=== PATIENT | male | born 1955 | race Caucasian/White ===

== ENCOUNTER 2018-01-18 09:15 | Outpatient (RCR) | payer BC, SELFPAY ==
[2018-01-04 09:37] VITALS: BP 156/98; PULSE 82; RESP 18; TEMP 36.3; BMI 28.6
--- NOTE | 2018-01-04 11:03 | PCM.WC.HP ---
(1) Wound of right leg Status: Acute Current Visit: Yes Qualifiers: Encounter type: initial encounter Qualified Code(s): S81.801A - Unspecified open wound, right lower leg, initial encounter Code(s): S81.801A - Unspecified open wound, right lower leg, initial encounter (2) Chronic venous insufficiency Status: Chronic Current Visit: Yes Code(s): I87.2 - Venous insufficiency (chronic) (peripheral) (3) Venous hypertension of right lower extremity Status: Chronic Current Visit: Yes Code(s): I87.301 - Chronic venous hypertension (idiopathic) without complications of right lower extremity (4) Varicose veins with inflammation Status: Chronic Current Visit: Yes Code(s): I83.10 - Varicose veins of unspecified lower extremity with inflammation (5) Hypertension Status: Chronic Current Visit: No Code(s): I10 - Essential (primary) hypertension (6) Atrial fibrillation Status: Chronic Current Visit: No Code(s): I48.91 - Unspecified atrial fibrillation (7) Hyperlipidemia Status: Chronic Current Visit: No Code(s): E78.5 - Hyperlipidemia, unspecified (8) Swelling of right lower extremity Status: Chronic Current Visit: Yes Code(s): M79.89 - Other specified soft tissue disorders (9) Edema of right lower extremity Status: Chronic Current Visit: Yes Code(s): R60.0 - Localized edema (10) History of mitral valve replacement Status: Chronic Current Visit: No Code(s): Z95.2 - Presence of prosthetic heart valve (11) Hyperpigmentation Status: Chronic Current Visit: Yes Code(s): L81.9 - Disorder of pigmentation, unspecified History of Present Illness Chief Complaint: Traumatic wound of the right anterior tibial surface, having occurred approximately 3-4 weeks prior to presentation History of Wound: This is a 62-year-old male who presents with a traumatic wound of the right anterior tibial surface. The patient indicates that he traumatized the right anterior tibial surface approximately 3-4 weeks ago, resulting in an open wound. He has been self treating. Approximately 4-5days ago, very profuse bleeding occurred from the site, prompting him to seek medical attention at the emergency department at [facility]. Patient was placed on Keflex 500 mg p.o. 4 times daily, and referred for further evaluation and management. 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 He denies a history of thrombophlebitis in the past. He has previously been treated for an ulceration on the right anterior tibial surface. He claims to have swelling in his right lower extremity, worse at the end of the day. He sleeps in a chair, with his legs in a dependent position. He has stigmata of chronic venous insufficiency, with large, bulging varicosities in his right lower extremity, as well as areas of hyperpigmentation on the right anterior tibial surface and near the right medial malleolus. Past Medical History Past Medical History: Chronic Problems Chronic venous insufficiency (Chronic) Venous hypertension of right lower extremity (Chronic) Varicose veins with inflammation (Chronic) Hypertension (Chronic) Atrial fibrillation (Chronic) Hyperlipidemia (Chronic) Swelling of right lower extremity (Chronic) Edema of right lower extremity (Chronic) History of mitral valve replacement (Chronic) Hyperpigmentation (Chronic) Past Medical History: The patient has a history of hypertension and hyperlipidemia. He has also undergone mitral valve replacement. He suffers from atrial fibrillation. The patient denies a history of myocardial infarction, congestive heart failure, cerebrovascular accident, cancer, renal disease, pulmonary disease, and thyroid disease. Surgical History: - - Patient has previously undergone mitral valve replacement. Home Medications: Ambulatory Orders Medication Instructions Recorded Amoxicillin/Potassium Clav [Amox 1 each PO BID 06/20/14 Tr-K Clv 500-125 mg Tab] Losartan Potassium [Cozaar] 100 mg PO DAILY 06/20/14 - Family History Paternal - - The patient's father at the age of 74 with a history of chronic obstructive pulmonary disease. The patient's mother at age of 83 with a history of chronic obstructive pulmonary disease. 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 He denies the use of tobacco products. He consumes alcohol in moderate amounts. He is . Lives: Spouse/ Significant Other Smoking Status: Never smoker Tobacco Use: Non-smoker Alcohol: Occasional Drugs: None Review of Systems Constitutional: Denies: Chills, Fever, Weight Change Eyes: Denies: Pain, Vision Change HEENT: Denies: Difficulty Hearing, Difficulty Swallowing, Sinus Congestion Cardiovascular: Denies: Chest Pain, Palpitations Respiratory: Denies: Cough, Shortness of Breath Gastrointestinal: Denies: Diarrhea, Nausea, Vomiting Genitourinary: Denies: Dysuria, Hematuria Endocrine: Denies: Heat/ Cold Intolerance, Polydipsia, Polyuria Hematologic/ Lymphatic: Denies: Easy Bruising, Easy Bleeding - Physical Exam Vital Signs Temp Pulse Resp BP 97.3 F L 82 18 156/98 H 01/04/18 09:37 10 09:37 01/04/18 09:37 01/04/18 09:37 General: Alert, Oriented x3, Cooperative, No apparent distress, Well developed, Well nourished HEENT: Atraumatic, PERRLA, EOMI, Normocephalic Oral: Moist Mucosa, No Gingival or Mucosal Lesions/ Ulcerations Neck: Supple, No JVD, Negative Carotid Bruits, Negative Hepatojugular Reflux, No Nodes, No Nuchal Rigidity, Trachea Midline Lungs: Clear to auscultation, Normal air movement, No rhonchi, No wheeze, No rales Cardiovascular: Regular rate, Regular Rhythm, Normal S1, Normal S2, No murmurs Abdomen: Soft, Non Tender, Non-Distended Extremities: No clubbing, No cyanosis, No Calf Tenderness, - - An open wound is noted on the right anterior tibial surface. Dimensions are documented elsewhere. The wound is pink and healthy in appearance. There is no sign of infection or cellulitis. Mild swelling and edema is noted in the right lower extremity. Circumference measurements are documented elsewhere. Severe hyperpigmentation is noted on the right anterior tibial surface about the patient's wound, as well as near the right medial malleolus. There are large varicosities noted on the medial aspect of the right lower extremity in the supramalleolar area. Skin: No rashes Wound Measurements and Assessment WC - Nurse 1 - General Ulcer Measurement Start: 01/04/18 09:34 Freq: Status: Active Protocol: Activity Type Activity Date Activity User E-Sign Co-Sign Detail Recorded Client Recorded Date Recorded By Document 01/04/18 09:37 [id number] 01/04/18 09:51 01/04/18 09:37 Wound Center Nurse 1 [Ulcer Assessment] #3 right cook -Combined with other wound No -Current Size (cm) - Length 2.8 -Current Size (cm) - Width 2.0 -Current Size (cm) - Depth 0.1 -Total Square Cm 5.60 -Date of Last Picture (Recall this 01/04/18 field) -Photo Taken Yes -Epithelialization Small 1-33% -Tunneling No -Undermining/Tunneling No -Circular Undermining No -Classification - Thickness Full Thickness without Exposed Support Structure -Exudate Amt Large (67-100%) -Exudate Type Serosanguineous -Wound Margin Distinct, Outline Attached -Granulation Amt Large (67-100%) -Granulation Quality Red -Slough/Fibrin Yes -Necrosis Amt Small (1-33%) -Necrotic Tissue Type Adherent Slough -Structure Exposed Fascia Fat Layer Exposed -Texture (Yaquelin-wound Skin Appearance) Assessed Localized Edema Scarring -Moisture ([place]elin-wound Skin Appearance No Abnormality ) Assessed -Color ([place]aquelin-wound Skin Appearance) Ecchymosis Erythema Hemosiderin Staining -Temperature ([place]elin-wound Skin No Abnormality Appearance) (Pt Warm) -Tenderness on Palpation ([place]aquelin-wound No Skin Appearance) -Ulcer Cleansing Rinsed/ Irrigated with Saline -Foul Odor after Cleansing No -Anesthetic Used 4% Lidocaine Solution [Edema Assessment] -Right Calf (cm) 45.7 -Right Ankle (cm) 25.4 -Left Calf (cm) 40.6 -Left Ankle (cm) 25.0 WC - Nurse 2 - General Ulcer CM Notes Start: 01/04/18 09:34 Freq: Status: Active Protocol: Activity Type Activity Date Activity User E-Sign Co-Sign Detail Recorded Client Recorded Date Recorded By Document 01/04/18 10:34 BRENDEN [id number] 01/04/18 10:38 BRENDEN 01/04/18 10:34 Wound Center Nurse 2 [Procedure/Treatment] #3 right cook -Time 10:34 -Correct Patient Yes -Correct Side, Site, Position Yes -Correct Procedure Yes -Procedure Performed No -Wound/Ulcer Outcome Not Healed -Ulcer Cleansing Rinsed/ Irrigated with Saline -Foul Odor after Cleansing No -Bioengineered Tissue No -Topical Lidocaine (%) 4 -Lidocaine (ml) 5 -Bleeding Controlled with NA -Treatment Response Procedure Tolerated Well [See Physician Procedure note for Specifics] Pain Scale: 0-10 Numeric [Pain] -Is Patient Pain Free? Yes Musculoskeletal: No Muscle Wasting Neurological: Cranial nerves II-XII grossly intact, Neuro grossly intact Psych/Mental Status: Normal Affect, Appropriate, Alert and oriented to time, place, person, mood and affect Debridement Note Post-Debridement Measurements/Treatment WC - Nurse 2 - General Ulcer CM Notes Start: 01/04/18 09:34 Freq: Status: Active Protocol: Activity Type Activity Date Activity User E-Sign Co-Sign Detail Recorded Client Recorded Date Recorded By Document 01/04/18 10:34 BRENDEN [id number] 01/04/18 10:38 BRENDEN 01/04/18 10:34 Wound Center Nurse 2 #3 right cook -Time 10:34 -Correct Patient Yes -Correct Side, Site, Position Yes -Correct Procedure Yes -Procedure Performed No -Wound/Ulcer Outcome Not Healed -Ulcer Cleansing Rinsed/ Irrigated with Saline -Foul Odor after Cleansing No -Bioengineered Tissue No -Topical Lidocaine (%) 4 -Lidocaine (ml) 5 -Bleeding Controlled with NA -Treatment Response Procedure Tolerated Well Pain Scale: 0-10 Numeric Is Patient Pain Free? Yes No debridement was completed today - Because the patient relates severe bleeding from the wound site approximately 4-5 days ago, which prompted a visit to the emergency department at [facility], debridement was not performed today. In addition, because the patient is on a systemic anticoagulation agent, debridement was not thought optimal today, under the circumstances. Assessment/Plan Active Problems Wound of right leg (Acute) Chronic venous insufficiency (Chronic) Venous hypertension of right lower extremity (Chronic) Varicose veins with inflammation (Chronic) Swelling of right lower extremity (Chronic) Edema of right lower extremity (Chronic) Hyperpigmentation (Chronic) Assessment: This is a 62-year-old male with stigmata of chronic venous disease. He presents with a wound on the right anterior tibial surface, which appears to be related to recent trauma. Physical examination reveals stigmata of chronic venous insufficiency and venous hypertension. Review of the patient's prior medical records reveals a noninvasive lower extremity arterial study performed in June 2014 which was normal. A venous duplex examination revealed significant venous insufficiency involving the right great saphenous vein, the right accessory saphenous vein, and an incompetent mat repairer vein 11 cm proximal to the right medial malleolus. Plan: Conservative treatment measures are to be implemented. Leg elevation has been recommended. The patient indicates that he sleeps in an upright position, the practice which has been discouraged. The patient has been advised to sleep on a flat mattress, with legs level with his heart. He has been encouraged to elevate his lower extremities as much as possible, even during daytime hours. His legs are to be elevated to heart level, or higher. Prolonged idle sitting has been discouraged. Activity has been encouraged. The patient's current weight appears to be reasonable. Compression is to be implemented by means of a SurePress wrap, which will be applied by the patient on a daily basis. Ultimately, we will transition to the use of compression by means of graduated compression stockings of at least 20-30 mmHg compression. The patient may ultimately be a candidate for endovenous ablation of the incompetent superficial veins in the right lower extremity. We are to use Ashley topically. Because of the recent bleeding episode, we will use wound veil or Adaptic adjacent to the wound with each dressing change. If bleeding is to occur from the site again, patient has been advised to apply compression and to elevate his leg above heart level. The patient is to undergo routine laboratory studies, including a CBC, CMP, and serum prealbumin. Venous duplex examination and a noninvasive lower extremity arterial study will also be performed. Patient will return in 1 week for reassessment. Influenza vaccine was not administered today. The patient is not a smoker. The patient weighs 220 pounds. He stands 6 feet 1 inch tall. His BMI is 28.6. His places him in an overweight category. Mild weight loss has been recommended, with collaboration from his primary care physician.
[2018-01-04 13:56] LABS: Hematocrit 41.7 % (40-54); Mean Corp Hgb Conc 33.6 g/gl (32-36); Mean Corpuscular Hgb 32.5 pg (27.0-32.0); Mean Corpuscular Volume 96.8 fL (80-94); Mean Platelet Vol. 10.7 fl (6.2-12.0); Platelet Count 199 K/mm3 (150-450); RBC Distribution Width CV 12.5 % (11.6-14.6); Red Blood Count 4.31 M/mm3 (4.6-6.2); White Blood Count 6.8 K/mm3 (4.4-11.0)
[2018-01-04 13:59] LABS: Scan Indicated on CBC? Y/N NO
[2018-01-04 14:09] LABS: ALB/GLOB Ratio 0.9 RATIO (0.9-2.4); AST(SGOT) 29 U/L (15-37); Alanine Aminotransfer ALT/SGPT 33 U/L (16-61); Albumin, Serum 3.7 g/dL (3.2-5.0); Alkaline Phosphatase 72 U/L (45-117); Anion Gap 6 (5-15); BUN 16 mg/dL (7-18); BUN/Creat Ratio 16.2 RATIO (10-20); Calcium,Total 8.7 mg/dL (8.5-10.1); Chloride 104 mmol/L (98-107); Creatinine, Serum 0.98 mg/dL (0.70-1.30); EST Glomerular Filtration Rate 82 mL/min (>60); Est Glom Filt Rate - Afr Amer 99 mL/min (>60); Estimated Creatinine Clearance 89.46 ml/min; Glucose 87 mg/dL (74-106); Potassium 4.6 mmol/L (3.5-5.1); Prealbumin 23.9 mg/dL (20.0-40.0); Protein, Total 7.7 g/dL (6.4-8.2); Sodium Level 139 mmol/L (136-145)
[2018-01-11 09:30] VITALS: BP 133/86; PULSE 64; RESP 18; TEMP 36.3; BMI 28.6
--- NOTE | 2018-01-11 10:05 | HP.PCM_ITS ---
(1) Wound of right leg Status: Acute Current Visit: Yes Qualifiers: Encounter type: subsequent encounter Qualified Code(s): S81.801D - Unspecified open wound, right lower leg, subsequent encounter Code(s): S81.801A - Unspecified open wound, right lower leg, initial encounter (2) Chronic venous insufficiency Status: Chronic Current Visit: Yes Code(s): I87.2 - Venous insufficiency (chronic) (peripheral) (3) Venous hypertension of right lower extremity Status: Chronic Current Visit: Yes Code(s): I87.301 - Chronic venous hypertension (idiopathic) without complications of right lower extremity (4) Varicose veins with inflammation Status: Chronic Current Visit: Yes Code(s): I83.10 - Varicose veins of unspecified lower extremity with inflammation (5) Hypertension Status: Chronic Current Visit: No Code(s): I10 - Essential (primary) hypertension (6) Atrial fibrillation Status: Chronic Current Visit: No Code(s): I48.91 - Unspecified atrial fibrillation (7) Hyperlipidemia Status: Chronic Current Visit: No Code(s): E78.5 - Hyperlipidemia, unspecified (8) Swelling of right lower extremity Status: Chronic Current Visit: Yes Code(s): M79.89 - Other specified soft tissue disorders (9) Edema of right lower extremity Status: Chronic Current Visit: Yes Code(s): R60.0 - Localized edema (10) History of mitral valve replacement Status: Chronic Current Visit: No Code(s): Z95.2 - Presence of prosthetic heart valve (11) Hyperpigmentation Status: Chronic Current Visit: Yes Code(s): L81.9 - Disorder of pigmentation, unspecified History of Present Illness Chief Complaint: Traumatic wound of the right anterior tibial surface, having occurred approximately 3-4 weeks prior to presentation History of Wound: This is a 62-year-old male who presented with a traumatic wound of the right anterior tibial surface. The patient indicates that he traumatized the right anterior tibial surface approximately 3-4 weeks prior to presentation, resulting in an open wound. He has been self treating. Approximately 4-5 days prior to presentation, very profuse bleeding occurred from the site, prompting him to seek medical attention at the emergency department at [facility]. The patient was placed on Keflex 500 mg p.o. 4 times daily, and referred for further evaluation and management. 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 He denies a history of thrombophlebitis in the past. He has previously been treated for an ulceration on the right anterior tibial surface. He claims to have swelling in his right lower extremity, worse at the end of the day. He sleeps in a chair, with his legs in a dependent position. He has stigmata of chronic venous insufficiency, with large, bulging varicosities in his right lower extremity, as well as areas of hyperpigmentation on the right anterior tibial surface and near the right medial malleolus. Past Medical History Past Medical History: Chronic Problems Chronic venous insufficiency (Chronic) Venous hypertension of right lower extremity (Chronic) Varicose veins with inflammation (Chronic) Hypertension (Chronic) Atrial fibrillation (Chronic) Hyperlipidemia (Chronic) Swelling of right lower extremity (Chronic) Edema of right lower extremity (Chronic) History of mitral valve replacement (Chronic) Hyperpigmentation (Chronic) Surgical History: - - Patient has previously undergone mitral valve replacement. Home Medications: Ambulatory Orders Medication Instructions Recorded Amoxicillin/Potassium Clav [Amox 1 each PO BID 06/20/14 Tr-K Clv 500-125 mg Tab] Losartan Potassium [Cozaar] 100 mg PO DAILY 06/20/14 - Family History Paternal - - The patient's father at the age of 74 with a history of chronic obstructive pulmonary disease. The patient's mother at age of 83 with a history of chronic obstructive pulmonary disease. Lives: Spouse/ Significant Other Smoking Status: Never smoker Tobacco Use: Non-smoker Alcohol: Occasional Drugs: None Review of Systems Constitutional: Denies: Chills, Fever, Weight Change Eyes: Denies: Pain, Vision Change HEENT: Denies: Difficulty Hearing, Difficulty Swallowing, Sinus Congestion Cardiovascular: Denies: Chest Pain, Palpitations Respiratory: Denies: Cough, Shortness of Breath Gastrointestinal: Denies: Diarrhea, Nausea, Vomiting Genitourinary: Denies: Dysuria, Hematuria Endocrine: Denies: Heat/ Cold Intolerance, Polydipsia, Polyuria Hematologic/ Lymphatic: Denies: Easy Bruising, Easy Bleeding - Physical Exam Vital Signs Temp Pulse Resp BP 97.3 F L 64 18 133/86 H 01/11/18 09:30 01/11/18 09:30 01/11/18 09:30 01/11/18 09:30 General: Alert, Oriented x3, Cooperative, No apparent distress, Well developed, Well nourished HEENT: Atraumatic, PERRLA, EOMI, Normocephalic Oral: Moist Mucosa Neck: No JVD Lungs: Normal air movement Abdomen: Non-Distended Extremities: No clubbing, No cyanosis, No Calf Tenderness, - - The swelling and edema in the right lower extremity is markedly improved. Circumference measurements are documented elsewhere, and are noted to have decreased since the patient's initial visit. The wound on the right anterior tibial surface persists. There is no sign of infection or cellulitis. Dimensions are documented elsewhere. There is a small amount of bioburden. Hyperpigmentation is noted on the right anterior tibial surface and near the right medial malleolus, manifestations of the patient's chronic venous disease. Wound Measurements and Assessment WC - Nurse 1 - General Ulcer Measurement Start: 01/04/18 09:34 Freq: Status: Active Protocol: Activity Type Activity Date Activity User E-Sign Co-Sign Detail Recorded Client Recorded Date Recorded By Document 01/11/18 09:30 TN [id number] 01/11/18 09:32 TN 01/11/18 09:30 Wound Center Nurse 1 [Ulcer Assessment] #3 right cook -Combined with other wound No -Current Size (cm) - Length 2.7 -Current Size (cm) - Width 1.6 -Current Size (cm) - Depth 0.2 -Total Square Cm 4.32 -Photo Taken No -Epithelialization None Present -Tunneling No -Undermining/Tunneling No -Circular Undermining No -Classification - Thickness Full Thickness without Exposed Support Structure -Change in Wound Grade/Stage No Query Text:If change please identify the Stage/Grade in the comment (ie. S2 G3) -Exudate Amt Small (1-33%) -Exudate Type Serosanguineous -Wound Margin Flat & Intact -Granulation Amt Small (1-33%) -Granulation Quality [place] -Slough/Fibrin Yes -Necrosis Amt Large (67-100%) -Necrotic Tissue Type Adherent Slough -Structure Exposed None/Limited to Skin Breakdown -Texture ([place]-wound Skin Appearance) Assessed Scarring -Moisture ([place]-wound Skin Appearance No Abnormality ) Assessed -Color ([place]-wound Skin Appearance) Assessed Erythema Hemosiderin Staining -Temperature ([place]-wound Skin No Abnormality Appearance) (Pt Warm) -Tenderness on Palpation ([place]-wound No Skin Appearance) -Ulcer Cleansing Rinsed/ Irrigated with Saline -Foul Odor after Cleansing No -Anesthetic Used 5% Lidocaine Gel [Edema Assessment] -Lower Limb Edema Present No -Right Calf (cm) 41.0 -Right Ankle (cm) 25.7 WC - Nurse 2 - General Ulcer CM Notes Start: 01/04/18 09:34 Freq: Status: Active Protocol: Activity Type Activity Date Activity User E-Sign Co-Sign Detail Recorded Client Recorded Date Recorded By Document 01/11/18 09:44 JS [id number] 01/11/18 09:46 JS 01/11/18 09:44 Wound Center Nurse 2 [Procedure/Treatment] #3 right coko -Time 09:48 -Correct Patient Yes -Correct Side, Site, Position Yes -Correct Procedure Yes -Procedure Performed Yes -Type of Procedure Debridement -Clinical Debridement Subcutaneous -Post Debridement Size (cm) - Length 3.0 -Post Debridement Size (cm) - Width 1.7 -Post Debridement Size (cm) - Depth 0.1 -Total Square Cm 5.10 -Wound/Ulcer Outcome Not Healed -Ulcer Cleansing Rinsed/ Irrigated with Saline -Foul Odor after Cleansing No -Bioengineered Tissue No -Topical Lidocaine (%) 4 -Lidocaine (ml) 5 -Bleeding Controlled with NA -Treatment Response Procedure Tolerated Well [See Physician Procedure note for Specifics] Pain Scale: 0-10 Numeric [Pain] -Is Patient Pain Free? Yes Musculoskeletal: No Muscle Wasting Neurological: Cranial nerves II-XII grossly intact, Neuro grossly intact Psych/Mental Status: Normal Affect, Appropriate, Alert and oriented to time, place, person, mood and affect Debridement Note Post-Debridement Measurements/Treatment WC - Nurse 2 - General Ulcer CM Notes Start: 01/04/18 09:34 Freq: Status: Active Protocol: Activity Type Activity Date Activity User E-Sign Co-Sign Detail Recorded Client Recorded Date Recorded By Document 01/04/18 10:34 [id number] 01/04/18 10:38 JS Document 01/11/18 09:44 JS [id number] 01/11/18 09:46 JS 01/04/18 01/11/18 10:34 09:44 Wound Center Nurse 2 #3 right cook -Time 10:34 09:48 -Correct Patient Yes Yes -Correct Side, Site, Position Yes Yes -Correct Procedure Yes Yes -Procedure Performed No Yes -Type of Procedure Debridement -Clinical Debridement Subcutaneous -Post Debridement Size (cm) - Length 3.0 -Post Debridement Size (cm) - Width 1.7 -Post Debridement Size (cm) - Depth 0.1 -Total Square Cm 5.10 -Wound/Ulcer Outcome Not Healed Not Healed -Ulcer Cleansing Rinsed/ Rinsed/ Irrigated with Irrigated with Saline Saline -Foul Odor after Cleansing No No -Bioengineered Tissue No No -Topical Lidocaine (%) 4 4 -Lidocaine (ml) 5 5 -Bleeding Controlled with NA NA -Treatment Response Procedure Procedure Tolerated Well Tolerated Well Pain Scale: 0-10 Numeric Is Patient Pain Free? Yes Yes Laterality: Right - Anterior tibial surface Type of Debridement: Excisional debridement Anesthesia Used: 4% Lidocaine Solution Depth: Down to and including healthy tissue, in the subcutaneous layer Percentage of wound debrided: 100 Instrument Used: 7mm curette Severity: Fat Layer Exposed Amount of bleeding with debridement: Mild Bleeding Controlled with: Compression and gauze Patient tolerated procedure well Assessment/Plan Active Problems Wound of right leg (Acute) Chronic venous insufficiency (Chronic) Venous hypertension of right lower extremity (Chronic) Varicose veins with inflammation (Chronic) Swelling of right lower extremity (Chronic) Edema of right lower extremity (Chronic) Hyperpigmentation (Chronic) Assessment: This is a 62-year-old male with stigmata of chronic venous disease. He presents with a wound on the right anterior tibial surface, which appears to be related to recent trauma. Physical examination reveals stigmata of chronic venous insufficiency and venous hypertension. Review of the patient's prior medical records reveals a noninvasive lower extremity arterial study performed in June 2014 which was normal. A venous duplex examination revealed significant venous insufficiency involving the right great saphenous vein, the right accessory saphenous vein, and an incompetent process safety manager vein 11 cm proximal to the right medial malleolus. The patient has undergone laboratory studies on 01/04/2018, the results of which have been reviewed. Are as follows: Glucose 87, BUN 16, creatinine 0.98, total protein 7.7, albumin 3.7, calcium 8.7, AST 29, alkaline phosphatase 72, ALT 33, total bilirubin 0.80, sodium 139, potassium 4.6, chloride 104, serum prealbumin 23.9, white blood count 6.8, hemoglobin 14.0, hematocrit 41.7, platelets 199,000. Plan: Conservative treatment measures are to be continued. Leg elevation has been recommended. The patient indicates that he sleeps in an upright position, the practice which has been discouraged. The patient has been advised to sleep on a flat mattress, with legs level with his heart. He has been encouraged to elevate his lower extremities as much as possible, even during daytime hours. His legs are to be elevated to heart level, or higher. Prolonged idle sitting has been discouraged. Activity has been encouraged. The patient's current weight appears to be reasonable. Compression is to be continued by means of a SurePress wrap, which will be applied by the patient on a daily basis. The patient has also been provided a prescription for knee-high graduated compression stockings of 20-30 mmHg, and will obtain these compression stockings in the near future. The patient may ultimately be a candidate for endovenous ablation of the incompetent superficial veins in the right lower extremity. We are to use Ashley topically. Because of the recent bleeding episode, we will use wound veil or Adaptic adjacent to the wound with each dressing change. If bleeding is to occur from the site again, patient has been advised to apply compression and to elevate his leg above heart level. Venous duplex examination and a noninvasive lower extremity arterial study will also be performed, and have been scheduled for January 20. Patient will return in 1 week for reassessment. Influenza vaccine was not administered today. The patient is not a smoker. The patient weighs 220 pounds. He stands 6 feet 1 inch tall. His BMI is 28.6. His places him in an overweight category. Mild weight loss has been recommended, with collaboration from his primary care physician.
[2018-01-18 09:25] VITALS: BP 126/83; PULSE 68; RESP 18; TEMP 36.7; BMI 28.6
--- NOTE | 2018-01-18 10:08 | HP.PCM_ITS ---
(1) Wound of right leg Status: Acute Current Visit: Yes Qualifiers: Encounter type: subsequent encounter Qualified Code(s): S81.801D - Unspecified open wound, right lower leg, subsequent encounter Code(s): S81.801A - Unspecified open wound, right lower leg, initial encounter (2) Chronic venous insufficiency Status: Chronic Current Visit: Yes Code(s): I87.2 - Venous insufficiency (chronic) (peripheral) (3) Venous hypertension of right lower extremity Status: Chronic Current Visit: Yes Code(s): I87.301 - Chronic venous hypertension (idiopathic) without complications of right lower extremity (4) Varicose veins with inflammation Status: Chronic Current Visit: Yes Code(s): I83.10 - Varicose veins of unspecified lower extremity with inflammation (5) Hypertension Status: Chronic Current Visit: No Code(s): I10 - Essential (primary) hypertension (6) Atrial fibrillation Status: Chronic Current Visit: No Code(s): I48.91 - Unspecified atrial fibrillation (7) Hyperlipidemia Status: Chronic Current Visit: No Code(s): E78.5 - Hyperlipidemia, unspecified (8) Swelling of right lower extremity Status: Chronic Current Visit: Yes Code(s): M79.89 - Other specified soft tissue disorders (9) Edema of right lower extremity Status: Chronic Current Visit: Yes Code(s): R60.0 - Localized edema (10) History of mitral valve replacement Status: Chronic Current Visit: No Code(s): Z95.2 - Presence of prosthetic heart valve (11) Hyperpigmentation Status: Chronic Current Visit: Yes Code(s): L81.9 - Disorder of pigmentation, unspecified History of Present Illness Chief Complaint: Traumatic wound of the right anterior tibial surface, having occurred approximately 3-4 weeks prior to presentation History of Wound: This is a 62-year-old male who presented with a traumatic wound of the right anterior tibial surface. The patient indicates that he traumatized the right anterior tibial surface approximately 3-4 weeks prior to presentation, resulting in an open wound. He has been self treating. Approximately 4-5 days prior to presentation, very profuse bleeding occurred from the site, prompting him to seek medical attention at the emergency department at [facility]. The patient was placed on Keflex 500 mg p.o. 4 times daily, and referred for further evaluation and management. 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 He denies a history of thrombophlebitis in the past. He has previously been treated for an ulceration on the right anterior tibial surface. He claims to have swelling in his right lower extremity, worse at the end of the day. He sleeps in a chair, with his legs in a dependent position. He has stigmata of chronic venous insufficiency, with large, bulging varicosities in his right lower extremity, as well as areas of hyperpigmentation on the right anterior tibial surface and near the right medial malleolus. Past Medical History Past Medical History: Chronic Problems Chronic venous insufficiency (Chronic) Venous hypertension of right lower extremity (Chronic) Varicose veins with inflammation (Chronic) Hypertension (Chronic) Atrial fibrillation (Chronic) Hyperlipidemia (Chronic) Swelling of right lower extremity (Chronic) Edema of right lower extremity (Chronic) History of mitral valve replacement (Chronic) Hyperpigmentation (Chronic) Surgical History: - - Patient has previously undergone mitral valve replacement. Home Medications: Ambulatory Orders Medication Instructions Recorded Amoxicillin/Potassium Clav [Amox 1 each PO BID 06/20/14 Tr-K Clv 500-125 mg Tab] Losartan Potassium [Cozaar] 100 mg PO DAILY 06/20/14 - Family History Paternal - - The patient's father at the age of 74 with a history of chronic obstructive pulmonary disease. The patient's mother at age of 83 with a history of chronic obstructive pulmonary disease. Lives: Spouse/ Significant Other Smoking Status: Never smoker Tobacco Use: Non-smoker Alcohol: Occasional Drugs: None Review of Systems Constitutional: Denies: Chills, Fever, Weight Change Eyes: Denies: Pain, Vision Change HEENT: Denies: Difficulty Hearing, Difficulty Swallowing, Sinus Congestion Cardiovascular: Denies: Chest Pain, Palpitations Respiratory: Denies: Cough, Shortness of Breath Gastrointestinal: Denies: Diarrhea, Nausea, Vomiting Genitourinary: Denies: Dysuria, Hematuria Endocrine: Denies: Heat/ Cold Intolerance, Polydipsia, Polyuria Hematologic/ Lymphatic: Denies: Easy Bruising, Easy Bleeding - Physical Exam Vital Signs Temp Pulse Resp BP 98.0 F 68 18 126/83 H 01/18/18 09:25 01/18/18 09:25 01/18/18 09:25 01/18/18 09:25 General: Alert, Oriented x3, Cooperative, No apparent distress, Well developed, Well nourished HEENT: Atraumatic, PERRLA, EOMI, Normocephalic Oral: Moist Mucosa Neck: No JVD Lungs: Normal air movement Abdomen: Non-Distended Extremities: No clubbing, No cyanosis, No edema, No Calf Tenderness, - - The ulceration on the right medial calf appears smaller in size. Measurements are also smaller. There is a small amount of bioburden. There is no sign of infection or cellulitis. Dimensions are documented elsewhere. Skin: No rashes Wound Measurements and Assessment WC - Nurse 1 - General Ulcer Measurement Start: 01/04/18 09:34 Freq: Status: Active Protocol: Activity Type Activity Date Activity User E-Sign Co-Sign Detail Recorded Client Recorded Date Recorded By Document 01/18/18 09:25 [id number] 01/18/18 09:27 01/18/18 09:25 Wound Center Nurse 1 [Ulcer Assessment] #3 right cook -Combined with other wound No -Current Size (cm) - Length 2.5 -Current Size (cm) - Width 1.6 -Current Size (cm) - Depth 0.1 -Total Square Cm 4.00 -Photo Taken No -Epithelialization Small 1-33% -Tunneling No -Undermining/Tunneling No -Circular Undermining No -Classification - Thickness Full Thickness without Exposed Support Structure -Exudate Amt Small (1-33%) -Exudate Type Serosanguineous -Wound Margin Distinct, Outline Attached -Granulation Amt Small (1-33%) -Granulation Quality Red -Slough/Fibrin Yes -Necrosis Amt Large (67-100%) -Necrotic Tissue Type Adherent Slough -Structure Exposed Fascia Fat Layer Exposed -Texture (Yaquelin-wound Skin Appearance) Assessed Friable Scarring -Moisture ([place]elin-wound Skin Appearance No Abnormality ) Assessed -Color ([place]aquelin-wound Skin Appearance) Assessed Hemosiderin Staining -Temperature ([place]elin-wound Skin No Abnormality Appearance) (Pt Warm) -Tenderness on Palpation ([place]aquelin-wound No Skin Appearance) -Ulcer Cleansing Rinsed/ Irrigated with Saline -Foul Odor after Cleansing No -Anesthetic Used 5% Lidocaine Gel [Edema Assessment] -Lower Limb Edema Present Yes -Right Calf (cm) 40.0 -Right Ankle (cm) 25.0 - Nurse 2 - General Ulcer CM Notes Start: 01/04/18 09:34 Freq: Status: Active Protocol: Activity Type Activity Date Activity User E-Sign Co-Sign Detail Recorded Client Recorded Date Recorded By Document 01/18/18 09:42 [id number] 01/18/18 09:52 01/18/18 09:42 Wound Center Nurse 2 [Procedure/Treatment] #3 right cook -Time 09:43 -Correct Patient Yes -Correct Side, Site, Position Yes -Correct Procedure Yes -Procedure Performed Yes -Type of Procedure Debridement -Clinical Debridement Subcutaneous -Post Debridement Size (cm) - Length 3.0 -Post Debridement Size (cm) - Width 1.7 -Post Debridement Size (cm) - Depth 0.1 -Total Square Cm 5.10 -Wound/Ulcer Outcome Healed- Epithelialized -Ulcer Cleansing Rinsed/ Irrigated with Saline -Foul Odor after Cleansing No -Bioengineered Tissue No -Topical Lidocaine (%) 4 -Lidocaine (ml) 5 -Bleeding Controlled with NA -Treatment Response Procedure Tolerated Well [See Physician Procedure note for Specifics] Pain Scale: 0-10 Numeric [Pain] -Is Patient Pain Free? Yes Musculoskeletal: No Muscle Wasting Neurological: Cranial nerves II-XII grossly intact, Neuro grossly intact Psych/Mental Status: Normal Affect, Appropriate, Alert and oriented to time, place, person, mood and affect Debridement Note Post-Debridement Measurements/Treatment - Nurse 2 - General Ulcer CM Notes Start: 01/04/18 09:34 Freq: Status: Active Protocol: Activity Type Activity Date Activity User E-Sign Co-Sign Detail Recorded Client Recorded Date Recorded By Document 01/04/18 10:34 [id number] 01/04/18 10:38 JS Document 01/11/18 09:44 JS [id number] 01/11/18 09:46 JS Document 01/18/18 09:42 [id number] 01/18/18 09:52 JS 01/04/18 01/11/18 01/18/18 10:34 09:44 09:42 Wound Center Nurse 2 #3 right cook -Time 10:34 09:48 09:43 -Correct Patient Yes Yes Yes -Correct Side, Site, Position Yes Yes Yes -Correct Procedure Yes Yes Yes -Procedure Performed No Yes Yes -Type of Procedure Debridement Debridement -Clinical Debridement Subcutaneous Subcutaneous -Post Debridement Size (cm) - Length 3.0 3.0 -Post Debridement Size (cm) - Width 1.7 1.7 -Post Debridement Size (cm) - Depth 0.1 0.1 -Total Square Cm 5.10 5.10 -Wound/Ulcer Outcome Not Healed Not Healed Healed- Epithelialized -Ulcer Cleansing Rinsed/ Rinsed/ Rinsed/ Irrigated with Irrigated with Irrigated with Saline Saline Saline -Foul Odor after Cleansing No No No -Bioengineered Tissue No No No -Topical Lidocaine (%) 4 4 4 -Lidocaine (ml) 5 5 5 -Bleeding Controlled with NA NA NA -Treatment Response Procedure Procedure Procedure Tolerated Well Tolerated Well Tolerated Well Pain Scale: 0-10 Numeric Is Patient Pain Free? Yes Yes Yes Laterality: Right - Medial calf Type of Debridement: Excisional debridement Anesthesia Used: 5% Lidocaine Gel Depth: Down to and including healthy tissue, in the subcutaneous layer Percentage of wound debrided: 100 Instrument Used: 7mm curette Severity: Fat Layer Exposed Amount of bleeding with debridement: Mild Bleeding Controlled with: Compression and gauze Patient tolerated procedure well Assessment/Plan Active Problems Wound of right leg (Acute) Chronic venous insufficiency (Chronic) Venous hypertension of right lower extremity (Chronic) Varicose veins with inflammation (Chronic) Swelling of right lower extremity (Chronic) Edema of right lower extremity (Chronic) Hyperpigmentation (Chronic) Assessment: This is a 62-year-old male with stigmata of chronic venous disease. He presents with a wound on the right anterior tibial surface, which appears to be related to recent trauma. Physical examination reveals stigmata of chronic venous insufficiency and venous hypertension. Review of the patient's prior medical records reveals a noninvasive lower extremity arterial study performed in June 2014 which was normal. A venous duplex examination revealed significant venous insufficiency involving the right great saphenous vein, the right accessory saphenous vein, and an incompetent manual writer vein 11 cm proximal to the right medial malleolus. The patient has undergone laboratory studies on 01/04/2018, the results of which have been reviewed. Are as follows: Glucose 87, BUN 16, creatinine 0.98, total protein 7.7, albumin 3.7, calcium 8.7, AST 29, alkaline phosphatase 72, ALT 33, total bilirubin 0.80, sodium 139, potassium 4.6, chloride 104, serum prealbumin 23.9, white blood count 6.8, hemoglobin 14.0, hematocrit 41.7, platelets 199,000. The patient has a venous duplex examination scheduled for later this week, the results of which will be awaited. Plan: Conservative treatment measures are to be continued. Leg elevation has been recommended. The patient indicates that he sleeps in an upright position, the practice which has been discouraged. The patient has been advised to sleep on a flat mattress, with legs level with his heart. He has been encouraged to elevate his lower extremities as much as possible, even during daytime hours. His legs are to be elevated to heart level, or higher. Prolonged idle sitting has been discouraged. Activity has been encouraged. The patient's current weight appears to be reasonable. Compression is to be continued by means of graduated compression stockings of 20-30 mmHg compression, which the patient has now obtained, and is wearing daily. The patient may ultimately be a candidate for endovenous ablation of the incompetent superficial veins in the right lower extremity. We will await the results of his upcoming venous duplex examination. We are to use Ashley topically. Because of the recent bleeding episode, we will use wound veil or Adaptic adjacent to the wound with each dressing change. If bleeding is to occur from the site again, patient has been advised to apply compression and to elevate his leg above heart level. Venous duplex examination and a noninvasive lower extremity arterial study will also be performed, and have been scheduled for January 20. Patient will return in 2 weeks for reassessment. Influenza vaccine was not administered today. The patient is not a smoker. The patient weighs 220 pounds. He stands 6 feet 1 inch tall. His BMI is 28.6. His places him in an overweight category. Mild weight loss has been recommended, with collaboration from his primary care physician.
== END 2018-01-19 23:59 ==
LOC: WC 09:15
PROVIDERS: Family Provider Family Medicine; PCP Family Medicine; Visit Provider Surgery
DX: I83.91 Asymptomatic varicose veins of right lower extremity (principal); E78.5 Hyperlipidemia, unspecified; M79.89 Other specified soft tissue disorders; Z95.2 Presence of prosthetic heart valve; R60.0 Localized edema; S81.831A Puncture wound without foreign body, right lower leg, initial encounter; W22.8XXA Striking against or struck by other objects, initial encounter; I48.2 Chronic atrial fibrillation; I11.0 Hypertensive heart disease with heart failure; I50.9 Heart failure, unspecified
CPT/HCPCS: 11042; 80053; 84134; 85027; 99213; G0463

== ENCOUNTER 2018-02-15 08:30 | Outpatient (RCR) | payer BC, SELFPAY ==
[2018-01-20 02:05] VITALS: BP 126/83; PULSE 68; RESP 18; TEMP 36.7
--- NOTE | 2018-01-20 08:47 | VDLE_ITS ---
Reason For Study: venous hypertension w/ venous stasis, edema RIGHT LEFT T/P Trunk is compressible. CFV is compressible, spontaneous, phasic, PTV is compressible. competent, and demonstrates normal RT PerV is compressible. augmentation. CFV, FV, Pop V are compressible with reflux FV is compressible, spontaneous, phasic, upon augmentation. competent and demonstrates normal SFJ is incompetent for greater than .5 augmentation. seconds. T/P Trunk is compressible. GSV is incompetent throughout for greater PTV is compressible. than .5 seconds. GSV measures.994 x .937 cm. LT PerV is compressible. Chronic vein wall thickening is noted in the Pop V is compressible with reflux upon GSV. augmentation. ASV at the groin is incompetent for greater S-F Junction is competent. than .5 seconds. ASV measures .706 x .682 cm. GSV is incompetent throughout for greater SSV is incompetent for greater than .5 than .5 seconds. GSV measures .978 x 1.07 cm. seconds. SSV measures .431 x .441 cm. ASV at the mid thigh is incompetent for 3D Designer V 11 cm proximal to the medial greater than .5 seconds. ASV measures .246 malleolus is incompetent for greater than .5 x .249 cm. seconds. SSV is competent. Procedure Exam performed in department. The exam was diagnostic. <> Interpretation Summary Deep veins of the lower extremities are bilaterally patent and compressible segmentally. There is no evidence of deep vein thrombosis on either side. Valvular incompetence is noted in the right common femoral vein, femoral vein, and popliteal vein. Valvular incompetence is noted in the left popliteal vein. The greater saphenous veins appear bilaterally patent and compressible segmentally. The right sapheno-femoral junction is incompetent . The left sapheno-femoral junction is competent . Segmental valvular incompetence is noted within the greater saphenous veins bilaterally. The right small saphenous vein is patent and incompetent. The left small saphenous vein is patent and competent. An incompetent accessory saphenous vein is noted in each thigh. An incompetent timber hand vein is noted in the right calf, located 11 centimeters proximal to the right medial malleolus. Ordering Physician: Dominick Gonzalez Performed By: Richard Sharp RVT
--- NOTE | 2018-01-23 10:50 | LEAS_ITS ---
Arterial Study - Arterial Study Arterial Study: This is a 62-year-old male who presents with suspected peripheral arterial occlusive disease. He is brought to the noninvasive vascular laboratory at this time for the purpose of bilateral noninvasive lower extremity arterial assessment. Doppler signal assessment was used to evaluate the pulses at ankle level bilaterally. The posterior tibial and dorsalis pedis pulses were triphasic bilaterally. Segmental limb pressures were obtained bilaterally. The right ankle pressure, as determined by posterior tibial pulse, was measured at 176 mmHg. The right ankle pressure, as determined by dorsalis pedis pulse, was measured at 168 mmHg. The right digital pressure was measured at 148 mmHg. The left ankle pressure, as determined by posterior tibial pulse, was measured at 171 mmHg. the left ankle pressure, as determined by dorsalis pedis pulse, was measured at 173 mmHg. The left digital pressure was measured at 129 mmHg. Pulse?volume recordings were obtained at ankle and digital levels bilaterally. Waveform amplitudes appeared to be satisfactory bilaterally. Resting ankle?brachial indices were calculated bilaterally. The resting right ankle?brachial index was calculated to be 1.34. The resting left ankle?brachial index was calculated to be 1.32. Digital?brachial indices were calculated bilaterally. The right digital- brachial index was calculated to be 1.13. The left digital-brachial index was calculated to be 0.98. Impression: Based upon the findings of this resting noninvasive lower extremity arterial study, there is no evidence of significant atherosclerotic peripheral arterial occlusive disease in the lower extremities bilaterally. Triphasic waveforms were noted at ankle level bilaterally. Resting ankle?brachial indices were bilaterally normal. Digital-brachial indices were also normal bilaterally. In summary, this represents a normal resting noninvasive lower extremity arterial study bilaterally.
[2018-02-01 09:46] VITALS: BP 129/79; PULSE 71; RESP 18; TEMP 37.1
--- NOTE | 2018-02-01 10:16 | PCM.WC.HP ---
(1) Wound of right leg Status: Chronic Current Visit: Yes Qualifiers: Encounter type: subsequent encounter Code(s): S81.801A - Unspecified open wound, right lower leg, initial encounter (2) Chronic venous insufficiency Status: Chronic Current Visit: Yes Code(s): I87.2 - Venous insufficiency (chronic) (peripheral) (3) Venous hypertension of right lower extremity Status: Chronic Current Visit: Yes Code(s): I87.301 - Chronic venous hypertension (idiopathic) without complications of right lower extremity (4) Varicose veins with inflammation Status: Chronic Current Visit: Yes Code(s): I83.10 - Varicose veins of unspecified lower extremity with inflammation (5) Hypertension Status: Chronic Current Visit: No Code(s): I10 - Essential (primary) hypertension (6) Atrial fibrillation Status: Chronic Current Visit: No Code(s): I48.91 - Unspecified atrial fibrillation (7) Hyperlipidemia Status: Chronic Current Visit: No Code(s): E78.5 - Hyperlipidemia, unspecified (8) Swelling of right lower extremity Status: Chronic Current Visit: Yes Code(s): M79.89 - Other specified soft tissue disorders (9) Edema of right lower extremity Status: Chronic Current Visit: Yes Code(s): R60.0 - Localized edema (10) History of mitral valve replacement Status: Chronic Current Visit: No Code(s): Z95.2 - Presence of prosthetic heart valve (11) Hyperpigmentation Status: Chronic Current Visit: Yes Code(s): L81.9 - Disorder of pigmentation, unspecified History of Present Illness Chief Complaint: Traumatic wound of the right anterior tibial surface, having occurred approximately 3-4 weeks prior to presentation History of Wound: This is a 63-year-old male who presented with a traumatic wound of the right anterior tibial surface. The patient indicates that he traumatized the right anterior tibial surface approximately 3-4 weeks prior to presentation, resulting in an open wound. He has been self treating. Approximately 4-5 days prior to presentation, very profuse bleeding occurred from the site, prompting him to seek medical attention at the emergency department at [facility]. The patient was placed on Keflex 500 mg p.o. 4 times daily, and referred for further evaluation and management. 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 He denies a history of thrombophlebitis in the past. He has previously been treated for an ulceration on the right anterior tibial surface. He claims to have swelling in his right lower extremity, worse at the end of the day. He sleeps in a chair, with his legs in a dependent position. He has stigmata of chronic venous insufficiency, with large, bulging varicosities in his right lower extremity, as well as areas of hyperpigmentation on the right anterior tibial surface and near the right medial malleolus. Past Medical History Past Medical History: Chronic Problems Wound of right leg (Chronic) Chronic venous insufficiency (Chronic) Venous hypertension of right lower extremity (Chronic) Varicose veins with inflammation (Chronic) Hypertension (Chronic) Atrial fibrillation (Chronic) Hyperlipidemia (Chronic) Swelling of right lower extremity (Chronic) Edema of right lower extremity (Chronic) History of mitral valve replacement (Chronic) Hyperpigmentation (Chronic) Surgical History: - - Patient has previously undergone mitral valve replacement. Home Medications: Ambulatory Orders Medication Instructions Recorded Amoxicillin/Potassium Clav [Amox 1 each PO BID 06/20/14 Tr-K Clv 500-125 mg Tab] Losartan Potassium [Cozaar] 100 mg PO DAILY 06/20/14 - Family History Paternal - - The patient's father at the age of 74 with a history of chronic obstructive pulmonary disease. The patient's mother at age of 83 with a history of chronic obstructive pulmonary disease. Smoking Status: Never smoker Tobacco Use: Non-smoker Review of Systems Constitutional: Denies: Chills, Fever, Weight Change Eyes: Denies: Pain, Vision Change HEENT: Denies: Difficulty Hearing, Difficulty Swallowing, Sinus Congestion Cardiovascular: Denies: Chest Pain, Palpitations Respiratory: Denies: Cough, Shortness of Breath Gastrointestinal: Denies: Diarrhea, Nausea, Vomiting Genitourinary: Denies: Dysuria, Hematuria Endocrine: Denies: Heat/ Cold Intolerance, Polydipsia, Polyuria Hematologic/ Lymphatic: Denies: Easy Bruising, Easy Bleeding - Physical Exam Vital Signs Temp Pulse Resp BP 98.8 F 71 18 129/79 H 02/01/18 09:46 02/01/18 09:46 02/01/18 09:46 02/01/18 09:46 General: Alert, Oriented x3, Cooperative, No apparent distress, Well developed, Well nourished HEENT: Atraumatic, PERRLA, EOMI, Normocephalic Oral: Moist Mucosa Neck: No JVD Lungs: Normal air movement Abdomen: Non-Distended Extremities: No clubbing, No cyanosis, No edema, No Calf Tenderness, - - The swelling and edema in the patient's right lower extremity appears to be well controlled. It is minimal. Chronic skin changes persist, namely hyperpigmentation and lipodermatosclerosis in the gaiter area of the right lower extremity. The patient's venous ulceration, located on the right anterior tibial surface, persists, but is much smaller in size. It is generally pink and healthy in appearance, with a mild amount of bioburden. There is no sign of infection or cellulitis. Dimensions are documented elsewhere. A healed venous ulceration site is noted near the right medial malleolus. Wound Measurements and Assessment WC - Nurse 1 - General Ulcer Measurement Start: 02/01/18 09:46 Freq: Status: Active Protocol: Activity Type Activity Date Activity User E-Sign Co-Sign Detail Recorded Client Recorded Date Recorded By Document 02/01/18 09:46 DL [id number] 02/01/18 09:54 DL 02/01/18 09:46 Wound Center Nurse 1 [Ulcer Assessment] #3 right cook -Current Size (cm) - Length 2.1 -Current Size (cm) - Width 1.2 -Current Size (cm) - Depth 0.1 -Total Square Cm 2.52 -Photo Taken No -Exudate Amt Small (1-33%) -Exudate Type Serosanguineous -Wound Margin Flat & Intact -Granulation Amt Large (67-100%) -Granulation Quality Hyper- granulation Red -Necrosis Amt Small (1-33%) -Necrotic Tissue Type Adherent Slough -Structure Exposed N/A -Texture ([place]-wound Skin Appearance) Localized Edema Scarring -Moisture ([place]-wound Skin Appearance No Abnormality ) -Color ([place]-wound Skin Appearance) Hemosiderin Staining -Temperature ([place]-wound Skin No Abnormality Appearance) (Pt Warm) -Ulcer Cleansing Rinsed/ Irrigated with Saline -Foul Odor after Cleansing No -Anesthetic Used 4% Lidocaine Solution [Edema Assessment] -Right Calf (cm) 40.5 -Right Ankle (cm) 23.5 WC - Nurse 2 - General Ulcer CM Notes Start: 02/01/18 09:46 Freq: Status: Active Protocol: Activity Type Activity Date Activity User E-Sign Co-Sign Detail Recorded Client Recorded Date Recorded By Document 02/01/18 10:10 BRENDEN [id number] 02/01/18 10:11 BRENDEN 02/01/18 10:10 Wound Center Nurse 2 [Procedure/Treatment] #3 right cook -Time 10:10 -Correct Patient Yes -Correct Side, Site, Position Yes -Correct Procedure Yes -Procedure Performed Yes -Type of Procedure Debridement -Clinical Debridement Subcutaneous -Post Debridement Size (cm) - Length 2.2 -Post Debridement Size (cm) - Width 1.2 -Post Debridement Size (cm) - Depth 0.1 -Total Square Cm 2.64 -Wound/Ulcer Outcome Not Healed -Ulcer Cleansing Rinsed/ Irrigated with Saline -Foul Odor after Cleansing No -Bioengineered Tissue No -Topical Lidocaine (%) 4 -Lidocaine (ml) 5 -Bleeding Controlled with NA -Treatment Response Procedure Tolerated Well [See Physician Procedure note for Specifics] Pain Scale: 0-10 Numeric [Pain] -Is Patient Pain Free? Yes Musculoskeletal: No Muscle Wasting Neurological: Cranial nerves II-XII grossly intact, Neuro grossly intact Psych/Mental Status: Normal Affect, Appropriate, Alert and oriented to time, place, person, mood and affect Debridement Note Post-Debridement Measurements/Treatment WC - Nurse 2 - General Ulcer CM Notes Start: 02/01/18 09:46 Freq: Status: Active Protocol: Activity Type Activity Date Activity User E-Sign Co-Sign Detail Recorded Client Recorded Date Recorded By Document 02/01/18 10:10 BRENDEN [id number] 02/01/18 10:11 02/01/18 10:10 Wound Center Nurse 2 #3 right cook -Time 10:10 -Correct Patient Yes -Correct Side, Site, Position Yes -Correct Procedure Yes -Procedure Performed Yes -Type of Procedure Debridement -Clinical Debridement Subcutaneous -Post Debridement Size (cm) - Length 2.2 -Post Debridement Size (cm) - Width 1.2 -Post Debridement Size (cm) - Depth 0.1 -Total Square Cm 2.64 -Wound/Ulcer Outcome Not Healed -Ulcer Cleansing Rinsed/ Irrigated with Saline -Foul Odor after Cleansing No -Bioengineered Tissue No -Topical Lidocaine (%) 4 -Lidocaine (ml) 5 -Bleeding Controlled with NA -Treatment Response Procedure Tolerated Well Pain Scale: 0-10 Numeric Is Patient Pain Free? Yes Laterality: Right - Anterior tibial surface Type of Debridement: Excisional debridement Anesthesia Used: 5% Lidocaine Gel Depth: Down to and including healthy tissue, in the subcutaneous layer Percentage of wound debrided: 100 Instrument Used: 3mm curette Severity: Fat Layer Exposed Amount of bleeding with debridement: Mild Bleeding Controlled with: Compression and gauze Patient tolerated procedure well Assessment/Plan Active Problems Wound of right leg (Chronic) Chronic venous insufficiency (Chronic) Venous hypertension of right lower extremity (Chronic) Varicose veins with inflammation (Chronic) Swelling of right lower extremity (Chronic) Edema of right lower extremity (Chronic) Hyperpigmentation (Chronic) Assessment: This is a 63-year-old male with stigmata of chronic venous disease. He presents with a wound on the right anterior tibial surface, which appears to be related to recent trauma. Physical examination reveals stigmata of chronic venous insufficiency and venous hypertension. Recent arterial study suggests relatively normal arterial status in the lower extremities bilaterally. A venous duplex examination reveals incompetence of the right great saphenous vein, the right small saphenous vein, the right accessory saphenous vein, and a staff development coordinator located 11 cm proximal to the right medial malleolus. The patient has undergone laboratory studies on 01/04/2018, the results of which have been reviewed. Are as follows: Glucose 87, BUN 16, creatinine 0.98, total protein 7.7, albumin 3.7, calcium 8.7, AST 29, alkaline phosphatase 72, ALT 33, total bilirubin 0.80, sodium 139, potassium 4.6, chloride 104, serum prealbumin 23.9, white blood count 6.8, hemoglobin 14.0, hematocrit 41.7, platelets 199,000. Plan: Conservative treatment measures are to be continued. Leg elevation has been recommended. The patient indicates that he sleeps in an upright position, and the practice which has been discouraged. The patient has been advised to sleep on a flat mattress, with legs level with his heart. He has been encouraged to elevate his lower extremities as much as possible, even during daytime hours. His legs are to be elevated to heart level, or higher. Prolonged idle sitting has been discouraged. Activity has been encouraged. The patient's current weight appears to be reasonable. Compression is to be continued by means of graduated compression stockings of 20-30 mmHg compression, which the patient has now obtained, and is wearing daily. The patient may ultimately be a candidate for endovenous ablation of the incompetent superficial veins in the right lower extremity. We are to continue the use of Ashley topically. Because of the recent bleeding episode, we will use wound veil or Adaptic adjacent to the wound with each dressing change. If bleeding is to occur from the site again, patient has been advised to apply compression and to elevate his leg above heart level. Patient will return in 1 weeks for reassessment. Influenza vaccine was not administered today. The patient is not a smoker. The patient weighs 220 pounds. He stands 6 feet 1 inch tall. His BMI is 28.6. His places him in an overweight category. Mild weight loss has been recommended, with collaboration from his primary care physician.
[2018-02-08 08:24] VITALS: BP 152/82; PULSE 64; RESP 16; TEMP 36.2
--- NOTE | 2018-02-08 09:35 | PCM.WC.HP ---
(1) Wound of right leg Status: Chronic Current Visit: Yes Qualifiers: Encounter type: subsequent encounter Code(s): S81.801A - Unspecified open wound, right lower leg, initial encounter (2) Chronic venous insufficiency Status: Chronic Current Visit: Yes Code(s): I87.2 - Venous insufficiency (chronic) (peripheral) (3) Venous hypertension of right lower extremity Status: Chronic Current Visit: Yes Code(s): I87.301 - Chronic venous hypertension (idiopathic) without complications of right lower extremity (4) Varicose veins with inflammation Status: Chronic Current Visit: Yes Code(s): I83.10 - Varicose veins of unspecified lower extremity with inflammation (5) Hypertension Status: Chronic Current Visit: No Code(s): I10 - Essential (primary) hypertension (6) Atrial fibrillation Status: Chronic Current Visit: No Code(s): I48.91 - Unspecified atrial fibrillation (7) Hyperlipidemia Status: Chronic Current Visit: No Code(s): E78.5 - Hyperlipidemia, unspecified (8) Swelling of right lower extremity Status: Chronic Current Visit: Yes Code(s): M79.89 - Other specified soft tissue disorders (9) Edema of right lower extremity Status: Chronic Current Visit: Yes Code(s): R60.0 - Localized edema (10) History of mitral valve replacement Status: Chronic Current Visit: No Code(s): Z95.2 - Presence of prosthetic heart valve (11) Hyperpigmentation Status: Chronic Current Visit: Yes Code(s): L81.9 - Disorder of pigmentation, unspecified History of Present Illness Chief Complaint: Traumatic wound of the right anterior tibial surface, having occurred approximately 3-4 weeks prior to presentation History of Wound: This is a 63-year-old male who presented with a traumatic wound of the right anterior tibial surface. The patient indicates that he traumatized the right anterior tibial surface approximately 3-4 weeks prior to presentation, resulting in an open wound. He has been self treating. Approximately 4-5 days prior to presentation, very profuse bleeding occurred from the site, prompting him to seek medical attention at the emergency department at [facility]. The patient was placed on Keflex 500 mg p.o. 4 times daily, and referred for further evaluation and management. 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 He denies a history of thrombophlebitis in the past. He has previously been treated for an ulceration on the right anterior tibial surface. He claims to have swelling in his right lower extremity, worse at the end of the day. He sleeps in a chair, with his legs in a dependent position. He has stigmata of chronic venous insufficiency, with large, bulging varicosities in his right lower extremity, as well as areas of hyperpigmentation on the right anterior tibial surface and near the right medial malleolus. There is a healed venous ulceration near the right medial malleolus. Past Medical History Past Medical History: Chronic Problems Wound of right leg (Chronic) Chronic venous insufficiency (Chronic) Venous hypertension of right lower extremity (Chronic) Varicose veins with inflammation (Chronic) Hypertension (Chronic) Atrial fibrillation (Chronic) Hyperlipidemia (Chronic) Swelling of right lower extremity (Chronic) Edema of right lower extremity (Chronic) History of mitral valve replacement (Chronic) Hyperpigmentation (Chronic) Surgical History: - - Patient has previously undergone mitral valve replacement. Home Medications: Ambulatory Orders Medication Instructions Recorded Amoxicillin/Potassium Clav [Amox 1 each PO BID 06/20/14 Tr-K Clv 500-125 mg Tab] Losartan Potassium [Cozaar] 100 mg PO DAILY 06/20/14 - Family History Paternal - - The patient's father at the age of 74 with a history of chronic obstructive pulmonary disease. The patient's mother at age of 83 with a history of chronic obstructive pulmonary disease. Smoking Status: Never smoker Tobacco Use: Non-smoker Review of Systems Constitutional: Denies: Chills, Fever, Weight Change Eyes: Denies: Pain, Vision Change HEENT: Denies: Difficulty Hearing, Difficulty Swallowing, Sinus Congestion Cardiovascular: Denies: Chest Pain, Palpitations Respiratory: Denies: Cough, Shortness of Breath Gastrointestinal: Denies: Diarrhea, Nausea, Vomiting Genitourinary: Denies: Dysuria, Hematuria Endocrine: Denies: Heat/ Cold Intolerance, Polydipsia, Polyuria Hematologic/ Lymphatic: Denies: Easy Bruising, Easy Bleeding - Physical Exam Vital Signs Temp Pulse Resp BP 97.1 F L 64 16 152/82 H 02/08/18 08:24 02/08/18 08:24 02/08/18 08:24 02/08/18 08:24 General: Alert, Oriented x3, Cooperative, No apparent distress, Well developed, Well nourished HEENT: Atraumatic, PERRLA, EOMI, Normocephalic Oral: Moist Mucosa Neck: No JVD Lungs: Normal air movement Abdomen: Non-Distended Extremities: No clubbing, No cyanosis, No edema, No Calf Tenderness, - - There is no significant swelling or edema in the lower extremities. There is no sign of infection or cellulitis. Chronic hyperpigmentation is noted near the right medial malleolus and on the anterior tibial surface. The ulceration/wound on the right anterior tibial surfaces generally pink and healthy in appearance, with only a small amount of bioburden. Dimensions are documented elsewhere, and are significantly smaller than noted previously. There has been significant improvement. Skin: No rashes Wound Measurements and Assessment WC - Nurse 1 - General Ulcer Measurement Start: 02/01/18 09:46 Freq: Status: Active Protocol: Activity Type Activity Date Activity User E-Sign Co-Sign Detail Recorded Client Recorded Date Recorded By Document 02/08/18 08:24 [facility] [id number] 02/08/18 08:30 [facility] 02/08/18 08:24 Wound Center Nurse 1 [Ulcer Assessment] #3 right cook -Combined with other wound No -Current Size (cm) - Length 1.5 -Current Size (cm) - Width 1.0 -Current Size (cm) - Depth 0.1 -Total Square Cm 1.50 -Date of Last Picture (Recall this 02/08/18 field) -Photo Taken Yes -Epithelialization Small 1-33% -Tunneling No -Undermining/Tunneling No -Circular Undermining No -Exudate Amt Small (1-33%) -Exudate Type Serosanguineous -Wound Margin Distinct, Outline Attached -Granulation Amt Large (67-100%) -Granulation Quality Red -Slough/Fibrin Yes -Necrosis Amt Small (1-33%) -Necrotic Tissue Type Adherent Slough -Texture (Yaquelin-wound Skin Appearance) Scarring -Moisture ([place]-wound Skin Appearance Dry/Scaly ) -Color ([place]-wound Skin Appearance) Hemosiderin Staining -Temperature ([place]-wound Skin No Abnormality Appearance) (Pt Warm) -Tenderness on Palpation ([place]-wound No Skin Appearance) -Ulcer Cleansing Rinsed/ Irrigated with Saline -Foul Odor after Cleansing No -Anesthetic Used 5% Lidocaine Gel [Edema Assessment] -Lower Limb Edema Present Yes -Right Calf (cm) 42.3 -Right Ankle (cm) 25.6 - Nurse 2 - General Ulcer CM Notes Start: 02/01/18 09:46 Freq: Status: Active Protocol: Activity Type Activity Date Activity User E-Sign Co-Sign Detail Recorded Client Recorded Date Recorded By Document 02/08/18 09:17 [id number] 02/08/18 09:27 02/08/18 09:17 Wound Center Nurse 2 [Procedure/Treatment] #3 right cook -Time 09:17 -Correct Patient Yes -Correct Side, Site, Position Yes -Correct Procedure Yes -Procedure Performed Yes -Type of Procedure Debridement -Clinical Debridement Subcutaneous -Post Debridement Size (cm) - Length 1.5 -Post Debridement Size (cm) - Width 1.1 -Post Debridement Size (cm) - Depth 0.1 -Total Square Cm 1.65 -Wound/Ulcer Outcome Not Healed -Ulcer Cleansing Rinsed/ Irrigated with Saline -Foul Odor after Cleansing No -Bioengineered Tissue No -Topical Lidocaine (%) 5 -Bleeding Controlled with NA -Treatment Response Procedure Tolerated Well [See Physician Procedure note for Specifics] Pain Scale: 0-10 Numeric [Pain] -Is Patient Pain Free? Yes Musculoskeletal: No Muscle Wasting Neurological: Cranial nerves II-XII grossly intact, Neuro grossly intact Psych/Mental Status: Normal Affect, Appropriate, Alert and oriented to time, place, person, mood and affect Debridement Note Post-Debridement Measurements/Treatment - Nurse 2 - General Ulcer CM Notes Start: 02/01/18 09:46 Freq: Status: Active Protocol: Activity Type Activity Date Activity User E-Sign Co-Sign Detail Recorded Client Recorded Date Recorded By Document 02/01/18 10:10 [id number] 02/01/18 10:11 JS Document 02/08/18 09:17 [id number] 02/08/18 09:27 02/01/18 02/08/18 10:10 09:17 Wound Center Nurse 2 #3 right cook -Time 10:10 09:17 -Correct Patient Yes Yes -Correct Side, Site, Position Yes Yes -Correct Procedure Yes Yes -Procedure Performed Yes Yes -Type of Procedure Debridement Debridement -Clinical Debridement Subcutaneous Subcutaneous -Post Debridement Size (cm) - Length 2.2 1.5 -Post Debridement Size (cm) - Width 1.2 1.1 -Post Debridement Size (cm) - Depth 0.1 0.1 -Total Square Cm 2.64 1.65 -Wound/Ulcer Outcome Not Healed Not Healed -Ulcer Cleansing Rinsed/ Rinsed/ Irrigated with Irrigated with Saline Saline -Foul Odor after Cleansing No No -Bioengineered Tissue No No -Topical Lidocaine (%) 4 5 -Lidocaine (ml) 5 -Bleeding Controlled with NA NA -Treatment Response Procedure Procedure Tolerated Well Tolerated Well Pain Scale: 0-10 Numeric Is Patient Pain Free? Yes Yes Laterality: Right - Anterior tibial surface Type of Debridement: Excisional debridement Anesthesia Used: 5% Lidocaine Gel Depth: Down to and including healthy tissue, in the subcutaneous layer Percentage of wound debrided: 100 Instrument Used: 7mm curette Severity: Fat Layer Exposed Amount of bleeding with debridement: Mild Bleeding Controlled with: Compression and gauze Patient tolerated procedure well Assessment/Plan Active Problems Wound of right leg (Chronic) Chronic venous insufficiency (Chronic) Venous hypertension of right lower extremity (Chronic) Varicose veins with inflammation (Chronic) Swelling of right lower extremity (Chronic) Edema of right lower extremity (Chronic) Hyperpigmentation (Chronic) Assessment: This is a 63-year-old male with stigmata of chronic venous disease. He presents with a wound on the right anterior tibial surface, which appears to be related to recent trauma. Physical examination reveals stigmata of chronic venous insufficiency and venous hypertension. Recent arterial study suggests relatively normal arterial status in the lower extremities bilaterally. A venous duplex examination reveals incompetence of the right great saphenous vein, the right small saphenous vein, the right accessory saphenous vein, and a blunger loader located 11 cm proximal to the right medial malleolus. The patient has undergone laboratory studies on 01/04/2018, the results of which have been reviewed. Are as follows: Glucose 87, BUN 16, creatinine 0.98, total protein 7.7, albumin 3.7, calcium 8.7, AST 29, alkaline phosphatase 72, ALT 33, total bilirubin 0.80, sodium 139, potassium 4.6, chloride 104, serum prealbumin 23.9, white blood count 6.8, hemoglobin 14.0, hematocrit 41.7, platelets 199,000. Plan: Conservative treatment measures are to be continued. Leg elevation has been recommended. The patient indicates that he sleeps in an upright position, and the practice which has been discouraged. The patient has been advised to sleep on a flat mattress, with legs level with his heart. He has been encouraged to elevate his lower extremities as much as possible, even during daytime hours. His legs are to be elevated to heart level, or higher. Prolonged idle sitting has been discouraged. Activity has been encouraged. The patient's current weight appears to be reasonable. Compression is to be continued by means of graduated compression stockings of 20-30 mmHg compression, which the patient has now obtained, and is wearing daily. The patient may ultimately be a candidate for endovenous ablation of the incompetent superficial veins in the right lower extremity. The nature of the procedure has been discussed with the patient in detail, including indications and risks, expectations, etc. We are to continue the use of Ashley topically. Because of the recent bleeding episode, we will use Wound Veil or Adaptic adjacent to the wound with each dressing change. If bleeding is to occur from the site again, patient has been advised to apply compression and to elevate his leg above heart level. Patient will return in 1 weeks for reassessment. Influenza vaccine was not administered today. The patient is not a smoker. The patient weighs 220 pounds. He stands 6 feet 1 inch tall. His BMI is 28.6. His places him in an overweight category. Mild weight loss has been recommended, with collaboration from his primary care physician.
--- NOTE | 2018-02-08 09:40 | HP.PCM_ITS ---
(1) Wound of right leg Status: Chronic Current Visit: Yes Qualifiers: Encounter type: subsequent encounter Code(s): S81.801A - Unspecified open wound, right lower leg, initial encounter (2) Chronic venous insufficiency Status: Chronic Current Visit: Yes Code(s): I87.2 - Venous insufficiency (chronic) (peripheral) (3) Venous hypertension of right lower extremity Status: Chronic Current Visit: Yes Code(s): I87.301 - Chronic venous hypertension (idiopathic) without complications of right lower extremity (4) Varicose veins with inflammation Status: Chronic Current Visit: Yes Code(s): I83.10 - Varicose veins of unspecified lower extremity with inflammation (5) Hypertension Status: Chronic Current Visit: No Code(s): I10 - Essential (primary) hypertension (6) Atrial fibrillation Status: Chronic Current Visit: No Code(s): I48.91 - Unspecified atrial fibrillation (7) Hyperlipidemia Status: Chronic Current Visit: No Code(s): E78.5 - Hyperlipidemia, unspecified (8) Swelling of right lower extremity Status: Chronic Current Visit: Yes Code(s): M79.89 - Other specified soft tissue disorders (9) Edema of right lower extremity Status: Chronic Current Visit: Yes Code(s): R60.0 - Localized edema (10) History of mitral valve replacement Status: Chronic Current Visit: No Code(s): Z95.2 - Presence of prosthetic heart valve (11) Hyperpigmentation Status: Chronic Current Visit: Yes Code(s): L81.9 - Disorder of pigmentation, unspecified History of Present Illness Chief Complaint: Traumatic wound of the right anterior tibial surface, having occurred approximately 3-4 weeks prior to presentation History of Wound: This is a 63-year-old male who presented with a traumatic wound of the right anterior tibial surface. The patient indicates that he traumatized the right anterior tibial surface approximately 3-4 weeks prior to presentation, resulting in an open wound. He has been self treating. Approximately 4-5 days prior to presentation, very profuse bleeding occurred from the site, prompting him to seek medical attention at the emergency department at [facility]. The patient was placed on Keflex 500 mg p.o. 4 times daily, and referred for further evaluation and management. 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 He denies a history of thrombophlebitis in the past. He has previously been treated for an ulceration on the right anterior tibial surface. He claims to have swelling in his right lower extremity, worse at the end of the day. He sleeps in a chair, with his legs in a dependent position. He has stigmata of chronic venous insufficiency, with large, bulging varicosities in his right lower extremity, as well as areas of hyperpigmentation on the right anterior tibial surface and near the right medial malleolus. There is a healed venous ulceration near the right medial malleolus. Past Medical History Past Medical History: Chronic Problems Wound of right leg (Chronic) Chronic venous insufficiency (Chronic) Venous hypertension of right lower extremity (Chronic) Varicose veins with inflammation (Chronic) Hypertension (Chronic) Atrial fibrillation (Chronic) Hyperlipidemia (Chronic) Swelling of right lower extremity (Chronic) Edema of right lower extremity (Chronic) History of mitral valve replacement (Chronic) Hyperpigmentation (Chronic) Surgical History: - - Patient has previously undergone mitral valve replacement. Home Medications: Ambulatory Orders Medication Instructions Recorded Amoxicillin/Potassium Clav [Amox 1 each PO BID 06/20/14 Tr-K Clv 500-125 mg Tab] Losartan Potassium [Cozaar] 100 mg PO DAILY 06/20/14 - Family History Paternal - - The patient's father at the age of 74 with a history of chronic obstructive pulmonary disease. The patient's mother at age of 83 with a history of chronic obstructive pulmonary disease. Smoking Status: Never smoker Tobacco Use: Non-smoker Review of Systems Constitutional: Denies: Chills, Fever, Weight Change Eyes: Denies: Pain, Vision Change HEENT: Denies: Difficulty Hearing, Difficulty Swallowing, Sinus Congestion Cardiovascular: Denies: Chest Pain, Palpitations Respiratory: Denies: Cough, Shortness of Breath Gastrointestinal: Denies: Diarrhea, Nausea, Vomiting Genitourinary: Denies: Dysuria, Hematuria Endocrine: Denies: Heat/ Cold Intolerance, Polydipsia, Polyuria Hematologic/ Lymphatic: Denies: Easy Bruising, Easy Bleeding - Physical Exam Vital Signs Temp Pulse Resp BP 97.1 F L 64 16 152/82 H 02/08/18 08:24 02/08/18 08:24 02/08/18 08:24 02/08/18 08:24 General: Alert, Oriented x3, Cooperative, No apparent distress, Well developed, Well nourished HEENT: Atraumatic, PERRLA, EOMI, Normocephalic Oral: Moist Mucosa Neck: No JVD Lungs: Normal air movement Abdomen: Non-Distended Extremities: No clubbing, No cyanosis, No edema, No Calf Tenderness, - - There is no significant swelling or edema in the lower extremities. There is no sign of infection or cellulitis. Chronic hyperpigmentation is noted near the right medial malleolus and on the anterior tibial surface. The ulceration/wound on the right anterior tibial surfaces generally pink and healthy in appearance, with only a small amount of bioburden. Dimensions are documented elsewhere, and are significantly smaller than noted previously. There has been significant improvement. Skin: No rashes Wound Measurements and Assessment WC - Nurse 1 - General Ulcer Measurement Start: 02/01/18 09:46 Freq: Status: Active Protocol: Activity Type Activity Date Activity User E-Sign Co-Sign Detail Recorded Client Recorded Date Recorded By Document 02/08/18 08:24 [facility] [id number] 02/08/18 08:30 [facility] 02/08/18 08:24 Wound Center Nurse 1 [Ulcer Assessment] #3 right cook -Combined with other wound No -Current Size (cm) - Length 1.5 -Current Size (cm) - Width 1.0 -Current Size (cm) - Depth 0.1 -Total Square Cm 1.50 -Date of Last Picture (Recall this 02/08/18 field) -Photo Taken Yes -Epithelialization Small 1-33% -Tunneling No -Undermining/Tunneling No -Circular Undermining No -Exudate Amt Small (1-33%) -Exudate Type Serosanguineous -Wound Margin Distinct, Outline Attached -Granulation Amt Large (67-100%) -Granulation Quality Red -Slough/Fibrin Yes -Necrosis Amt Small (1-33%) -Necrotic Tissue Type Adherent Slough -Texture (Yaquelin-wound Skin Appearance) Scarring -Moisture ([place]elin-wound Skin Appearance Dry/Scaly ) -Color ([place]elin-wound Skin Appearance) Hemosiderin Staining -Temperature ([place]-wound Skin No Abnormality Appearance) (Pt Warm) -Tenderness on Palpation ([place]-wound No Skin Appearance) -Ulcer Cleansing Rinsed/ Irrigated with Saline -Foul Odor after Cleansing No -Anesthetic Used 5% Lidocaine Gel [Edema Assessment] -Lower Limb Edema Present Yes -Right Calf (cm) 42.3 -Right Ankle (cm) 25.6 - Nurse 2 - General Ulcer CM Notes Start: 02/01/18 09:46 Freq: Status: Active Protocol: Activity Type Activity Date Activity User E-Sign Co-Sign Detail Recorded Client Recorded Date Recorded By Document 02/08/18 09:17 [id number] 02/08/18 09:27 02/08/18 09:17 Wound Center Nurse 2 [Procedure/Treatment] #3 right cook -Time 09:17 -Correct Patient Yes -Correct Side, Site, Position Yes -Correct Procedure Yes -Procedure Performed Yes -Type of Procedure Debridement -Clinical Debridement Subcutaneous -Post Debridement Size (cm) - Length 1.5 -Post Debridement Size (cm) - Width 1.1 -Post Debridement Size (cm) - Depth 0.1 -Total Square Cm 1.65 -Wound/Ulcer Outcome Not Healed -Ulcer Cleansing Rinsed/ Irrigated with Saline -Foul Odor after Cleansing No -Bioengineered Tissue No -Topical Lidocaine (%) 5 -Bleeding Controlled with NA -Treatment Response Procedure Tolerated Well [See Physician Procedure note for Specifics] Pain Scale: 0-10 Numeric [Pain] -Is Patient Pain Free? Yes Musculoskeletal: No Muscle Wasting Neurological: Cranial nerves II-XII grossly intact, Neuro grossly intact Psych/Mental Status: Normal Affect, Appropriate, Alert and oriented to time, place, person, mood and affect Debridement Note Post-Debridement Measurements/Treatment - Nurse 2 - General Ulcer CM Notes Start: 02/01/18 09:46 Freq: Status: Active Protocol: Activity Type Activity Date Activity User E-Sign Co-Sign Detail Recorded Client Recorded Date Recorded By Document 02/01/18 10:10 [id number] 02/01/18 10:11 JS Document 02/08/18 09:17 [id number] 02/08/18 09:27 02/01/18 02/08/18 10:10 09:17 Wound Center Nurse 2 #3 right cook -Time 10:10 09:17 -Correct Patient Yes Yes -Correct Side, Site, Position Yes Yes -Correct Procedure Yes Yes -Procedure Performed Yes Yes -Type of Procedure Debridement Debridement -Clinical Debridement Subcutaneous Subcutaneous -Post Debridement Size (cm) - Length 2.2 1.5 -Post Debridement Size (cm) - Width 1.2 1.1 -Post Debridement Size (cm) - Depth 0.1 0.1 -Total Square Cm 2.64 1.65 -Wound/Ulcer Outcome Not Healed Not Healed -Ulcer Cleansing Rinsed/ Rinsed/ Irrigated with Irrigated with Saline Saline -Foul Odor after Cleansing No No -Bioengineered Tissue No No -Topical Lidocaine (%) 4 5 -Lidocaine (ml) 5 -Bleeding Controlled with NA NA -Treatment Response Procedure Procedure Tolerated Well Tolerated Well Pain Scale: 0-10 Numeric Is Patient Pain Free? Yes Yes Laterality: Right - Anterior tibial surface Type of Debridement: Excisional debridement Anesthesia Used: 5% Lidocaine Gel Depth: Down to and including healthy tissue, in the subcutaneous layer Percentage of wound debrided: 100 Instrument Used: 7mm curette Severity: Fat Layer Exposed Amount of bleeding with debridement: Mild Bleeding Controlled with: Compression and gauze Patient tolerated procedure well Assessment/Plan Active Problems Wound of right leg (Chronic) Chronic venous insufficiency (Chronic) Venous hypertension of right lower extremity (Chronic) Varicose veins with inflammation (Chronic) Swelling of right lower extremity (Chronic) Edema of right lower extremity (Chronic) Hyperpigmentation (Chronic) Assessment: This is a 63-year-old male with stigmata of chronic venous disease. He presents with a wound on the right anterior tibial surface, which appears to be related to recent trauma. Physical examination reveals stigmata of chronic venous insufficiency and venous hypertension. Recent arterial study suggests relatively normal arterial status in the lower extremities bilaterally. A venous duplex examination reveals incompetence of the right great saphenous vein, the right small saphenous vein, the right accessory saphenous vein, and a development administrator located 11 cm proximal to the right medial malleolus. The patient has unde rgone laboratory studies on 01/04/2018, the results of which have been reviewed. Are as follows: Glucose 87, BUN 16, creatinine 0.98, total protein 7.7, albumin 3.7, calcium 8.7, AST 29, alkaline phosphatase 72, ALT 33, total bilirubin 0.80, sodium 139, potassium 4.6, chloride 104, serum prealbumin 23.9, white blood count 6.8, hemoglobin 14.0, hematocrit 41.7, platelets 199,000. Plan: Conservative treatment measures are to be continued. Leg elevation has been recommended. The patient indicates that he sleeps in an upright position, and the practice which has been discouraged. The patient has been advised to sleep on a flat mattress, with legs level with his heart. He has been encouraged to elevate his lower extremities as much as possible, even during daytime hours. His legs are to be elevated to heart level, or higher. Prolonged idle sitting has been discouraged. Activity has been encouraged. The patient's current weight appears to be reasonable. Compression is to be continued by means of graduated compression stockings of 20-30 mmHg compression, which the patient has now obtained, and is wearing daily. The patient may ultimately be a candidate for endovenous ablation of the incompetent superficial veins in the right lower extremity. The nature of the procedure has been discussed with the patient in detail, including indications and risks, expectations, etc. We are to continue the use of Ashley topically. Because of the recent bleeding episode, we will use Wound Veil or Adaptic adjacent to the wound with each dressing change. If bleeding is to occur from the site again, patient has been advised to apply compression and to elevate his leg above heart level. Patient will return in 1 weeks for reassessment. Influenza vaccine wa s not administered today. The patient is not a smoker. The patient weighs 220 pounds. He stands 6 feet 1 inch tall. His BMI is 28.6. His places him in an overweight category. Mild weight loss has been recommended, with collaboration from his primary care physician.
[2018-02-15 08:27] VITALS: BP 130/67; PULSE 86; RESP 18; TEMP 36.2
--- NOTE | 2018-02-15 09:41 | PCM.WC.HP ---
(1) Wound of right leg Status: Chronic Current Visit: Yes Qualifiers: Encounter type: subsequent encounter Code(s): S81.801A - Unspecified open wound, right lower leg, initial encounter (2) Chronic venous insufficiency Status: Chronic Current Visit: Yes Code(s): I87.2 - Venous insufficiency (chronic) (peripheral) (3) Venous hypertension of right lower extremity Status: Chronic Current Visit: Yes Code(s): I87.301 - Chronic venous hypertension (idiopathic) without complications of right lower extremity (4) Varicose veins with inflammation Status: Chronic Current Visit: Yes Code(s): I83.10 - Varicose veins of unspecified lower extremity with inflammation (5) Hypertension Status: Chronic Current Visit: No Code(s): I10 - Essential (primary) hypertension (6) Atrial fibrillation Status: Chronic Current Visit: No Code(s): I48.91 - Unspecified atrial fibrillation (7) Hyperlipidemia Status: Chronic Current Visit: No Code(s): E78.5 - Hyperlipidemia, unspecified (8) Swelling of right lower extremity Status: Chronic Current Visit: Yes Code(s): M79.89 - Other specified soft tissue disorders (9) Edema of right lower extremity Status: Chronic Current Visit: Yes Code(s): R60.0 - Localized edema (10) History of mitral valve replacement Status: Chronic Current Visit: No Code(s): Z95.2 - Presence of prosthetic heart valve (11) Hyperpigmentation Status: Chronic Current Visit: Yes Code(s): L81.9 - Disorder of pigmentation, unspecified (12) Venous hypertension, chronic, with ulcer and inflammation Status: Chronic Current Visit: Yes Qualifiers: Laterality: right Qualified Code(s): I87.331 - Chronic venous hypertension (idiopathic) with ulcer and inflammation of right lower extremity; L97.919 - Non-pressure chronic ulcer of unspecified part of right lower leg with unspecified severity Code(s): I87.339 - Chronic venous hypertension (idiopathic) with ulcer and inflammation of unspecified lower extremity; L97.909 - Non-pressure chronic ulcer of unspecified part of unspecified lower leg with unspecified severity (13) Venous stasis ulcer Status: Chronic Current Visit: Yes Qualifiers: Venous stasis ulcer site: calf Varicose vein presence: without varicose veins Laterality: right Non-pressure ulcer stage: with fat layer exposed Qualified Code(s): I87.2 - Venous insufficiency (chronic) (peripheral); L97.212 - Non-pressure chronic ulcer of right calf with fat layer exposed Code(s): I83.009 - Varicose veins of unspecified lower extremity with ulcer of unspecified site; L97.909 - Non-pressure chronic ulcer of unspecified part of unspecified lower leg with unspecified severity History of Present Illness Chief Complaint: Traumatic wound of the right anterior tibial surface, having occurred approximately 3-4 weeks prior to presentation History of Wound: This is a 63-year-old male who presented with a traumatic wound of the right anterior tibial surface. The patient indicates that he traumatized the right anterior tibial surface approximately 3-4 weeks prior to presentation, resulting in an open wound. He has been self treating. Approximately 4-5 days prior to presentation, very profuse bleeding occurred from the site, prompting him to seek medical attention at the emergency department at [facility]. The patient was placed on Keflex 500 mg p.o. 4 times daily, and referred for further evaluation and management. 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 He denies a history of thrombophlebitis in the past. He has previously been treated for an ulceration on the right anterior tibial surface. He claims to have swelling in his right lower extremity, worse at the end of the day. He sleeps in a chair, with his legs in a dependent position. He has stigmata of chronic venous insufficiency, with large, bulging varicosities in his right lower extremity, as well as areas of hyperpigmentation on the right anterior tibial surface and near the right medial malleolus. There is a healed venous ulceration near the right medial malleolus. Past Medical History Past Medical History: Chronic Problems Wound of right leg (Chronic) Chronic venous insufficiency (Chronic) Venous hypertension of right lower extremity (Chronic) Varicose veins with inflammation (Chronic) Hypertension (Chronic) Atrial fibrillation (Chronic) Hyperlipidemia (Chronic) Swelling of right lower extremity (Chronic) Edema of right lower extremity (Chronic) History of mitral valve replacement (Chronic) Hyperpigmentation (Chronic) Venous hypertension, chronic, with ulcer and inflammation (Chronic) Venous stasis ulcer (Chronic) Surgical History: - - Patient has previously undergone mitral valve replacement. Home Medications: Ambulatory Orders Medication Instructions Recorded Amoxicillin/Potassium Clav [Amox 1 each PO BID 06/20/14 Tr-K Clv 500-125 mg Tab] Losartan Potassium [Cozaar] 100 mg PO DAILY 06/20/14 - Family History Paternal - - The patient's father at the age of 74 with a history of chronic obstructive pulmonary disease. The patient's mother at age of 83 with a history of chronic obstructive pulmonary disease. Smoking Status: Never smoker Tobacco Use: Non-smoker Review of Systems Constitutional: Denies: Chills, Fever, Weight Change Eyes: Denies: Pain, Vision Change HEENT: Denies: Difficulty Hearing, Difficulty Swallowing, Sinus Congestion Cardiovascular: Denies: Chest Pain, Palpitations Respiratory: Denies: Cough, Shortness of Breath Gastrointestinal: Denies: Diarrhea, Nausea, Vomiting Genitourinary: Denies: Dysuria, Hematuria Endocrine: Denies: Heat/ Cold Intolerance, Polydipsia, Polyuria Hematologic/ Lymphatic: Denies: Easy Bruising, Easy Bleeding - Physical Exam Vital Signs Temp Pulse Resp BP 97.1 F L 86 18 130/67 H 02/15/18 08:27 02/15/18 08:27 02/15/18 08:27 02/15/18 08:27 General: Alert, Oriented x3, Cooperative, No apparent distress, Well developed, Well nourished HEENT: Atraumatic, PERRLA, EOMI, Normocephalic Oral: Moist Mucosa Neck: No JVD Lungs: Normal air movement Abdomen: Non-Distended Extremities: No clubbing, No cyanosis, No edema, No Calf Tenderness, - - There is no significant swelling or edema in the patient's right lower extremity. The ulceration on the right anterior tibial surface persists, but is smaller in size. The base of the ulceration is pink and healthy in appearance, demonstrating active granulation tissue. There is a small amount of bioburden. There is no sign of infection or cellulitis. Dimensions are documented elsewhere. Chronic hyperpigmentation persists in the right gaiter area. Wound Measurements and Assessment WC - Nurse 1 - General Ulcer Measurement Start: 02/01/18 09:46 Freq: Status: Active Protocol: Activity Type Activity Date Activity User E-Sign Co-Sign Detail Recorded Client Recorded Date Recorded By Document 02/15/18 08:27 [id number] 02/15/18 08:37 02/15/18 08:27 Wound Center Nurse 1 [Ulcer Assessment] #3 right cook -Combined with other wound No -Current Size (cm) - Length 1.0 -Current Size (cm) - Width 1.0 -Current Size (cm) - Depth 0.1 -Total Square Cm 1.00 -Photo Taken No -Epithelialization Small 1-33% -Tunneling No -Undermining/Tunneling No -Circular Undermining No -Classification - Thickness Full Thickness without Exposed Support Structure -Exudate Amt Small (1-33%) -Exudate Type Serosanguineous -Wound Margin Distinct, Outline Attached -Granulation Amt Medium (34-66%) -Granulation Quality [place] -Slough/Fibrin Yes -Necrosis Amt Medium (34-66%) -Necrotic Tissue Type Adherent Slough -Structure Exposed Fascia Fat Layer Exposed -Texture ([place]-wound Skin Appearance) Assessed Friable Localized Edema Scarring -Moisture ([place]-wound Skin Appearance No Abnormality ) Assessed -Color ([place]-wound Skin Appearance) Assessed Erythema Hemosiderin Staining -Temperature ([place]-wound Skin No Abnormality Appearance) (Pt Warm) -Tenderness on Palpation ([place]-wound No Skin Appearance) -Ulcer Cleansing Rinsed/ Irrigated with Saline -Foul Odor after Cleansing No -Anesthetic Used 5% Lidocaine Gel [Edema Assessment] -Lower Limb Edema Present Yes -Right Calf (cm) 40.5 -Right Ankle (cm) 25.0 WC - Nurse 2 - General Ulcer CM Notes Start: 02/01/18 09:46 Freq: Status: Active Protocol: Activity Type Activity Date Activity User E-Sign Co-Sign Detail Recorded Client Recorded Date Recorded By Document 02/15/18 08:27 [id number] 02/15/18 08:37 02/15/18 08:27 Wound Center Nurse 2 [Procedure/Treatment] #3 right cook -Time 09:22 -Correct Patient Yes -Correct Side, Site, Position Yes -Correct Procedure Yes -Procedure Performed Yes -Type of Procedure Debridement -Clinical Debridement Subcutaneous -Post Debridement Size (cm) - Length 1.0 -Post Debridement Size (cm) - Width 0.9 -Post Debridement Size (cm) - Depth 0.1 -Total Square Cm 0.90 -Wound/Ulcer Outcome Not Healed -Ulcer Cleansing Rinsed/ Irrigated with Saline -Foul Odor after Cleansing No -Bioengineered Tissue No -Topical Lidocaine (%) 4 -Lidocaine (ml) 5 -Bleeding Controlled with NA Musculoskeletal: No Muscle Wasting Neurological: Cranial nerves II-XII grossly intact, Neuro grossly intact Psych/Mental Status: Normal Affect, Appropriate, Alert and oriented to time, place, person, mood and affect Debridement Note Post-Debridement Measurements/Treatment WC - Nurse 2 - General Ulcer CM Notes Start: 02/01/18 09:46 Freq: Status: Active Protocol: Activity Type Activity Date Activity User E-Sign Co-Sign Detail Recorded Client Recorded Date Recorded By Document 02/01/18 10:10 [id number] 02/01/18 10:11 JS Document 02/08/18 09:17 [email or web address] 02/08/18 09:27 JS Document 02/15/18 08:27 [id number] 02/15/18 08:37 02/01/18 02/08/18 02/15/18 10:10 09:17 08:27 Wound Center Nurse 2 #3 right cook -Time 10:10 09:17 09:22 -Correct Patient Yes Yes Yes -Correct Side, Site, Position Yes Yes Yes -Correct Procedure Yes Yes Yes -Procedure Performed Yes Yes Yes -Type of Procedure Debridement Debridement Debridement -Clinical Debridement Subcutaneous Subcutaneous Subcutaneous -Post Debridement Size (cm) - Length 2.2 1.5 1.0 -Post Debridement Size (cm) - Width 1.2 1.1 0.9 -Post Debridement Size (cm) - Depth 0.1 0.1 0.1 -Total Square Cm 2.64 1.65 0.90 -Wound/Ulcer Outcome Not Healed Not Healed Not Healed -Ulcer Cleansing Rinsed/ Rinsed/ Rinsed/ Irrigated with Irrigated with Irrigated with Saline Saline Saline -Foul Odor after Cleansing No No No -Bioengineered Tissue No No No -Topical Lidocaine (%) 4 5 4 -Lidocaine (ml) 5 5 -Bleeding Controlled with NA NA NA -Treatment Response Procedure Procedure Tolerated Well Tolerated Well Pain Scale: 0-10 Numeric Is Patient Pain Free? Yes Yes Laterality: Right - Anterior tibial surface Type of Debridement: Excisional debridement Anesthesia Used: 5% Lidocaine Gel Depth: Down to and including healthy tissue, in the subcutaneous layer Percentage of wound debrided: 100 Instrument Used: 3mm curette Severity: Fat Layer Exposed Amount of bleeding with debridement: Mild Bleeding Controlled with: Compression and gauze Patient tolerated procedure well Assessment/Plan Active Problems Wound of right leg (Chronic) Chronic venous insufficiency (Chronic) Venous hypertension of right lower extremity (Chronic) Varicose veins with inflammation (Chronic) Swelling of right lower extremity (Chronic) Edema of right lower extremity (Chronic) Hyperpigmentation (Chronic) Venous hypertension, chronic, with ulcer and inflammation (Chronic) Venous stasis ulcer (Chronic) Assessment: This is a 63-year-old male with stigmata of chronic venous disease. He presents with a wound on the right anterior tibial surface, which appears to be related to recent trauma. Physical examination reveals stigmata of chronic venous insufficiency and venous hypertension. Recent arterial study suggests relatively normal arterial status in the lower extremities bilaterally. A venous duplex examination reveals incompetence of the right great saphenous vein, the right small saphenous vein, the right accessory saphenous vein, and a orthodontic technician assistant located 11 cm proximal to the right medial malleolus. The patient has undergone laboratory studies on 01/04/2018, the results of which have been reviewed. Are as follows: Glucose 87, BUN 16, creatinine 0.98, total protein 7.7, albumin 3.7, calcium 8.7, AST 29, alkaline phosphatase 72, ALT 33, total bilirubin 0.80, sodium 139, potassium 4.6, chloride 104, serum prealbumin 23.9, white blood count 6.8, hemoglobin 14.0, hematocrit 41.7, platelets 199,000. Plan: Conservative treatment measures are to be continued. Leg elevation has been recommended. The patient indicates that he sleeps in an upright position, and the practice which has been discouraged. The patient has been advised to sleep on a flat mattress, with legs level with his heart. He has been encouraged to elevate his lower extremities as much as possible, even during daytime hours. His legs are to be elevated to heart level, or higher. Prolonged idle sitting has been discouraged. Activity has been encouraged. The patient's current weight appears to be reasonable. Compression is to be continued by means of graduated compression stockings of 20-30 mmHg compression, which the patient has now obtained, and is wearing daily. The patient may ultimately be a candidate for endovenous ablation of the incompetent superficial veins in the right lower extremity. The nature of the procedure has been discussed with the patient in detail, including indications and risks, expectations, etc. We are to continue the use of Ashley topically. Because of the recent bleeding episode, we will use Wound Veil or Adaptic adjacent to the wound with each dressing change. If bleeding is to occur from the site again, patient has been advised to apply compression and to elevate his leg above heart level. The indications and risks of endovenous laser ablation of the incompetent superficial veins of the right lower extremity have been discussed with the patient thoroughly once again. The expected benefits have been thoroughly explained. However, the patient wishes to postpone such intervention due to his current busy work schedule. He indicates that he will likely choose to pursue such intervention at a later date. Patient will return in 1 week for reassessment. Influenza vaccine was not administered today. The patient is not a smoker. The patient weighs 220 pounds. He stands 6 feet 1 inch tall. His BMI is 28.6. His places him in an overweight category. Mild weight loss has been recommended, with collaboration from his primary care physician.
== END 2018-02-18 23:59 ==
LOC: WC 08:30
PROVIDERS: Family Provider Family Medicine; PCP Family Medicine; Referring Provider Surgery; Visit Provider Surgery
DX: I87.2 Venous insufficiency (chronic) (peripheral) (principal); S81.831A Puncture wound without foreign body, right lower leg, initial encounter; X58.XXXA Exposure to other specified factors, initial encounter; R60.0 Localized edema; M79.89 Other specified soft tissue disorders; E78.5 Hyperlipidemia, unspecified; I48.2 Chronic atrial fibrillation; Z95.2 Presence of prosthetic heart valve; I83.10 Varicose veins of unspecified lower extremity with inflammation; I73.9 Peripheral vascular disease, unspecified; I10 Essential (primary) hypertension
CPT/HCPCS: 11042; 93922; 93970

== ENCOUNTER 2018-03-08 08:30 | Outpatient (RCR) | payer BC, SELFPAY ==
[2018-02-19 01:39] VITALS: BP 130/67; PULSE 86; RESP 18; TEMP 36.2
[2018-02-22 09:25] VITALS: BP 146/88; PULSE 77; RESP 16; TEMP 35.9; BMI 28.6
[2018-02-22 09:28] VITALS: BP 146/88; PULSE 77; RESP 16; TEMP 35.9; BMI 28.6
--- NOTE | 2018-02-22 09:57 | PCM.WC.HP ---
(1) Wound of right leg Status: Chronic Current Visit: Yes Qualifiers: Encounter type: subsequent encounter Code(s): S81.801A - Unspecified open wound, right lower leg, initial encounter (2) Chronic venous insufficiency Status: Chronic Current Visit: Yes Code(s): I87.2 - Venous insufficiency (chronic) (peripheral) (3) Venous hypertension of right lower extremity Status: Chronic Current Visit: Yes Code(s): I87.301 - Chronic venous hypertension (idiopathic) without complications of right lower extremity (4) Varicose veins with inflammation Status: Chronic Current Visit: Yes Code(s): I83.10 - Varicose veins of unspecified lower extremity with inflammation (5) Hypertension Status: Chronic Current Visit: No Code(s): I10 - Essential (primary) hypertension (6) Atrial fibrillation Status: Chronic Current Visit: No Code(s): I48.91 - Unspecified atrial fibrillation (7) Hyperlipidemia Status: Chronic Current Visit: No Code(s): E78.5 - Hyperlipidemia, unspecified (8) Swelling of right lower extremity Status: Chronic Current Visit: Yes Code(s): M79.89 - Other specified soft tissue disorders (9) Edema of right lower extremity Status: Chronic Current Visit: Yes Code(s): R60.0 - Localized edema (10) History of mitral valve replacement Status: Chronic Current Visit: No Code(s): Z95.2 - Presence of prosthetic heart valve (11) Hyperpigmentation Status: Chronic Current Visit: Yes Code(s): L81.9 - Disorder of pigmentation, unspecified (12) Venous hypertension, chronic, with ulcer and inflammation Status: Chronic Current Visit: Yes Qualifiers: Laterality: right Code(s): I87.339 - Chronic venous hypertension (idiopathic) with ulcer and inflammation of unspecified lower extremity; L97.909 - Non-pressure chronic ulcer of unspecified part of unspecified lower leg with unspecified severity (13) Venous stasis ulcer Status: Chronic Current Visit: Yes Qualifiers: Venous stasis ulcer site: calf Laterality: right Non-pressure ulcer stage: with fat layer exposed Code(s): I83.009 - Varicose veins of unspecified lower extremity with ulcer of unspecified site; L97.909 - Non-pressure chronic ulcer of unspecified part of unspecified lower leg with unspecified severity History of Present Illness Chief Complaint: Traumatic wound of the right anterior tibial surface, having occurred approximately 3-4 weeks prior to presentation History of Wound: This is a 63-year-old male who presented with a traumatic wound of the right anterior tibial surface. The patient indicates that he traumatized the right anterior tibial surface approximately 3-4 weeks prior to presentation, resulting in an open wound. He has been self treating. Approximately 4-5 days prior to presentation, very profuse bleeding occurred from the site, prompting him to seek medical attention at the emergency department at [facility]. The patient was placed on Keflex 500 mg p.o. 4 times daily, and referred for further evaluation and management. 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 He denies a history of thrombophlebitis in the past. He has previously been treated for an ulceration on the right anterior tibial surface. He claims to have swelling in his right lower extremity, worse at the end of the day. He sleeps in a chair, with his legs in a dependent position. He has stigmata of chronic venous insufficiency, with large, bulging varicosities in his right lower extremity, as well as areas of hyperpigmentation on the right anterior tibial surface and near the right medial malleolus. There is a healed venous ulceration near the right medial malleolus. Past Medical History Past Medical History: Chronic Problems Wound of right leg (Chronic) Chronic venous insufficiency (Chronic) Venous hypertension of right lower extremity (Chronic) Varicose veins with inflammation (Chronic) Hypertension (Chronic) Atrial fibrillation (Chronic) Hyperlipidemia (Chronic) Swelling of right lower extremity (Chronic) Edema of right lower extremity (Chronic) History of mitral valve replacement (Chronic) Hyperpigmentation (Chronic) Venous hypertension, chronic, with ulcer and inflammation (Chronic) Venous stasis ulcer (Chronic) Surgical History: - - Patient has previously undergone mitral valve replacement. Home Medications: Ambulatory Orders Medication Instructions Recorded Amoxicillin/Potassium Clav [Amox 1 each PO BID 06/20/14 Tr-K Clv 500-125 mg Tab] Losartan Potassium [Cozaar] 100 mg PO DAILY 06/20/14 - Family History Paternal - - The patient's father at the age of 74 with a history of chronic obstructive pulmonary disease. The patient's mother at age of 83 with a history of chronic obstructive pulmonary disease. Smoking Status: Never smoker Tobacco Use: Non-smoker Review of Systems Constitutional: Denies: Chills, Fever, Weight Change Eyes: Denies: Pain, Vision Change HEENT: Denies: Difficulty Hearing, Difficulty Swallowing, Sinus Congestion Cardiovascular: Denies: Chest Pain, Palpitations Respiratory: Denies: Cough, Shortness of Breath Gastrointestinal: Denies: Diarrhea, Nausea, Vomiting Genitourinary: Denies: Dysuria, Hematuria Endocrine: Denies: Heat/ Cold Intolerance, Polydipsia, Polyuria Hematologic/ Lymphatic: Denies: Easy Bruising, Easy Bleeding - Physical Exam Vital Signs Temp Pulse Resp BP 96.6 F L 77 16 146/88 H 02/22/18 09:28 02/22/18 09:28 02/22/18 09:02/22/18 09:28 General: Alert, Oriented x3, Cooperative, No apparent distress, Well developed, Well nourished HEENT: Atraumatic, PERRLA, EOMI, Normocephalic Oral: Moist Mucosa Neck: No JVD Lungs: Normal air movement Abdomen: Non-Distended Extremities: No clubbing, No cyanosis, No edema, No Calf Tenderness, - - The swelling and edema in the right lower extremity appears to be well controlled. It is minimal. The ulceration on the right anterior tibial surface persists, though is quite small in size and superficial. There is no sign of infection or cellulitis. The base of the ulceration is generally pink and healthy in appearance, with only a small amount of bioburden. Dimensions are documented elsewhere. Chronic hyperpigmentation persists in the gaiter area of the right lower extremity. A healed venous stasis ulceration is noted in the area near the right medial malleolus. Skin: No rashes Wound Measurements and Assessment WC - Nurse 1 - General Ulcer Measurement Start: 02/22/18 09:25 Freq: Status: Active Protocol: Activity Type Activity Date Activity User E-Sign Co-Sign Detail Recorded Client Recorded Date Recorded By Document 02/22/18 09:25 [id number] 02/22/18 09:28 CS Document 02/22/18 09:28 [id number] 02/22/18 09:30 CS 02/22/18 02/22/18 09:25 09:28 Wound Center Nurse 1 [Ulcer Assessment] #3 right cook -Combined with other wound No No -Current Size (cm) - Length 1 -Current Size (cm) - Width 0.5 -Current Size (cm) - Depth 0.1 -Total Square Cm 0.5 -Photo Taken No No -Epithelialization None Present -Tunneling No -Undermining/Tunneling No -Circular Undermining No -Exudate Amt Medium (34-66%) -Exudate Type Serosanguineous -Wound Margin Distinct, Outline Attached -Granulation Amt Large (67-100%) -Granulation Quality Red -Slough/Fibrin Yes -Necrosis Amt None Present (0 %) -Necrotic Tissue Type Adherent Slough -Structure Exposed None/Limited to Skin Breakdown -Texture (Yaquelin-wound Skin Appearance) No Abnormality Assessed -Moisture ([place]elin-wound Skin Appearance No Abnormality ) Assessed -Color ([place]elin-wound Skin Appearance) No Abnormality Assessed -Temperature ([place]-wound Skin No Abnormality Appearance) (Pt Warm) -Tenderness on Palpation ([place]elin-wound No Skin Appearance) -Ulcer Cleansing Rinsed/ Irrigated with Saline -Foul Odor after Cleansing No -Anesthetic Used 4% Lidocaine Solution [Edema Assessment] -Lower Limb Edema Present Yes -Right Calf (cm) 41.6 -Right Ankle (cm) 25 WC - Nurse 2 - General Ulcer CM Notes Start: 02/22/18 09:25 Freq: Status: Active Protocol: Activity Type Activity Date Activity User E-Sign Co-Sign Detail Recorded Client Recorded Date Recorded By Document 02/22/18 09:41 DV [id number] 02/22/18 09:46 DV 02/22/18 09:41 Wound Center Nurse 2 [Procedure/Treatment] #3 right cook -Time 09:42 -Correct Patient Yes -Correct Side, Site, Position Yes -Correct Procedure Yes -Procedure Performed Yes -Type of Procedure Debridement -Clinical Debridement Subcutaneous -Post Debridement Size (cm) - Length 1.0 -Post Debridement Size (cm) - Width 0.6 -Post Debridement Size (cm) - Depth 0.1 -Total Square Cm 0.60 -Wound/Ulcer Outcome Not Healed -Ulcer Cleansing Rinsed/ Irrigated with Saline -Foul Odor after Cleansing No -Bioengineered Tissue No -Bleeding Controlled with Pressure -Offloading No -Treatment Response Procedure Tolerated Well [See Physician Procedure note for Specifics] Pain Scale: 0-10 Numeric [Pain] -Is Patient Pain Free? No Neurological: Cranial nerves II-XII grossly intact, Neuro grossly intact Psych/Mental Status: Normal Affect, Appropriate, Alert and oriented to time, place, person, mood and affect Debridement Note Post-Debridement Measurements/Treatment WC - Nurse 2 - General Ulcer CM Notes Start: 02/22/18 09:25 Freq: Status: Active Protocol: Activity Type Activity Date Activity User E-Sign Co-Sign Detail Recorded Client Recorded Date Recorded By Document 02/22/18 09:41 DV [id number] 02/22/18 09:46 DV 02/22/18 09:41 Wound Center Nurse 2 #3 right cook -Time 09:42 -Correct Patient Yes -Correct Side, Site, Position Yes -Correct Procedure Yes -Procedure Performed Yes -Type of Procedure Debridement -Clinical Debridement Subcutaneous -Post Debridement Size (cm) - Length 1.0 -Post Debridement Size (cm) - Width 0.6 -Post Debridement Size (cm) - Depth 0.1 -Total Square Cm 0.60 -Wound/Ulcer Outcome Not Healed -Ulcer Cleansing Rinsed/ Irrigated with Saline -Foul Odor after Cleansing No -Bioengineered Tissue No -Bleeding Controlled with Pressure -Offloading No -Treatment Response Procedure Tolerated Well Pain Scale: 0-10 Numeric Is Patient Pain Free? No Laterality: Right - Anterior tibial surface Type of Debridement: Excisional debridement Anesthesia Used: 5% Lidocaine Gel Depth: Down to and including healthy tissue, in the subcutaneous layer Percentage of wound debrided: 100 Instrument Used: 3mm curette Severity: Fat Layer Exposed Amount of bleeding with debridement: Mild Bleeding Controlled with: Compression and gauze Patient tolerated procedure well Assessment/Plan Active Problems Wound of right leg (Chronic) Chronic venous insufficiency (Chronic) Venous hypertension of right lower extremity (Chronic) Varicose veins with inflammation (Chronic) Swelling of right lower extremity (Chronic) Edema of right lower extremity (Chronic) Hyperpigmentation (Chronic) Venous hypertension, chronic, with ulcer and inflammation (Chronic) Venous stasis ulcer (Chronic) Assessment: This is a 63-year-old male with stigmata of chronic venous disease. He presents with a wound on the right anterior tibial surface, which appears to be related to recent trauma. Physical examination reveals stigmata of chronic venous insufficiency and venous hypertension. Recent arterial study suggests relatively normal arterial status in the lower extremities bilaterally. 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 The patient has undergone laboratory studies on 01/04/2018, the results of which have been reviewed. Are as follows: Glucose 87, BUN 16, creatinine 0.98, total protein 7.7, albumin 3.7, calcium 8.7, AST 29, alkaline phosphatase 72, ALT 33, total bilirubin 0.80, sodium 139, potassium 4.6, chloride 104, serum prealbumin 23.9, white blood count 6.8, hemoglobin 14.0, hematocrit 41.7, platelets 199,000. Plan: Conservative treatment measures are to be continued. Leg elevation has been recommended. The patient indicates that he sleeps in an upright position, and the practice which has been discouraged. The patient has been advised to sleep on a flat mattress, with legs level with his heart. He has been encouraged to elevate his lower extremities as much as possible, even during daytime hours. His legs are to be elevated to heart level, or higher. Prolonged idle sitting has been discouraged. Activity has been encouraged. The patient's current weight appears to be reasonable. Compression is to be continued by means of graduated compression stockings of 20-30 mmHg compression, which the patient has now obtained, and is wearing daily. The patient may ultimately be a candidate for endovenous ablation of the incompetent superficial veins in the right lower extremity. The nature of the procedure has been discussed with the patient in detail, including indications and risks, expectations, etc. We are to continue the use of Ashley topically. Because of the recent bleeding episode, we will use Wound Veil or Adaptic adjacent to the wound with each dressing change. If bleeding is to occur from the site again, patient has been advised to apply compression and to elevate his leg above heart level. The indications and risks of endovenous laser ablation of the incompetent superficial veins of the right lower extremity have been discussed with the patient thoroughly once again. The expected benefits have been thoroughly explained. However, the patient wishes to postpone such intervention due to his current busy work schedule. He indicates that he will likely choose to pursue such intervention at a later date. Patient will return in 2 weeks for reassessment. Influenza vaccine was not administered today. The patient is not a smoker. The patient weighs 220 pounds. He stands 6 feet 1 inch tall. His BMI is 28.6. His places him in an overweight category. Mild weight loss has been recommended, with collaboration from his primary care physician.
[2018-03-08 08:38] VITALS: BP 145/79; PULSE 74; RESP 16; TEMP 36.6; BMI 28.6
--- NOTE | 2018-03-08 09:49 | PCM.WC.HP ---
(1) Wound of right leg Status: Chronic Current Visit: Yes Qualifiers: Encounter type: subsequent encounter Code(s): S81.801A - Unspecified open wound, right lower leg, initial encounter (2) Chronic venous insufficiency Status: Chronic Current Visit: Yes Code(s): I87.2 - Venous insufficiency (chronic) (peripheral) (3) Venous hypertension of right lower extremity Status: Chronic Current Visit: Yes Code(s): I87.301 - Chronic venous hypertension (idiopathic) without complications of right lower extremity (4) Varicose veins with inflammation Status: Chronic Current Visit: Yes Code(s): I83.10 - Varicose veins of unspecified lower extremity with inflammation (5) Hypertension Status: Chronic Current Visit: No Code(s): I10 - Essential (primary) hypertension (6) Atrial fibrillation Status: Chronic Current Visit: No Code(s): I48.91 - Unspecified atrial fibrillation (7) Hyperlipidemia Status: Chronic Current Visit: No Code(s): E78.5 - Hyperlipidemia, unspecified (8) Swelling of right lower extremity Status: Chronic Current Visit: Yes Code(s): M79.89 - Other specified soft tissue disorders (9) Edema of right lower extremity Status: Chronic Current Visit: Yes Code(s): R60.0 - Localized edema (10) History of mitral valve replacement Status: Chronic Current Visit: No Code(s): Z95.2 - Presence of prosthetic heart valve (11) Hyperpigmentation Status: Chronic Current Visit: Yes Code(s): L81.9 - Disorder of pigmentation, unspecified (12) Venous hypertension, chronic, with ulcer and inflammation Status: Chronic Current Visit: Yes Qualifiers: Laterality: right Code(s): I87.339 - Chronic venous hypertension (idiopathic) with ulcer and inflammation of unspecified lower extremity; L97.909 - Non-pressure chronic ulcer of unspecified part of unspecified lower leg with unspecified severity (13) Venous stasis ulcer Status: Chronic Current Visit: Yes Qualifiers: Venous stasis ulcer site: calf Laterality: right Non-pressure ulcer stage: with fat layer exposed Code(s): I83.009 - Varicose veins of unspecified lower extremity with ulcer of unspecified site; L97.909 - Non-pressure chronic ulcer of unspecified part of unspecified lower leg with unspecified severity History of Present Illness Chief Complaint: Traumatic wound of the right anterior tibial surface, having occurred approximately 3-4 weeks prior to presentation History of Wound: This is a 63-year-old male who presented with a traumatic wound of the right anterior tibial surface. The patient indicates that he traumatized the right anterior tibial surface approximately 3-4 weeks prior to presentation, resulting in an open wound. He has been self treating. Approximately 4-5 days prior to presentation, very profuse bleeding occurred from the site, prompting him to seek medical attention at the emergency department at [facility]. The patient was placed on Keflex 500 mg p.o. 4 times daily, and referred for further evaluation and management. 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 He denies a history of thrombophlebitis in the past. He has previously been treated for an ulceration on the right anterior tibial surface. He claims to have swelling in his right lower extremity, worse at the end of the day. He sleeps in a chair, with his legs in a dependent position. He has stigmata of chronic venous insufficiency, with large, bulging varicosities in his right lower extremity, as well as areas of hyperpigmentation on the right anterior tibial surface and near the right medial malleolus. There is a healed venous ulceration near the right medial malleolus. Past Medical History Past Medical History: Chronic Problems Wound of right leg (Chronic) Chronic venous insufficiency (Chronic) Venous hypertension of right lower extremity (Chronic) Varicose veins with inflammation (Chronic) Hypertension (Chronic) Atrial fibrillation (Chronic) Hyperlipidemia (Chronic) Swelling of right lower extremity (Chronic) Edema of right lower extremity (Chronic) History of mitral valve replacement (Chronic) Hyperpigmentation (Chronic) Venous hypertension, chronic, with ulcer and inflammation (Chronic) Venous stasis ulcer (Chronic) Surgical History: - - Patient has previously undergone mitral valve replacement. Home Medications: Ambulatory Orders Medication Instructions Recorded Amoxicillin/Potassium Clav [Amox 1 each PO BID 06/20/14 Tr-K Clv 500-125 mg Tab] Losartan Potassium [Cozaar] 100 mg PO DAILY 06/20/14 - Family History Paternal - - The patient's father at the age of 74 with a history of chronic obstructive pulmonary disease. The patient's mother at age of 83 with a history of chronic obstructive pulmonary disease. Smoking Status: Never smoker Tobacco Use: Non-smoker Review of Systems Constitutional: Denies: Chills, Fever, Weight Change Eyes: Denies: Pain, Vision Change HEENT: Denies: Difficulty Hearing, Difficulty Swallowing, Sinus Congestion Cardiovascular: Denies: Chest Pain, Palpitations Respiratory: Denies: Cough, Shortness of Breath Gastrointestinal: Denies: Diarrhea, Nausea, Vomiting Genitourinary: Denies: Dysuria, Hematuria Endocrine: Denies: Heat/ Cold Intolerance, Polydipsia, Polyuria Hematologic/ Lymphatic: Denies: Easy Bruising, Easy Bleeding - Physical Exam Vital Signs Temp Pulse Resp BP 97.8 F 74 16 145/79 H 03/08/18 08:38 12 08:38 03/08/18 08:38 03/08/18 08:38 General: Alert, Oriented x3, Cooperative, No apparent distress, Well developed, Well nourished HEENT: Atraumatic, PERRLA, EOMI, Normocephalic Oral: Moist Mucosa Neck: No JVD Lungs: Normal air movement Abdomen: Non-Distended Extremities: No clubbing, No cyanosis, No edema, No Calf Tenderness, - - The ulceration on the right anterior tibial surface is markedly improved. It is now nearly totally healed. What remains is quite small, and very superficial. Dimensions are documented elsewhere. The base of the ulceration is pink and healthy in appearance, with active granulation tissue. There is no sign of infection or cellulitis. Chronic hyperpigmentation persists. Wound Measurements and Assessment WC - Nurse 1 - General Ulcer Measurement Start: 02/22/18 09:25 Freq: Status: Active Protocol: Activity Type Activity Date Activity User E-Sign Co-Sign Detail Recorded Client Recorded Date Recorded By Document 03/08/18 08:38 MW [id number] 03/08/18 08:40 MW 03/08/18 08:38 Wound Center Nurse 1 [Ulcer Assessment] #3 right cook -Combined with other wound No -Current Size (cm) - Length 0.1 -Current Size (cm) - Width 0.1 -Current Size (cm) - Depth 0.1 -Total Square Cm 0.01 -Photo Taken No -Epithelialization Small 1-33% -Tunneling No -Undermining/Tunneling No -Circular Undermining No -Exudate Amt Small (1-33%) -Exudate Type Serosanguineous -Wound Margin Flat & Intact -Granulation Amt Medium (34-66%) -Granulation Quality [place] -Slough/Fibrin Yes -Necrosis Amt Small (1-33%) -Necrotic Tissue Type Adherent Slough -Structure Exposed N/A -Texture ([place]-wound Skin Appearance) Assessed Scarring -Moisture ([place]-wound Skin Appearance No Abnormality ) Assessed -Color ([place]-wound Skin Appearance) Assessed Hemosiderin Staining -Temperature ([place]-wound Skin No Abnormality Appearance) (Pt Warm) -Tenderness on Palpation ([place]-wound No Skin Appearance) -Ulcer Cleansing Rinsed/ Irrigated with Saline -Foul Odor after Cleansing No -Anesthetic Used 5% Lidocaine Gel [Edema Assessment] -Lower Limb Edema Present Yes -Right Calf (cm) 42.3 -Right Ankle (cm) 23.8 - Nurse 2 - General Ulcer CM Notes Start: 02/22/18 09:25 Freq: Status: Active Protocol: Activity Type Activity Date Activity User E-Sign Co-Sign Detail Recorded Client Recorded Date Recorded By Document 03/08/18 09:41 DV [id number] 03/08/18 09:44 DV 03/08/18 09:41 Wound Center Nurse 2 [Procedure/Treatment] #3 right cook -Time 09:42 -Correct Patient Yes -Correct Side, Site, Position Yes -Correct Procedure Yes -Procedure Performed Yes -Type of Procedure Debridement -Clinical Debridement Selective -Post Debridement Size (cm) - Length 0.2 -Post Debridement Size (cm) - Width 0.2 -Post Debridement Size (cm) - Depth 0.1 -Total Square Cm 0.04 -Wound/Ulcer Outcome Not Healed -Ulcer Cleansing Rinsed/ Irrigated with Saline -Foul Odor after Cleansing No -Bioengineered Tissue No -Bleeding Controlled with Pressure -Offloading No -Treatment Response Procedure Tolerated Well [See Physician Procedure note for Specifics] Pain Scale: 0-10 Numeric [Pain] -Is Patient Pain Free? Yes Musculoskeletal: No Muscle Wasting Neurological: Cranial nerves II-XII grossly intact, Neuro grossly intact Psych/Mental Status: Normal Affect, Appropriate, Alert and oriented to time, place, person, mood and affect Debridement Note Post-Debridement Measurements/Treatment WC - Nurse 2 - General Ulcer CM Notes Start: 02/22/18 09:25 Freq: Status: Active Protocol: Activity Type Activity Date Activity User E-Sign Co-Sign Detail Recorded Client Recorded Date Recorded By Document 02/22/18 09:41 DV [id number] 02/22/18 09:46 DV Document 03/08/18 09:41 DV [id number] 03/08/18 09:44 DV 02/22/18 03/08/18 09:41 09:41 Wound Center Nurse 2 #3 right cook -Time 09:42 09:42 -Correct Patient Yes Yes -Correct Side, Site, Position Yes Yes -Correct Procedure Yes Yes -Procedure Performed Yes Yes -Type of Procedure Debridement Debridement -Clinical Debridement Subcutaneous Selective -Post Debridement Size (cm) - Length 1.0 0.2 -Post Debridement Size (cm) - Width 0.6 0.2 -Post Debridement Size (cm) - Depth 0.1 0.1 -Total Square Cm 0.60 0.04 -Wound/Ulcer Outcome Not Healed Not Healed -Ulcer Cleansing Rinsed/ Rinsed/ Irrigated with Irrigated with Saline Saline -Foul Odor after Cleansing No No -Bioengineered Tissue No No -Bleeding Controlled with Pressure Pressure -Offloading No No -Treatment Response Procedure Procedure Tolerated Well Tolerated Well Pain Scale: 0-10 Numeric Is Patient Pain Free? No Yes Laterality: Right - Her tibial surface Type of Debridement: Selective debridement Anesthesia Used: 5% Lidocaine Gel Depth: Down to and including healthy tissue Percentage of wound debrided: 100 Instrument Used: 7mm curette Severity: Fat Layer Exposed Amount of bleeding with debridement: Mild Bleeding Controlled with: Compression and gauze Patient tolerated procedure well Assessment/Plan Active Problems Wound of right leg (Chronic) Chronic venous insufficiency (Chronic) Venous hypertension of right lower extremity (Chronic) Varicose veins with inflammation (Chronic) Swelling of right lower extremity (Chronic) Edema of right lower extremity (Chronic) Hyperpigmentation (Chronic) Venous hypertension, chronic, with ulcer and inflammation (Chronic) Venous stasis ulcer (Chronic) Assessment: This is a 63-year-old male with stigmata of chronic venous disease. He presents with a wound on the right anterior tibial surface, which appears to be related to recent trauma. Physical examination reveals stigmata of chronic venous insufficiency and venous hypertension. Recent arterial study suggests relatively normal arterial status in the lower extremities bilaterally. A venous duplex examination reveals incompetence of the right great saphenous vein, the right small saphenous vein, the right accessory saphenous vein, and a smudger located 11 cm proximal to the right medial malleolus. The patient has undergone laboratory studies on 01/04/2018, the results of which have been reviewed. Are as follows: Glucose 87, BUN 16, creatinine 0.98, total protein 7.7, albumin 3.7, calcium 8.7, AST 29, alkaline phosphatase 72, ALT 33, total bilirubin 0.80, sodium 139, potassium 4.6, chloride 104, serum prealbumin 23.9, white blood count 6.8, hemoglobin 14.0, hematocrit 41.7, platelets 199,000. Plan: Conservative treatment measures are to be continued. Leg elevation has been recommended. The patient indicates that he sleeps in an upright position, and the practice which has been discouraged. The patient has been advised to sleep on a flat mattress, with legs level with his heart. He has been encouraged to elevate his lower extremities as much as possible, even during daytime hours. His legs are to be elevated to heart level, or higher. Prolonged idle sitting has been discouraged. Activity has been encouraged. The patient's current weight appears to be reasonable. Compression is to be continued by means of graduated compression stockings of 20-30 mmHg compression, which the patient has now obtained, and is wearing daily. The patient may ultimately be a candidate for endovenous ablation of the incompetent superficial veins in the right lower extremity. The nature of the procedure has been discussed with the patient in detail, including indications and risks, expectations, etc. We are to transition to the use of collagen hydrogel topically on a daily basis. Because of the recent bleeding episode, we will use Wound Veil or Adaptic adjacent to the wound with each dressing change. If bleeding is to occur from the site again, patient has been advised to apply compression and to elevate his leg above heart level. The indications and risks of endovenous laser ablation of the incompetent superficial veins of the right lower extremity have been discussed with the patient thoroughly once again. The expected benefits have been thoroughly explained. However, the patient wishes to postpone such intervention due to his current busy work schedule. He indicates that he will likely choose to pursue such intervention at a later date. Patient will return in 3 weeks for reassessment due to the impending holidays. Influenza vaccine was not administered today. The patient is not a smoker. The patient weighs 220 pounds. He stands 6 feet 1 inch tall. His BMI is 28.6. His places him in an overweight category. Mild weight loss has been recommended, with collaboration from his primary care physician.
== END 2018-03-21 23:59 ==
LOC: WC 08:30
PROVIDERS: Family Provider Family Medicine; PCP Family Medicine; Referring Provider Surgery; Visit Provider Surgery
DX: S80.811A Abrasion, right lower leg, initial encounter (principal); X58.XXXA Exposure to other specified factors, initial encounter; I10 Essential (primary) hypertension; I48.2 Chronic atrial fibrillation; E78.5 Hyperlipidemia, unspecified; Z95.2 Presence of prosthetic heart valve; I83.11 Varicose veins of right lower extremity with inflammation
CPT/HCPCS: 11042; 97597

== ENCOUNTER 2018-04-12 08:00 | Outpatient (RCR) | payer BC, SELFPAY ==
[2018-03-22 01:08] VITALS: BP 145/79; PULSE 74; RESP 16; TEMP 36.6
[2018-03-29 08:07] VITALS: BP 128/81; PULSE 65; RESP 16; TEMP 36.4; BMI 28.6
--- NOTE | 2018-03-29 08:42 | HP.PCM_ITS ---
(1) Wound of right leg Status: Chronic Current Visit: Yes Qualifiers: Encounter type: subsequent encounter Code(s): S81.801A - Unspecified open wound, right lower leg, initial encounter (2) Chronic venous insufficiency Status: Chronic Current Visit: Yes Code(s): I87.2 - Venous insufficiency (chronic) (peripheral) (3) Venous hypertension of right lower extremity Status: Chronic Current Visit: Yes Code(s): I87.301 - Chronic venous hypertension (idiopathic) without complications of right lower extremity (4) Hypertension Status: Chronic Current Visit: No Code(s): I10 - Essential (primary) hypertension (5) Atrial fibrillation Status: Chronic Current Visit: No Code(s): I48.91 - Unspecified atrial fibrillation (6) Hyperlipidemia Status: Chronic Current Visit: No Code(s): E78.5 - Hyperlipidemia, unspecified (7) Swelling of right lower extremity Status: Chronic Current Visit: Yes Code(s): M79.89 - Other specified soft tissue disorders (8) Edema of right lower extremity Status: Chronic Current Visit: Yes Code(s): R60.0 - Localized edema (9) History of mitral valve replacement Status: Chronic Current Visit: No Code(s): Z95.2 - Presence of prosthetic heart valve (10) Hyperpigmentation Status: Chronic Current Visit: Yes Code(s): L81.9 - Disorder of pigmentation, unspecified (11) Venous hypertension, chronic, with ulcer and inflammation Status: Chronic Current Visit: Yes Qualifiers: Laterality: right Code(s): I87.339 - Chronic venous hypertension (idiopathic) with ulcer and inflammation of unspecified lower extremity; L97.909 - Non-pressure chronic ulcer of unspecified part of unspecified lower leg with unspecified severity (12) Venous stasis ulcer Status: Chronic Current Visit: Yes Qualifiers: Venous stasis ulcer site: calf Laterality: right Non-pressure ulcer stage: with fat layer exposed Code(s): I83.009 - Varicose veins of unspecified lower extremity with ulcer of unspecified site; L97.909 - Non-pressure chronic ulcer of unspecified part of unspecified lower leg with unspecified severity (13) Varicose veins with ulcer and inflammation Status: Chronic Current Visit: Yes Code(s): I83.209 - Varicose veins of unspecified lower extremity with both ulcer of unspecified site and inflammation; L97.909 - Non-pressure chronic ulcer of unspecified part of unspecified lower leg with unspecified severity History of Present Illness Chief Complaint: Traumatic wound of the right anterior tibial surface, having occurred approximately 3-4 weeks prior to presentation History of Wound: This is a 63-year-old male who presented with a traumatic wound of the right anterior tibial surface. The patient indicates that he traumatized the right anterior tibial surface approximately 3-4 weeks prior to presentation, resulting in an open wound. He has been self treating. Approximately 4-5 days prior to presentation, very profuse bleeding occurred from the site, prompting him to seek medical attention at the emergency department at [facility]. The patient was placed on Keflex 500 mg p.o. 4 times daily, and referred for further evaluation and management. 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 He denies a history of thrombophlebitis in the past. He has previously been treated for an ulceration on the right anterior tibial surface. He claims to have swelling in his right lower extremity, worse at the end of the day. He sleeps in a chair, with his legs in a dependent position. He has stigmata of chronic venous insufficiency, with large, bulging varicosities in his right lower extremity, as well as areas of hyperpigmentation on the right anterior tibial surface and near the right medial malleolus. There is a healed venous ulceration near the right medial malleolus. Past Medical History Past Medical History: Chronic Problems Wound of right leg (Chronic) Chronic venous insufficiency (Chronic) Venous hypertension of right lower extremity (Chronic) Varicose veins with inflammation (Chronic) Hypertension (Chronic) Atrial fibrillation (Chronic) Hyperlipidemia (Chronic) Swelling of right lower extremity (Chronic) Edema of right lower extremity (Chronic) History of mitral valve replacement (Chronic) Hyperpigmentation (Chronic) Venous hypertension, chronic, with ulcer and inflammation (Chronic) Venous stasis ulcer (Chronic) Varicose veins with ulcer and inflammation (Chronic) Surgical History: - - Patient has previously undergone mitral valve replacement. Home Medications: Ambulatory Orders Medication Instructions Recorded Amoxicillin/Potassium Clav [Amox 1 each PO BID 06/20/14 Tr-K Clv 500-125 mg Tab] Losartan Potassium [Cozaar] 100 mg PO DAILY 06/20/14 - Family History Paternal - - The patient's father at the age of 74 with a history of chronic obstructive pulmonary disease. The patient's mother at age of 83 with a history of chronic obstructive pulmonary disease. Smoking Status: Never smoker Tobacco Use: Non-smoker Review of Systems Constitutional: Denies: Chills, Fever, Weight Change Eyes: Denies: Pain, Vision Change HEENT: Denies: Difficulty Hearing, Difficulty Swallowing, Sinus Congestion Cardiovascular: Denies: Chest Pain, Palpitations Respiratory: Denies: Cough, Shortness of Breath Gastrointestinal: Denies: Diarrhea, Nausea, Vomiting Genitourinary: Denies: Dysuria, Hematuria Endocrine: Denies: Heat/ Cold Intolerance, Polydipsia, Polyuria Hematologic/ Lymphatic: Denies: Easy Bruising, Easy Bleeding - Physical Exam Vital Signs Temp Pulse Resp BP 97.5 F L 65 16 128/81 H 03/29/18 08:07 03/29/18 08:07 03/29/18 08:07 03/29/18 08:07 General: Alert, Oriented x3, Cooperative, No apparent distress, Well developed, Well nourished HEENT: Atraumatic, PERRLA, EOMI, Normocephalic Oral: Moist Mucosa Neck: No JVD Lungs: Normal air movement Abdomen: Non-Distended Extremities: No clubbing, No cyanosis, No Calf Tenderness, - - The swelling and edema in the right lower extremity is well controlled. It is minimal at this time. Hyperpigmentation and lipodermatosclerosis persist in the gaiter area of the right lower extremity. The patient's wound/ulceration on the right anterior tibial surface is superficial, but larger in size. Dimensions are documented elsewhere. There is no sign of infection or cellulitis. There is a mild amount of bioburden. Wound Measurements and Assessment WC - Nurse 1 - General Ulcer Measurement Start: 03/29/18 08:07 Freq: Status: Active Protocol: Activity Type Activity Date Activity User E-Sign Co-Sign Detail Recorded Client Recorded Date Recorded By Document 03/29/18 08:07 BRITTNY [id number] 03/29/18 08:12 BRITTNY 03/29/18 08:07 Wound Center Nurse 1 [Ulcer Assessment] #3 right cook -Combined with other wound No -Current Size (cm) - Length 2.0 -Current Size (cm) - Width 1.5 -Current Size (cm) - Depth 0.1 -Total Square Cm 3.00 -Photo Taken No -Epithelialization Large 67-100% -Tunneling No -Undermining/Tunneling No -Circular Undermining No -Exudate Amt Medium (34-66%) -Exudate Type Sanguineous -Wound Margin Flat & Intact -Granulation Amt Large (67-100%) -Granulation Quality Red -Slough/Fibrin Yes -Necrosis Amt Small (1-33%) -Necrotic Tissue Type Adherent Slough -Structure Exposed N/A -Texture ([place]-wound Skin Appearance) Assessed Localized Edema -Moisture ([place]-wound Skin Appearance Assessed ) Dry/Scaly -Color ([place]-wound Skin Appearance) Assessed Hemosiderin Staining -Temperature ([place]-wound Skin No Abnormality Appearance) (Pt Warm) -Tenderness on Palpation ([place]-wound No Skin Appearance) -Ulcer Cleansing Rinsed/ Irrigated with Saline -Foul Odor after Cleansing No -Anesthetic Used 5% Lidocaine Gel [Edema Assessment] -Lower Limb Edema Present Yes -Right Calf (cm) 41.8 -Right Ankle (cm) 25.5 WC - Nurse 2 - General Ulcer CM Notes Start: 03/29/18 08:07 Freq: Status: Active Protocol: Activity Type Activity Date Activity User E-Sign Co-Sign Detail Recorded Client Recorded Date Recorded By Document 03/29/18 08:32 DV [id number] 03/29/18 08:35 DV 03/29/18 08:32 Wound Center Nurse 2 [Procedure/Treatment] #3 right cook -Time 08:33 -Correct Patient Yes -Correct Side, Site, Position Yes -Correct Procedure Yes -Procedure Performed Yes -Type of Procedure Debridement -Clinical Debridement Subcutaneous -Post Debridement Size (cm) - Length 5.0 -Post Debridement Size (cm) - Width 2.5 -Post Debridement Size (cm) - Depth 0.2 -Total Square Cm 12.50 -Wound/Ulcer Outcome Not Healed -Ulcer Cleansing Rinsed/ Irrigated with Saline -Foul Odor after Cleansing No -Bioengineered Tissue No -Bleeding Controlled with Pressure -Offloading No -Treatment Response Procedure Tolerated Well [See Physician Procedure note for Specifics] Pain Scale: 0-10 Numeric [Pain] -Is Patient Pain Free? Yes Musculoskeletal: No Muscle Wasting Neurological: Cranial nerves II-XII grossly intact, Neuro grossly intact Psych/Mental Status: Normal Affect, Appropriate, Alert and oriented to time, place, person, mood and affect Debridement Note Post-Debridement Measurements/Treatment WC - Nurse 2 - General Ulcer CM Notes Start: 03/29/18 08:07 Freq: Status: Active Protocol: Activity Type Activity Date Activity User E-Sign Co-Sign Detail Recorded Client Recorded Date Recorded By Document 03/29/18 08:32 DV [id number] 03/29/18 08:35 DV 03/29/18 08:32 Wound Center Nurse 2 #3 right cook -Time 08:33 -Correct Patient Yes -Correct Side, Site, Position Yes -Correct Procedure Yes -Procedure Performed Yes -Type of Procedure Debridement -Clinical Debridement Subcutaneous -Post Debridement Size (cm) - Length 5.0 -Post Debridement Size (cm) - Width 2.5 -Post Debridement Size (cm) - Depth 0.2 -Total Square Cm 12.50 -Wound/Ulcer Outcome Not Healed -Ulcer Cleansing Rinsed/ Irrigated with Saline -Foul Odor after Cleansing No -Bioengineered Tissue No -Bleeding Controlled with Pressure -Offloading No -Treatment Response Procedure Tolerated Well Pain Scale: 0-10 Numeric Is Patient Pain Free? Yes Laterality: Right - Anterior tibial surface Type of Debridement: Excisional debridement Anesthesia Used: 5% Lidocaine Gel Depth: Down to and including healthy tissue, in the subcutaneous layer Percentage of wound debrided: 100 Instrument Used: 3mm curette Severity: Fat Layer Exposed Amount of bleeding with debridement: Mild Bleeding Controlled with: Compression and gauze Patient tolerated procedure well Assessment/Plan Active Problems Wound of right leg (Chronic) Chronic venous insufficiency (Chronic) Venous hypertension of right lower extremity (Chronic) Swelling of right lower extremity (Chronic) Edema of right lower extremity (Chronic) Hyperpigmentation (Chronic) Venous hypertension, chronic, with ulcer and inflammation (Chronic) Venous stasis ulcer (Chronic) Varicose veins with ulcer and inflammation (Chronic) Assessment: This is a 63-year-old male with stigmata of chronic venous disease. He presented with a wound on the right anterior tibial surface, which appeared to be related to recent trauma. Physical examination reveals stigmata of chronic venous insufficiency and venous hypertension. At today's visit, there has clearly been some increase in the size of the patient's venous ulceration. Recent arterial study suggests relatively normal arterial status in the lower extremities bilaterally. A venous duplex examination reveals incompetence of the right great saphenous vein, the right small saphenous vein, the right accessory saphenous vein, and a student services coordinator located 11 cm proximal to the right medial malleolus. The patient has undergone laboratory studies on 01/04/2018, the results of which have been reviewed. Are as follows: Glucose 87, BUN 16, creatinine 0.98, total protein 7.7, albumin 3.7, calcium 8.7, AST 29, alkaline phosphatase 72, ALT 33, total bilirubin 0.80, sodium 139, potassium 4.6, chloride 104, serum prealbumin 23.9, white blood count 6.8, hemoglobin 14.0, hematocrit 41.7, platelets 199,000. Plan: Conservative treatment measures are to be continued, and the patient is to redouble his efforts at conservative treatment. Leg elevation has been recommended. The patient indicates that he sleeps in an upright position, and the practice which has been discouraged. The patient has been advised to sleep on a flat mattress, with legs level with his heart. He has been encouraged to elevate his lower extremities as much as possible, even during daytime hours. His legs are to be elevated to heart level, or higher. Prolonged idle sitting has been discouraged. Activity has been encouraged. The patient's current weight appears to be reasonable. Compression is to be continued by means of graduated compression stockings of 20-30 mmHg compression, which the patient has now obtained, and is wearing daily. We are to transition from the use of collagen hydrogel, to the use of Ashley applied topically every other day. The patient is a candidate for endovenous ablation of the incompetent superficial veins in the right lower extremity. The nature of the procedure has been discussed with the patient in detail, once again including indications and risks, expectations, etc. The indications and risks of endovenous laser ablation of the incompetent superficial veins of the right lower extremity have been discussed with the patient thoroughly once again. The expected benefits have been thoroughly explained. However, the patient wishes to postpone such intervention due to his current busy work schedule. He indicates that he may choose to pursue such intervention at a later date. Patient will return in 1 week for reassessment. Influenza vaccine was not administered today. The patient is not a smoker. The patient weighs 220 pounds. He stands 6 feet 1 inch tall. His BMI is 28.6. His places him in an overweight category. Mild weight loss has been recommended, with collaboration from his primary care physician.
[2018-04-05 08:08] VITALS: BP 141/83; PULSE 66; RESP 18; TEMP 36.6; BMI 28.6
--- NOTE | 2018-04-05 08:31 | HP.PCM_ITS ---
(1) Wound of right leg Status: Chronic Current Visit: Yes Qualifiers: Encounter type: subsequent encounter Code(s): S81.801A - Unspecified open wound, right lower leg, initial encounter (2) Chronic venous insufficiency Status: Chronic Current Visit: Yes Code(s): I87.2 - Venous insufficiency (chronic) (peripheral) (3) Venous hypertension of right lower extremity Status: Chronic Current Visit: Yes Code(s): I87.301 - Chronic venous hypertension (idiopathic) without complications of right lower extremity (4) Hypertension Status: Chronic Current Visit: No Code(s): I10 - Essential (primary) hypertension (5) Atrial fibrillation Status: Chronic Current Visit: No Code(s): I48.91 - Unspecified atrial fibrillation (6) Hyperlipidemia Status: Chronic Current Visit: No Code(s): E78.5 - Hyperlipidemia, unspecified (7) Swelling of right lower extremity Status: Chronic Current Visit: Yes Code(s): M79.89 - Other specified soft tissue disorders (8) Edema of right lower extremity Status: Chronic Current Visit: Yes Code(s): R60.0 - Localized edema (9) History of mitral valve replacement Status: Chronic Current Visit: No Code(s): Z95.2 - Presence of prosthetic heart valve (10) Hyperpigmentation Status: Chronic Current Visit: Yes Code(s): L81.9 - Disorder of pigmentation, unspecified (11) Venous hypertension, chronic, with ulcer and inflammation Status: Chronic Current Visit: Yes Qualifiers: Laterality: right Code(s): I87.339 - Chronic venous hypertension (idiopathic) with ulcer and inflammation of unspecified lower extremity; L97.909 - Non-pressure chronic ulcer of unspecified part of unspecified lower leg with unspecified severity (12) Venous stasis ulcer Status: Chronic Current Visit: Yes Qualifiers: Venous stasis ulcer site: calf Laterality: right Non-pressure ulcer stage: with fat layer exposed Code(s): I83.009 - Varicose veins of unspecified lower extremity with ulcer of unspecified site; L97.909 - Non-pressure chronic ulcer of unspecified part of unspecified lower leg with unspecified severity (13) Varicose veins with ulcer and inflammation Status: Chronic Current Visit: Yes Code(s): I83.209 - Varicose veins of unspecified lower extremity with both ulcer of unspecified site and inflammation; L97.909 - Non-pressure chronic ulcer of unspecified part of unspecified lower leg with unspecified severity History of Present Illness Chief Complaint: Traumatic wound of the right anterior tibial surface, having occurred approximately 3-4 weeks prior to presentation History of Wound: This is a 63-year-old male who presented with a traumatic wound of the right anterior tibial surface. The patient indicates that he traumatized the right anterior tibial surface approximately 3-4 weeks prior to presentation, resulting in an open wound. He has been self treating. Approximately 4-5 days prior to presentation, very profuse bleeding occurred from the site, prompting him to seek medical attention at the emergency department at [facility]. The patient was placed on Keflex 500 mg p.o. 4 times daily, and referred for further evaluation and management. 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 He denies a history of thrombophlebitis in the past. He has previously been treated for an ulceration on the right anterior tibial surface. He claims to have swelling in his right lower extremity, worse at the end of the day. He sleeps in a chair, with his legs in a dependent position. He has stigmata of chronic venous insufficiency, with large, bulging varicosities in his right lower extremity, as well as areas of hyperpigmentation on the right anterior tibial surface and near the right medial malleolus. There is a healed venous ulceration near the right medial malleolus. Past Medical History Past Medical History: Chronic Problems Wound of right leg (Chronic) Chronic venous insufficiency (Chronic) Venous hypertension of right lower extremity (Chronic) Varicose veins with inflammation (Chronic) Hypertension (Chronic) Atrial fibrillation (Chronic) Hyperlipidemia (Chronic) Swelling of right lower extremity (Chronic) Edema of right lower extremity (Chronic) History of mitral valve replacement (Chronic) Hyperpigmentation (Chronic) Venous hypertension, chronic, with ulcer and inflammation (Chronic) Venous stasis ulcer (Chronic) Varicose veins with ulcer and inflammation (Chronic) Surgical History: - - Patient has previously undergone mitral valve replacement. Home Medications: Ambulatory Orders Medication Instructions Recorded Amoxicillin/Potassium Clav [Amox 1 each PO BID 06/20/14 Tr-K Clv 500-125 mg Tab] Losartan Potassium [Cozaar] 100 mg PO DAILY 06/20/14 - Family History Paternal - - The patient's father at the age of 74 with a history of chronic obstructive pulmonary disease. The patient's mother at age of 83 with a history of chronic obstructive pulmonary disease. Smoking Status: Never smoker Tobacco Use: Non-smoker Review of Systems Constitutional: Denies: Chills, Fever, Weight Change Eyes: Denies: Pain, Vision Change HEENT: Denies: Difficulty Hearing, Difficulty Swallowing, Sinus Congestion Cardiovascular: Denies: Chest Pain, Palpitations Respiratory: Denies: Cough, Shortness of Breath Gastrointestinal: Denies: Diarrhea, Nausea, Vomiting Genitourinary: Denies: Dysuria, Hematuria Endocrine: Denies: Heat/ Cold Intolerance, Polydipsia, Polyuria Hematologic/ Lymphatic: Denies: Easy Bruising, Easy Bleeding - Physical Exam Vital Signs Temp Pulse Resp BP 97.8 F 66 18 141/83 H 04/05/18 08:08 04/05/18 08:08 04/05/18 08:08 04/05/18 08:08 General: Alert, Oriented x3, Cooperative, No apparent distress, Well developed, Well nourished HEENT: Atraumatic, PERRLA, EOMI, Normocephalic Oral: Moist Mucosa Neck: No JVD Lungs: Normal air movement Abdomen: Non-Distended Extremities: No clubbing, No cyanosis, No edema, No Calf Tenderness, - - There is no significant swelling or edema in the right lower extremity. Chronic hyperpigmentation persists in the gaiter area of the right lower extremity. The ulceration on the right anterior tibial surface persists, but is smaller than previously noted. Dimensions are documented elsewhere. There is a small amount of bioburden. There is no sign of infection or cellulitis. Skin: No rashes Wound Measurements and Assessment WC - Nurse 1 - General Ulcer Measurement Start: 03/29/18 08:07 Freq: Status: Active Protocol: Activity Type Activity Date Activity User E-Sign Co-Sign Detail Recorded Client Recorded Date Recorded By Document 04/05/18 08:08 BRITTNY [id number] 04/05/18 08:09 BRITTNY 04/05/18 08:08 Wound Center Nurse 1 [Ulcer Assessment] #3 right cook -Combined with other wound No -Current Size (cm) - Length 2.4 -Current Size (cm) - Width 1.8 -Current Size (cm) - Depth 0.1 -Total Square Cm 4.32 -Photo Taken No -Epithelialization Medium 34-66% -Tunneling No -Undermining/Tunneling No -Circular Undermining No -Exudate Amt None Present -Wound Margin Flat & Intact -Granulation Amt Medium (34-66%) -Granulation Quality Red -Slough/Fibrin Yes -Necrosis Amt Small (1-33%) -Necrotic Tissue Type Adherent Slough -Structure Exposed N/A -Texture ([place]-wound Skin Appearance) Assessed Excoriation Localized Edema -Moisture ([place]-wound Skin Appearance Assessed ) Dry/Scaly -Color ([place]-wound Skin Appearance) Assessed Hemosiderin Staining -Temperature ([place]-wound Skin No Abnormality Appearance) (Pt Warm) -Tenderness on Palpation ([place]-wound No Skin Appearance) -Ulcer Cleansing Rinsed/ Irrigated with Saline -Foul Odor after Cleansing No -Anesthetic Used 4% Lidocaine Solution [Edema Assessment] -Lower Limb Edema Present Yes -Right Calf (cm) 40.0 -Right Ankle (cm) 24.3 WC - Nurse 2 - General Ulcer CM Notes Start: 03/29/18 08:07 Freq: Status: Active Protocol: Activity Type Activity Date Activity User E-Sign Co-Sign Detail Recorded Client Recorded Date Recorded By Document 04/05/18 08:23 DV [id number] 04/05/18 08:24 DV 04/05/18 08:23 Wound Center Nurse 2 [Procedure/Treatment] #3 right cook -Time 08:23 -Correct Patient Yes -Correct Side, Site, Position Yes -Correct Procedure Yes -Procedure Performed Yes -Type of Procedure Debridement -Clinical Debridement Subcutaneous -Post Debridement Size (cm) - Length 2.5 -Post Debridement Size (cm) - Width 1.9 -Post Debridement Size (cm) - Depth 0.1 -Total Square Cm 4.75 -Wound/Ulcer Outcome Not Healed -Ulcer Cleansing Rinsed/ Irrigated with Saline -Foul Odor after Cleansing No -Bioengineered Tissue No -Bleeding Controlled with Pressure -Offloading No -Treatment Response Procedure Tolerated Well [See Physician Procedure note for Specifics] Pain Scale: 0-10 Numeric [Pain] -Is Patient Pain Free? Yes Musculoskeletal: No Muscle Wasting Neurological: Cranial nerves II-XII grossly intact, Neuro grossly intact Psych/Mental Status: Normal Affect, Appropriate, Alert and oriented to time, place, person, mood and affect Debridement Note Post-Debridement Measurements/Treatment WC - Nurse 2 - General Ulcer CM Notes Start: 03/29/18 08:07 Freq: Status: Active Protocol: Activity Type Activity Date Activity User E-Sign Co-Sign Detail Recorded Client Recorded Date Recorded By Document 03/29/18 08:32 DV [id number] 03/29/18 08:35 DV Document 04/05/18 08:23 DV [id number] 04/05/18 08:24 DV 03/29/18 04/05/18 08:32 08:23 Wound Center Nurse 2 #3 right cook -Time 08:33 08:23 -Correct Patient Yes Yes -Correct Side, Site, Position Yes Yes -Correct Procedure Yes Yes -Procedure Performed Yes Yes -Type of Procedure Debridement Debridement -Clinical Debridement Subcutaneous Subcutaneous -Post Debridement Size (cm) - Length 5.0 2.5 -Post Debridement Size (cm) - Width 2.5 1.9 -Post Debridement Size (cm) - Depth 0.2 0.1 -Total Square Cm 12.50 4.75 -Wound/Ulcer Outcome Not Healed Not Healed -Ulcer Cleansing Rinsed/ Rinsed/ Irrigated with Irrigated with Saline Saline -Foul Odor after Cleansing No No -Bioengineered Tissue No No -Bleeding Controlled with Pressure Pressure -Offloading No No -Treatment Response Procedure Procedure Tolerated Well Tolerated Well Pain Scale: 0-10 Numeric Is Patient Pain Free? Yes Yes Laterality: Right - Anterior tibial surface Type of Debridement: Excisional debridement Anesthesia Used: 5% Lidocaine Gel Depth: Down to and including healthy tissue, in the subcutaneous layer Percentage of wound debrided: 100 Instrument Used: 5mm curette Severity: Fat Layer Exposed Amount of bleeding with debridement: Mild Bleeding Controlled with: Compression and gauze Patient tolerated procedure well Assessment/Plan Active Problems Wound of right leg (Chronic) Chronic venous insufficiency (Chronic) Venous hypertension of right lower extremity (Chronic) Swelling of right lower extremity (Chronic) Edema of right lower extremity (Chronic) Hyperpigmentation (Chronic) Venous hypertension, chronic, with ulcer and inflammation (Chronic) Venous stasis ulcer (Chronic) Varicose veins with ulcer and inflammation (Chronic) Assessment: This is a 63-year-old male with stigmata of chronic venous disease. He presented with a wound on the right anterior tibial surface, which appeared to be related to recent trauma. Physical examination reveals stigmata of chronic venous insufficiency and venous hypertension. Recent arterial study suggests relatively normal arterial status in the lower extremities bilaterally. A venous duplex examination reveals incompetence of the right great saphenous vein, the right small saphenous vein, the right accessory saphenous vein, and a route relief driver located 11 cm proximal to the right medial malleolus. The patient has undergone laboratory studies on 01/04/2018, the results of which have been reviewed. Are as follows: Glucose 87, BUN 16, creatinine 0.98, total protein 7.7, albumin 3.7, calcium 8.7, AST 29, alkaline phosphatase 72, ALT 33, total bilirubin 0.80, sodium 139, potassium 4.6, chloride 104, serum prealbumin 23.9, white blood count 6.8, hemoglobin 14.0, hematocrit 41.7, platelets 199,000. Significant progress has been noted in the last week, with the continued implementation of conservative treatment measures and Ashley applied topically. Plan: Conservative treatment measures are to be continued, and the patient is to redouble his efforts at conservative treatment. Leg elevation has been recommended. The patient indicates that he sleeps in an upright position, and the practice which has been discouraged. The patient has been advised to sleep on a flat mattress, with legs level with his heart. He has been encouraged to elevate his lower extremities as much as possible, even during daytime hours. His legs are to be elevated to heart level, or higher. Prolonged idle sitting has been discouraged. Activity has been encouraged. The patient's current weight appears to be reasonable. Compression is to be continued by means of graduated compression stockings of 20-30 mmHg compression, which the patient has obtained, and is wearing daily. We are to use Ashley applied topically every day. The patient is a candidate for endovenous ablation of the incompetent superficial veins in the right lower extremity. The nature of the procedure has been discussed with the patient in detail, once again including indications and risks, expectations, etc. The indications and risks of endovenous laser ablation of the incompetent superficial veins of the right lower extremity have been discussed with the patient thoroughly once again. The expected benefits have been thoroughly explained. While the patient may not elect to undergo the procedure in the short-term future, he wishes to preauthorization, so scheduling of the endothermal ablation procedure can proceed at a convenient time in the [id number] future. Patient will return in 1 week for reassessment. Influenza vaccine was not administered today. The patient is not a smoker. The patient weighs 220 pounds. He stands 6 feet 1 inch tall. His BMI is 28.6. His places him in an overweight category. Mild weight loss has been recommended, with collaboration from his primary care physician.
[2018-04-12 08:20] VITALS: BP 142/84; PULSE 75; RESP 16; TEMP 36.4; BMI 28.6
--- NOTE | 2018-04-12 08:49 | PCM.WC.HP ---
(1) Wound of right leg Status: Chronic Current Visit: Yes Qualifiers: Encounter type: subsequent encounter Code(s): S81.801A - Unspecified open wound, right lower leg, initial encounter (2) Chronic venous insufficiency Status: Chronic Current Visit: Yes Code(s): I87.2 - Venous insufficiency (chronic) (peripheral) (3) Venous hypertension of right lower extremity Status: Chronic Current Visit: Yes Code(s): I87.301 - Chronic venous hypertension (idiopathic) without complications of right lower extremity (4) Hypertension Status: Chronic Current Visit: No Code(s): I10 - Essential (primary) hypertension (5) Atrial fibrillation Status: Chronic Current Visit: No Code(s): I48.91 - Unspecified atrial fibrillation (6) Hyperlipidemia Status: Chronic Current Visit: No Code(s): E78.5 - Hyperlipidemia, unspecified (7) Swelling of right lower extremity Status: Chronic Current Visit: Yes Code(s): M79.89 - Other specified soft tissue disorders (8) Edema of right lower extremity Status: Chronic Current Visit: Yes Code(s): R60.0 - Localized edema (9) History of mitral valve replacement Status: Chronic Current Visit: No Code(s): Z95.2 - Presence of prosthetic heart valve (10) Hyperpigmentation Status: Chronic Current Visit: Yes Code(s): L81.9 - Disorder of pigmentation, unspecified (11) Venous hypertension, chronic, with ulcer and inflammation Status: Chronic Current Visit: Yes Qualifiers: Laterality: right Code(s): I87.339 - Chronic venous hypertension (idiopathic) with ulcer and inflammation of unspecified lower extremity; L97.909 - Non-pressure chronic ulcer of unspecified part of unspecified lower leg with unspecified severity (12) Venous stasis ulcer Status: Chronic Current Visit: Yes Qualifiers: Venous stasis ulcer site: calf Laterality: right Non-pressure ulcer stage: with fat layer exposed Code(s): I83.009 - Varicose veins of unspecified lower extremity with ulcer of unspecified site; L97.909 - Non-pressure chronic ulcer of unspecified part of unspecified lower leg with unspecified severity (13) Varicose veins with ulcer and inflammation Status: Chronic Current Visit: Yes Code(s): I83.209 - Varicose veins of unspecified lower extremity with both ulcer of unspecified site and inflammation; L97.909 - Non-pressure chronic ulcer of unspecified part of unspecified lower leg with unspecified severity History of Present Illness Chief Complaint: Traumatic wound of the right anterior tibial surface, having occurred approximately 3-4 weeks prior to presentation History of Wound: This is a 63-year-old male who presented with a traumatic wound of the right anterior tibial surface. The patient indicates that he traumatized the right anterior tibial surface approximately 3-4 weeks prior to presentation, resulting in an open wound. He has been self treating. Approximately 4-5 days prior to presentation, very profuse bleeding occurred from the site, prompting him to seek medical attention at the emergency department at [facility]. The patient was placed on Keflex 500 mg p.o. 4 times daily, and referred for further evaluation and management. 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 He denies a history of thrombophlebitis in the past. He has previously been treated for an ulceration on the right anterior tibial surface. He claims to have swelling in his right lower extremity, worse at the end of the day. He sleeps in a chair, with his legs in a dependent position. He has stigmata of chronic venous insufficiency, with large, bulging varicosities in his right lower extremity, as well as areas of hyperpigmentation on the right anterior tibial surface and near the right medial malleolus. There is a healed venous ulceration near the right medial malleolus. Past Medical History Past Medical History: Chronic Problems Wound of right leg (Chronic) Chronic venous insufficiency (Chronic) Venous hypertension of right lower extremity (Chronic) Varicose veins with inflammation (Chronic) Hypertension (Chronic) Atrial fibrillation (Chronic) Hyperlipidemia (Chronic) Swelling of right lower extremity (Chronic) Edema of right lower extremity (Chronic) History of mitral valve replacement (Chronic) Hyperpigmentation (Chronic) Venous hypertension, chronic, with ulcer and inflammation (Chronic) Venous stasis ulcer (Chronic) Varicose veins with ulcer and inflammation (Chronic) Surgical History: - - Patient has previously undergone mitral valve replacement. Home Medications: Ambulatory Orders Medication Instructions Recorded Amoxicillin/Potassium Clav [Amox 1 each PO BID 06/20/14 Tr-K Clv 500-125 mg Tab] Losartan Potassium [Cozaar] 100 mg PO DAILY 06/20/14 - Family History Paternal - - The patient's father at the age of 74 with a history of chronic obstructive pulmonary disease. The patient's mother at age of 83 with a history of chronic obstructive pulmonary disease. Smoking Status: Never smoker Tobacco Use: Non-smoker Review of Systems Constitutional: Denies: Chills, Fever, Weight Change Eyes: Denies: Pain, Vision Change HEENT: Denies: Difficulty Hearing, Difficulty Swallowing, Sinus Congestion Cardiovascular: Denies: Chest Pain, Palpitations Respiratory: Denies: Cough, Shortness of Breath Gastrointestinal: Denies: Diarrhea, Nausea, Vomiting Genitourinary: Denies: Dysuria, Hematuria Endocrine: Denies: Heat/ Cold Intolerance, Polydipsia, Polyuria Hematologic/ Lymphatic: Denies: Easy Bruising, Easy Bleeding - Physical Exam Vital Signs Temp Pulse Resp BP 97.5 F L 75 16 142/84 H 04/12/18 08:20 04/12/18 08:20 04/12/18 08:20 04/12/18 08:20 General: Alert, Oriented x3, Cooperative, No apparent distress, Well developed, Well nourished HEENT: Atraumatic, PERRLA, EOMI, Normocephalic Oral: Moist Mucosa Neck: No JVD Lungs: Normal air movement Abdomen: Non-Distended Extremities: No clubbing, No cyanosis, No Calf Tenderness, - - There is very slight swelling and edema in the right lower extremity. The varicose veins in the distal calf are slightly prominent. The chronic skin changes persist, namely hyperpigmentation near the right medial malleolus and on the right and her tibial surface. The ulceration on the right anterior tibial surface is very superficial. It appears to be progressing and diminishing in size. There is no sign of infection or cellulitis. Dimensions are documented elsewhere. There is a small amount of bioburden Skin: No rashes Wound Measurements and Assessment WC - Nurse 1 - General Ulcer Measurement Start: 03/29/18 08:07 Freq: Status: Active Protocol: Activity Type Activity Date Activity User E-Sign Co-Sign Detail Recorded Client Recorded Date Recorded By Document 04/12/18 08:20 AN [id number] 04/12/18 08:25 AN 04/12/18 08:20 Wound Center Nurse 1 [Ulcer Assessment] #3 right cook -Current Size (cm) - Length 1.5 -Current Size (cm) - Width 0.7 -Current Size (cm) - Depth 0.1 -Total Square Cm 1.05 -Photo Taken No -Epithelialization Small 1-33% -Tunneling No -Undermining/Tunneling No -Circular Undermining No -Classification - Thickness Full Thickness without Exposed Support Structure -Exudate Amt Small -Exudate Type Serosanguineous -Wound Margin Flat & Intact -Granulation Amt Large (67-100%) -Granulation Quality Red -Necrosis Amt Small (1-33%) -Necrotic Tissue Type Adherent Slough -Texture (Yaquelin-wound Skin Appearance) Assessed -Moisture (Yaquelin-wound Skin Appearance Assessed ) -Color (Yaquelin-wound Skin Appearance) Assessed Erythema -Temperature (Yaquelin-wound Skin No Abnormality Appearance) (Pt Warm) -Tenderness on Palpation (Yaquelin-wound No Skin Appearance) -Ulcer Cleansing Rinsed/ Irrigated with Saline -Foul Odor after Cleansing No -Anesthetic Used 4% Lidocaine Solution [Edema Assessment] -Right Calf (cm) 41.1 -Right Ankle (cm) 24.6 WC - Nurse 2 - General Ulcer CM Notes Start: 03/29/18 08:07 Freq: Status: Active Protocol: Activity Type Activity Date Activity User E-Sign Co-Sign Detail Recorded Client Recorded Date Recorded By Document 04/12/18 08:35 DV [id number] 04/12/18 08:46 DV 04/12/18 08:35 Wound Center Nurse 2 [Procedure/Treatment] #3 right cook -Time 08:35 -Correct Patient Yes -Correct Side, Site, Position Yes -Correct Procedure Yes -Procedure Performed Yes -Type of Procedure Debridement -Clinical Debridement Subcutaneous -Post Debridement Size (cm) - Length 1.6 -Post Debridement Size (cm) - Width 0.6 -Post Debridement Size (cm) - Depth 0.1 -Total Square Cm 0.96 -Wound/Ulcer Outcome Not Healed -Ulcer Cleansing Rinsed/ Irrigated with Saline -Foul Odor after Cleansing No -Bioengineered Tissue No -Bleeding Controlled with Pressure -Offloading No -Treatment Response Procedure Tolerated Well [See Physician Procedure note for Specifics] Pain Scale: 0-10 Numeric [Pain] -Is Patient Pain Free? Yes Musculoskeletal: No Muscle Wasting Neurological: Cranial nerves II-XII grossly intact, Neuro grossly intact Psych/Mental Status: Normal Affect, Appropriate, Alert and oriented to time, place, person, mood and affect Debridement Note Post-Debridement Measurements/Treatment WC - Nurse 2 - General Ulcer CM Notes Start: 03/29/18 08:07 Freq: Status: Active Protocol: Activity Type Activity Date Activity User E-Sign Co-Sign Detail Recorded Client Recorded Date Recorded By Document 03/29/18 08:32 DV [id number] 03/29/18 08:35 DV Document 04/05/18 08:23 DV [id number] 04/05/18 08:24 DV Document 04/12/18 08:35 DV [id number] 04/12/18 08:46 DV 03/29/18 04/05/18 04/12/18 08:32 08:23 08:35 Wound Center Nurse 2 #3 right cook -Time 08:33 08:23 08:35 -Correct Patient Yes Yes Yes -Correct Side, Site, Position Yes Yes Yes -Correct Procedure Yes Yes Yes -Procedure Performed Yes Yes Yes -Type of Procedure Debridement Debridement Debridement -Clinical Debridement Subcutaneous Subcutaneous Subcutaneous -Post Debridement Size (cm) - Length 5.0 2.5 1.6 -Post Debridement Size (cm) - Width 2.5 1.9 0.6 -Post Debridement Size (cm) - Depth 0.2 0.1 0.1 -Total Square Cm 12.50 4.75 0.96 -Wound/Ulcer Outcome Not Healed Not Healed Not Healed -Ulcer Cleansing Rinsed/ Rinsed/ Rinsed/ Irrigated with Irrigated with Irrigated with Saline Saline Saline -Foul Odor after Cleansing No No No -Bioengineered Tissue No No No -Bleeding Controlled with Pressure Pressure Pressure -Offloading No No No -Treatment Response Procedure Procedure Procedure Tolerated Well Tolerated Well Tolerated Well Pain Scale: 0-10 Numeric Is Patient Pain Free? Yes Yes Yes Laterality: Right - Anterior tibial surface Type of Debridement: Excisional debridement Anesthesia Used: 5% Lidocaine Gel Depth: Down to and including healthy tissue, in the subcutaneous layer Percentage of wound debrided: 100 Instrument Used: 5mm curette Severity: Fat Layer Exposed Amount of bleeding with debridement: Mild Bleeding Controlled with: Compression and gauze Patient tolerated procedure well Assessment/Plan Active Problems Wound of right leg (Chronic) Chronic venous insufficiency (Chronic) Venous hypertension of right lower extremity (Chronic) Swelling of right lower extremity (Chronic) Edema of right lower extremity (Chronic) Hyperpigmentation (Chronic) Venous hypertension, chronic, with ulcer and inflammation (Chronic) Venous stasis ulcer (Chronic) Varicose veins with ulcer and inflammation (Chronic) Assessment: This is a 63-year-old male with stigmata of chronic venous disease. He presented with a wound on the right anterior tibial surface, which appeared to be related to recent trauma. Physical examination reveals stigmata of chronic venous insufficiency and venous hypertension. Recent arterial study suggests relatively normal arterial status in the lower extremities bilaterally. A venous duplex examination reveals incompetence of the right great saphenous vein, the right small saphenous vein, the right accessory saphenous vein, and a district plant supervisor located 11 cm proximal to the right medial malleolus. The patient has undergone laboratory studies on 01/04/2018, the results of which have been reviewed. Are as follows: Glucose 87, BUN 16, creatinine 0.98, total protein 7.7, albumin 3.7, calcium 8.7, AST 29, alkaline phosphatase 72, ALT 33, total bilirubin 0.80, sodium 139, potassium 4.6, chloride 104, serum prealbumin 23.9, white blood count 6.8, hemoglobin 14.0, hematocrit 41.7, platelets 199,000. Significant progress has been noted in the last week, with the continued implementation of conservative treatment measures and Ashley applied topically. Plan: Conservative treatment measures are to be continued, and the patient is to redouble his efforts at conservative treatment. Leg elevation has been recommended. The patient indicates that he sleeps in an upright position, and the practice which has been discouraged. The patient has been advised to sleep on a flat mattress, with legs level with his heart. He has been encouraged to elevate his lower extremities as much as possible, even during daytime hours. His legs are to be elevated to heart level, or higher. Prolonged idle sitting has been discouraged. Activity has been encouraged. The patient's current weight appears to be reasonable. Compression is to be continued by means of graduated compression stockings of 20-30 mmHg compression, which the patient has obtained, and is wearing daily. We are to use Ashley applied topically every day. The patient is a candidate for endovenous ablation of the incompetent superficial veins in the right lower extremity. It appears as though he is a candidate for endovenous laser ablation of the right great saphenous vein, the right accessory saphenous vein, the right small saphenous vein, and a district plant supervisor vein located 11 cm proximal to the right medial malleolus. The nature of the procedure has been discussed with the patient in detail, once again including indications and risks, expectations, etc. The indications and risks of endovenous laser ablation of the incompetent superficial veins of the right lower extremity have been discussed with the patient thoroughly. The expected benefits have been thoroughly explained. While the patient may not elect to undergo the procedure in the short-term future, he wishes to preauthorization, so scheduling of the endothermal ablation procedure can proceed at a convenient time in the [id number] future. Patient will return in 2 weeks for reassessment. Influenza vaccine was not administered today. The patient is not a smoker. The patient weighs 220 pounds. He stands 6 feet 1 inch tall. His BMI is 28.6. His places him in an overweight category. Mild weight loss has been recommended, with collaboration from his primary care physician.
== END 2018-04-21 23:59 ==
LOC: WC 08:00
PROVIDERS: Family Provider Family Medicine; PCP Family Medicine; Referring Provider Surgery; Visit Provider Surgery
DX: S81.831A Puncture wound without foreign body, right lower leg, initial encounter (principal); I10 Essential (primary) hypertension; I48.2 Chronic atrial fibrillation; E78.5 Hyperlipidemia, unspecified; M79.89 Other specified soft tissue disorders; R60.0 Localized edema; Z95.2 Presence of prosthetic heart valve; I83.11 Varicose veins of right lower extremity with inflammation
CPT/HCPCS: 11042

== ENCOUNTER 2018-05-17 08:00 | Outpatient (RCR) | payer BC, SELFPAY ==
[2018-04-22 01:19] VITALS: BP 142/84; PULSE 75; RESP 16; TEMP 36.4
[2018-04-26 08:05] VITALS: BP 152/89; PULSE 81; RESP 16; TEMP 36.3; BMI 28.6
--- NOTE | 2018-04-26 08:38 | HP.PCM_ITS ---
(1) Wound of right leg Status: Chronic Current Visit: Yes Qualifiers: Encounter type: subsequent encounter Code(s): S81.801A - Unspecified open wound, right lower leg, initial encounter (2) Chronic venous insufficiency Status: Chronic Current Visit: Yes Code(s): I87.2 - Venous insufficiency (chronic) (peripheral) (3) Venous hypertension of right lower extremity Status: Chronic Current Visit: Yes Code(s): I87.301 - Chronic venous hypertension (idiopathic) without complications of right lower extremity (4) Varicose veins with inflammation Status: Chronic Current Visit: Yes Code(s): I83.10 - Varicose veins of unspecified lower extremity with inflammation (5) Hypertension Status: Chronic Current Visit: No Code(s): I10 - Essential (primary) hypertension (6) Atrial fibrillation Status: Chronic Current Visit: No Code(s): I48.91 - Unspecified atrial fibrillation (7) Hyperlipidemia Status: Chronic Current Visit: No Code(s): E78.5 - Hyperlipidemia, unspecified (8) Swelling of right lower extremity Status: Chronic Current Visit: Yes Code(s): M79.89 - Other specified soft tissue disorders (9) Edema of right lower extremity Status: Chronic Current Visit: Yes Code(s): R60.0 - Localized edema (10) History of mitral valve replacement Status: Chronic Current Visit: No Code(s): Z95.2 - Presence of prosthetic heart valve (11) Hyperpigmentation Status: Chronic Current Visit: No Code(s): L81.9 - Disorder of pigmentation, unspecified (12) Venous hypertension, chronic, with ulcer and inflammation Status: Chronic Current Visit: Yes Qualifiers: Laterality: right Code(s): I87.339 - Chronic venous hypertension (idiopathic) with ulcer and inflammation of unspecified lower extremity; L97.909 - Non-pressure chronic ulcer of unspecified part of unspecified lower leg with unspecified severity (13) Venous stasis ulcer Status: Chronic Current Visit: Yes Qualifiers: Venous stasis ulcer site: calf Code(s): I83.009 - Varicose veins of unspecified lower extremity with ulcer of unspecified site; L97.909 - Non-pressure chronic ulcer of unspecified part of unspecified lower leg with unspecified severity (14) Varicose veins with ulcer and inflammation Status: Chronic Current Visit: Yes Code(s): I83.209 - Varicose veins of unspecified lower extremity with both ulcer of unspecified site and inflammation; L97.909 - Non-pressure chronic ulcer of unspecified part of unspecified lower leg with unspecified severity History of Present Illness Chief Complaint: Traumatic wound of the right anterior tibial surface, having occurred approximately 3-4 weeks prior to presentation History of Wound: This is a 63-year-old male who presented with a traumatic wound of the right anterior tibial surface. The patient indicates that he traumatized the right anterior tibial surface approximately 3-4 weeks prior to presentation, resulting in an open wound. He has been self treating. Approximately 4-5 days prior to presentation, very profuse bleeding occurred from the site, prompting him to seek medical attention at the emergency department at [facility]. The patient was placed on Keflex 500 mg p.o. 4 times daily, and referred for further evaluation and management. 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 He denies a history of thrombophlebitis in the past. He has previously been treated for an ulceration on the right anterior tibial surface. He claims to have swelling in his right lower extremity, worse at the end of the day. He sleeps in a chair, with his legs in a dependent position. He has stigmata of chronic venous insufficiency, with large, bulging varicosities in his right lower extremity, as well as areas of hyperpigmentation on the right anterior tibial surface and near the right medial malleolus. There is a healed venous ulceration near the right medial malleolus. Past Medical History Past Medical History: Chronic Problems Wound of right leg (Chronic) Chronic venous insufficiency (Chronic) Venous hypertension of right lower extremity (Chronic) Varicose veins with inflammation (Chronic) Hypertension (Chronic) Atrial fibrillation (Chronic) Hyperlipidemia (Chronic) Swelling of right lower extremity (Chronic) Edema of right lower extremity (Chronic) History of mitral valve replacement (Chronic) Hyperpigmentation (Chronic) Venous hypertension, chronic, with ulcer and inflammation (Chronic) Venous stasis ulcer (Chronic) Varicose veins with ulcer and inflammation (Chronic) Surgical History: - - Patient has previously undergone mitral valve replacement. Home Medications: Ambulatory Orders Medication Instructions Recorded Amoxicillin/Potassium Clav [Amox 1 each PO BID 06/20/14 Tr-K Clv 500-125 mg Tab] Losartan Potassium [Cozaar] 100 mg PO DAILY 06/20/14 - Family History Paternal - - The patient's father at the age of 74 with a history of chronic obstructive pulmonary disease. The patient's mother at age of 83 with a history of chronic obstructive pulmonary disease. Smoking Status: Never smoker Tobacco Use: Non-smoker Review of Systems Constitutional: Denies: Chills, Fever, Weight Change Eyes: Denies: Pain, Vision Change HEENT: Denies: Difficulty Hearing, Difficulty Swallowing, Sinus Congestion Cardiovascular: Denies: Chest Pain, Palpitations Respiratory: Denies: Cough, Shortness of Breath Gastrointestinal: Denies: Diarrhea, Nausea, Vomiting Genitourinary: Denies: Dysuria, Hematuria Endocrine: Denies: Heat/ Cold Intolerance, Polydipsia, Polyuria Hematologic/ Lymphatic: Denies: Easy Bruising, Easy Bleeding - Physical Exam Vital Signs Temp Pulse Resp BP 97.3 F L 81 16 152/89 H 04/26/18 08:05 04/26/18 08:05 04/26/18 08:05 04/26/18 08:05 General: Alert, Oriented x3, Cooperative, No apparent distress, Well developed, Well nourished HEENT: Atraumatic, PERRLA, EOMI, Normocephalic Oral: Moist Mucosa Neck: No JVD Lungs: Normal air movement Abdomen: Non-Distended Extremities: No clubbing, No cyanosis, No Calf Tenderness, - - Minimal swelling and edema is noted in the right lower extremity. Circumference measurements are documented elsewhere. Venous stasis dermatitis is noted to involve the right anterior tibial surface. The venous stasis ulceration is now nearly totally healed. It is now very superficial. Dimensions are documented elsewhere. There is no sign of infection or cellulitis. There is a large amount of sloughing epidermal tissue, leaving healed epidermis in its week. Wound Measurements and Assessment WC - Nurse 1 - General Ulcer Measurement Start: 04/26/18 08:05 Freq: Status: Active Protocol: Activity Type Activity Date Activity User E-Sign Co-Sign Detail Recorded Client Recorded Date Recorded By Document 04/26/18 08:05 AN [id number] 04/26/18 08:14 AN 04/26/18 08:05 Wound Center Nurse 1 [Ulcer Assessment] #3 right cook -Current Size (cm) - Length 4.6 -Current Size (cm) - Width 2.4 -Current Size (cm) - Depth 0.1 -Total Square Cm 11.04 -Photo Taken No -Epithelialization Small 1-33% -Tunneling No -Undermining/Tunneling No -Circular Undermining No -Classification - Thickness Full Thickness without Exposed Support Structure -Exudate Amt Small -Exudate Type Serosanguineous -Wound Margin Flat & Intact -Necrosis Amt Medium (34-66%) -Necrotic Tissue Type Adherent Slough -Structure Exposed N/A -Texture ([place]-wound Skin Appearance) Assessed Localized Edema -Moisture ([place]-wound Skin Appearance Assessed ) Dry/Scaly -Color ([place]-wound Skin Appearance) Erythema -Temperature ([place]-wound Skin No Abnormality Appearance) (Pt Warm) -Tenderness on Palpation ([place]-wound No Skin Appearance) -Ulcer Cleansing Rinsed/ Irrigated with Saline -Foul Odor after Cleansing No -Anesthetic Used 4% Lidocaine Solution [Edema Assessment] -Right Calf (cm) 41.4 -Right Ankle (cm) 25.6 WC - Nurse 2 - General Ulcer CM Notes Start: 04/26/18 08:05 Freq: Status: Active Protocol: Activity Type Activity Date Activity User E-Sign Co-Sign Detail Recorded Client Recorded Date Recorded By Document 04/26/18 08:25 DV [id number] 04/26/18 08:30 DV 04/26/18 08:25 Wound Center Nurse 2 [Procedure/Treatment] #3 right cook -Time 08:27 -Correct Patient Yes -Correct Side, Site, Position Yes -Correct Procedure Yes -Procedure Performed Yes -Type of Procedure Debridement -Clinical Debridement Subcutaneous -Post Debridement Size (cm) - Length 0.2 -Post Debridement Size (cm) - Width 0.2 -Post Debridement Size (cm) - Depth 0.1 -Total Square Cm 0.04 -Wound/Ulcer Outcome Not Healed -Ulcer Cleansing Rinsed/ Irrigated with Saline -Foul Odor after Cleansing No -Bioengineered Tissue No -Bleeding Controlled with Pressure -Offloading No -Treatment Response Procedure Tolerated Well [See Physician Procedure note for Specifics] Pain Scale: 0-10 Numeric [Pain] -Is Patient Pain Free? Yes Musculoskeletal: No Muscle Wasting Neurological: Cranial nerves II-XII grossly intact, Neuro grossly intact Psych/Mental Status: Normal Affect, Appropriate, Alert and oriented to time, place, person, mood and affect Debridement Note Post-Debridement Measurements/Treatment WC - Nurse 2 - General Ulcer CM Notes Start: 04/26/18 08:05 Freq: Status: Active Protocol: Activity Type Activity Date Activity User E-Sign Co-Sign Detail Recorded Client Recorded Date Recorded By Document 04/26/18 08:25 DV [id number] 04/26/18 08:30 DV 04/26/18 08:25 Wound Center Nurse 2 #3 right cook -Time 08:27 -Correct Patient Yes -Correct Side, Site, Position Yes -Correct Procedure Yes -Procedure Performed Yes -Type of Procedure Debridement -Clinical Debridement Subcutaneous -Post Debridement Size (cm) - Length 0.2 -Post Debridement Size (cm) - Width 0.2 -Post Debridement Size (cm) - Depth 0.1 -Total Square Cm 0.04 -Wound/Ulcer Outcome Not Healed -Ulcer Cleansing Rinsed/ Irrigated with Saline -Foul Odor after Cleansing No -Bioengineered Tissue No -Bleeding Controlled with Pressure -Offloading No -Treatment Response Procedure Tolerated Well Pain Scale: 0-10 Numeric Is Patient Pain Free? Yes Laterality: Right - Anterior tibial surface Type of Debridement: Selective debridement Anesthesia Used: 5% Lidocaine Gel Depth: Down to and including healthy tissue Percentage of wound debrided: 100 Instrument Used: 5mm curette Severity: Limited To Skin Breakdown Amount of bleeding with debridement: Mild Bleeding Controlled with: Compression and gauze Patient tolerated procedure well Assessment/Plan Active Problems Wound of right leg (Chronic) Chronic venous insufficiency (Chronic) Venous hypertension of right lower extremity (Chronic) Varicose veins with inflammation (Chronic) Swelling of right lower extremity (Chronic) Edema of right lower extremity (Chronic) Venous hypertension, chronic, with ulcer and inflammation (Chronic) Venous stasis ulcer (Chronic) Varicose veins with ulcer and inflammation (Chronic) Assessment: This is a 63-year-old male with stigmata of chronic venous disease. He presented with a wound on the right anterior tibial surface, which appeared to be related to recent trauma. Physical examination reveals stigmata of chronic venous insufficiency and venous hypertension. Recent arterial study suggests relatively normal arterial status in the lower extremities bilaterally. A venous duplex examination reveals incompetence of the right great saphenous vein, the right small saphenous vein, the right accessory saphenous vein, and a steel pourer helper located 11 cm proximal to the right medial malleolus. The patient has undergone laboratory studies on 01/04/2018, the results of which have been reviewed. Are as follows: Glucose 87, BUN 16, creatinine 0.98, total protein 7.7, albumin 3.7, calcium 8.7, AST 29, alkaline phosphatase 72, ALT 33, total bilirubin 0.80, sodium 139, potassium 4.6, chloride 104, serum prealbumin 23.9, white blood count 6.8, hemoglobin 14.0, hematocrit 41.7, platelets 199,000. Significant progress has been noted in the last several weeks. Plan: Conservative treatment measures are to be continued, and the patient is to continue in his efforts at conservative treatment. Leg elevation has been encouraged. The patient has been advised to sleep on a flat mattress, with legs level with his heart. He has been encouraged to elevate his lower extremities as much as possible, even during daytime hours. His legs are to be elevated to heart level, or higher. Prolonged idle sitting has been discouraged. Activity has been encouraged. The patient's current weight appears to be reasonable. Compression is to be continued by means of graduated compression stockings of 20-30 mmHg compression, which the patient has obtained, and is wearing daily. We are to continue using Adaptic topically, applied every day. Every other day, the patient will also use collagen hydrogel topically as well. We refrain from using collagen hydrogel daily, as this has previously caused some maceration of the ulcerated area. The patient is a candidate for endovenous ablation of the incompetent superficial veins in the right lower extremity. It appears as though he is a candidate for endovenous laser ablation of the right great saph enous vein, the right accessory saphenous vein, the right small saphenous vein, and a steel pourer helper vein located 11 cm proximal to the right medial malleolus. The nature of the procedure has been discussed with the patient in detail, once again including indications and risks, expectations, etc. The indications and risks of endovenous laser ablation of the incompetent superficial veins of the right lower extremity have been discussed with the patient thoroughly. The expected benefits have been thoroughly explained. While the patient may not elect to undergo the procedure in the short-term future, he wishes to preauthorization, so scheduling of the endothermal ablation procedure can proceed at a convenient time in the [id number] future. Patient will return in 3 weeks for reassessment. Influenza vaccine was not administered today. The patient is not a smoker. The patient weighs 220 pounds. He stands 6 feet 1 inch tall. His BMI is 28.6. His places him in an overweight category. Mild weight loss has been recommended, with collaboration from his primary care physician.
[2018-05-17 08:09] VITALS: BP 151/92; PULSE 71; RESP 16; TEMP 36.5; BMI 28.6
--- NOTE | 2018-05-17 08:38 | PCM.WC.HP ---
(1) Wound of right leg Status: Chronic Current Visit: Yes Qualifiers: Encounter type: subsequent encounter Code(s): S81.801A - Unspecified open wound, right lower leg, initial encounter (2) Chronic venous insufficiency Status: Chronic Current Visit: Yes Code(s): I87.2 - Venous insufficiency (chronic) (peripheral) (3) Venous hypertension of right lower extremity Status: Chronic Current Visit: Yes Code(s): I87.301 - Chronic venous hypertension (idiopathic) without complications of right lower extremity (4) Varicose veins with inflammation Status: Chronic Current Visit: Yes Code(s): I83.10 - Varicose veins of unspecified lower extremity with inflammation (5) Hypertension Status: Chronic Current Visit: No Code(s): I10 - Essential (primary) hypertension (6) Atrial fibrillation Status: Chronic Current Visit: No Code(s): I48.91 - Unspecified atrial fibrillation (7) Hyperlipidemia Status: Chronic Current Visit: No Code(s): E78.5 - Hyperlipidemia, unspecified (8) Swelling of right lower extremity Status: Chronic Current Visit: Yes Code(s): M79.89 - Other specified soft tissue disorders (9) Edema of right lower extremity Status: Chronic Current Visit: Yes Code(s): R60.0 - Localized edema (10) History of mitral valve replacement Status: Chronic Current Visit: No Code(s): Z95.2 - Presence of prosthetic heart valve (11) Hyperpigmentation Status: Chronic Current Visit: No Code(s): L81.9 - Disorder of pigmentation, unspecified (12) Venous hypertension, chronic, with ulcer and inflammation Status: Chronic Current Visit: Yes Qualifiers: Laterality: right Code(s): I87.339 - Chronic venous hypertension (idiopathic) with ulcer and inflammation of unspecified lower extremity; L97.909 - Non-pressure chronic ulcer of unspecified part of unspecified lower leg with unspecified severity (13) Venous stasis ulcer Status: Chronic Current Visit: Yes Qualifiers: Venous stasis ulcer site: calf Code(s): I83.009 - Varicose veins of unspecified lower extremity with ulcer of unspecified site; L97.909 - Non-pressure chronic ulcer of unspecified part of unspecified lower leg with unspecified severity (14) Varicose veins with ulcer and inflammation Status: Chronic Current Visit: Yes Code(s): I83.209 - Varicose veins of unspecified lower extremity with both ulcer of unspecified site and inflammation; L97.909 - Non-pressure chronic ulcer of unspecified part of unspecified lower leg with unspecified severity History of Present Illness Chief Complaint: Traumatic wound of the right anterior tibial surface, having occurred approximately 3-4 weeks prior to presentation History of Wound: This is a 63-year-old male who presented with a traumatic wound of the right anterior tibial surface. The patient indicates that he traumatized the right anterior tibial surface approximately 3-4 weeks prior to presentation, resulting in an open wound. He has been self treating. Approximately 4-5 days prior to presentation, very profuse bleeding occurred from the site, prompting him to seek medical attention at the emergency department at [facility]. The patient was placed on Keflex 500 mg p.o. 4 times daily, and referred for further evaluation and management. 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 He denies a history of thrombophlebitis in the past. He has previously been treated for an ulceration on the right anterior tibial surface. He claims to have swelling in his right lower extremity, worse at the end of the day. He sleeps in a chair, with his legs in a dependent position. He has stigmata of chronic venous insufficiency, with large, bulging varicosities in his right lower extremity, as well as areas of hyperpigmentation on the right anterior tibial surface and near the right medial malleolus. There is a healed venous ulceration near the right medial malleolus. Past Medical History Past Medical History: Chronic Problems Wound of right leg (Chronic) Chronic venous insufficiency (Chronic) Venous hypertension of right lower extremity (Chronic) Varicose veins with inflammation (Chronic) Hypertension (Chronic) Atrial fibrillation (Chronic) Hyperlipidemia (Chronic) Swelling of right lower extremity (Chronic) Edema of right lower extremity (Chronic) History of mitral valve replacement (Chronic) Hyperpigmentation (Chronic) Venous hypertension, chronic, with ulcer and inflammation (Chronic) Venous stasis ulcer (Chronic) Varicose veins with ulcer and inflammation (Chronic) Surgical History: - - Patient has previously undergone mitral valve replacement. Home Medications: Ambulatory Orders Medication Instructions Recorded Amoxicillin/Potassium Clav [Amox 1 each PO BID 06/20/14 Tr-K Clv 500-125 mg Tab] Losartan Potassium [Cozaar] 100 mg PO DAILY 06/20/14 - Family History Paternal - - The patient's father at the age of 74 with a history of chronic obstructive pulmonary disease. The patient's mother at age of 83 with a history of chronic obstructive pulmonary disease. Smoking Status: Never smoker Tobacco Use: Non-smoker Review of Systems Constitutional: Denies: Chills, Fever, Weight Change Eyes: Denies: Pain, Vision Change HEENT: Denies: Difficulty Hearing, Difficulty Swallowing, Sinus Congestion Cardiovascular: Denies: Chest Pain, Palpitations Respiratory: Denies: Cough, Shortness of Breath Gastrointestinal: Denies: Diarrhea, Nausea, Vomiting Genitourinary: Denies: Dysuria, Hematuria Endocrine: Denies: Heat/ Cold Intolerance, Polydipsia, Polyuria Hematologic/ Lymphatic: Denies: Easy Bruising, Easy Bleeding - Physical Exam Vital Signs Temp Pulse Resp BP 97.7 F L 71 16 151/92 H 05/17/18 08:09 05/17/18 08:09 05/17/18 08:09 05/17/18 08:09 General: Alert, Oriented x3, Cooperative, No apparent distress, Well developed, Well nourished HEENT: Atraumatic, PERRLA, EOMI, Normocephalic Oral: Moist Mucosa Neck: No JVD Lungs: Normal air movement Abdomen: Non-Distended Extremities: No clubbing, No cyanosis, No edema, No Calf Tenderness, - - There is no significant swelling or edema in the right lower extremity. A healed venous ulcer remains near the right medial malleolus, associated with hyperpigmentation. The patient now presents with significant dermatitic changes and superficial excoriations on the right anterior tibial surface. There is no distinct open wound. No sign of infection or cellulitis. Wound Measurements and Assessment WC - Nurse 1 - General Ulcer Measurement Start: 04/26/18 08:05 Freq: Status: Active Protocol: Activity Type Activity Date Activity User E-Sign Co-Sign Detail Recorded Client Recorded Date Recorded By Document 05/17/18 08:09 BRITTNY [id number] 05/17/18 08:12 BRITTNY 05/17/18 08:09 Wound Center Nurse 1 [Ulcer Assessment] #3 Right Iyer -Combined with other wound No -Current Size (cm) - Length 7 -Current Size (cm) - Width 5 -Current Size (cm) - Depth 0.1 -Total Square Cm 35 -Photo Taken Yes -Epithelialization Small 1-33% -Tunneling No -Undermining/Tunneling No -Circular Undermining No -Exudate Amt Small -Exudate Type Serosanguineous -Wound Margin Flat & Intact -Granulation Amt Large (67-100%) -Granulation Quality Red -Slough/Fibrin Yes -Necrosis Amt Small (1-33%) -Necrotic Tissue Type Adherent Slough -Structure Exposed N/A -Texture (Yaquelin-wound Skin Appearance) Assessed Excoriation Localized Edema -Moisture ([place]-wound Skin Appearance Assessed ) Dry/Scaly -Color ([place]elin-wound Skin Appearance) Assessed Hemosiderin Staining -Temperature ([place]-wound Skin No Abnormality Appearance) (Pt Warm) -Tenderness on Palpation ([place]elin-wound No Skin Appearance) -Ulcer Cleansing Rinsed/ Irrigated with Saline -Foul Odor after Cleansing No -Anesthetic Used 4% Lidocaine Solution [Edema Assessment] -Lower Limb Edema Present Yes -Right Calf (cm) 40.5 -Right Ankle (cm) 24.4 WC - Nurse 2 - General Ulcer CM Notes Start: 04/26/18 08:05 Freq: Status: Active Protocol: Activity Type Activity Date Activity User E-Sign Co-Sign Detail Recorded Client Recorded Date Recorded By Document 05/17/18 08:26 DV [id number] 05/17/18 08:34 DV 05/17/18 08:26 Wound Center Nurse 2 [Procedure/Treatment] #3 Right Iyer -Time 08:26 -Correct Patient Yes -Correct Side, Site, Position Yes -Correct Procedure Yes -Procedure Performed No -Post Debridement Size (cm) - Length 0.1 -Post Debridement Size (cm) - Width 0.1 -Post Debridement Size (cm) - Depth 0.1 -Total Square Cm 0.01 -Wound/Ulcer Outcome Not Healed -Ulcer Cleansing Rinsed/ Irrigated with Saline -Foul Odor after Cleansing No -Bioengineered Tissue No -Bleeding Controlled with NA -Offloading No -Treatment Response Procedure Tolerated Well [See Physician Procedure note for Specifics] Pain Scale: 0-10 Numeric [Pain] -Is Patient Pain Free? Yes Musculoskeletal: No Muscle Wasting Neurological: Cranial nerves II-XII grossly intact, Neuro grossly intact Psych/Mental Status: Normal Affect, Appropriate, Alert and oriented to time, place, person, mood and affect Debridement Note Post-Debridement Measurements/Treatment WC - Nurse 2 - General Ulcer CM Notes Start: 04/26/18 08:05 Freq: Status: Active Protocol: Activity Type Activity Date Activity User E-Sign Co-Sign Detail Recorded Client Recorded Date Recorded By Document 04/26/18 08:25 DV [id number] 04/26/18 08:30 DV Document 05/17/18 08:26 DV [id number] 05/17/18 08:34 DV 04/26/18 05/17/18 08:25 08:26 Wound Center Nurse 2 #3 Right Iyer -Time 08:27 08:26 -Correct Patient Yes Yes -Correct Side, Site, Position Yes Yes -Correct Procedure Yes Yes -Procedure Performed Yes No -Type of Procedure Debridement -Clinical Debridement Subcutaneous -Post Debridement Size (cm) - Length 0.2 0.1 -Post Debridement Size (cm) - Width 0.2 0.1 -Post Debridement Size (cm) - Depth 0.1 0.1 -Total Square Cm 0.04 0.01 -Wound/Ulcer Outcome Not Healed Not Healed -Ulcer Cleansing Rinsed/ Rinsed/ Irrigated with Irrigated with Saline Saline -Foul Odor after Cleansing No No -Bioengineered Tissue No No -Bleeding Controlled with Pressure NA -Offloading No No -Treatment Response Procedure Procedure Tolerated Well Tolerated Well Pain Scale: 0-10 Numeric Is Patient Pain Free? Yes Yes No debridement was completed today Assessment/Plan Active Problems Wound of right leg (Chronic) Chronic venous insufficiency (Chronic) Venous hypertension of right lower extremity (Chronic) Varicose veins with inflammation (Chronic) Swelling of right lower extremity (Chronic) Edema of right lower extremity (Chronic) Venous hypertension, chronic, with ulcer and inflammation (Chronic) Venous stasis ulcer (Chronic) Varicose veins with ulcer and inflammation (Chronic) Assessment: This is a 63-year-old male with stigmata of chronic venous disease. He presented with a wound on the right anterior tibial surface, which appeared to be related to recent trauma. Physical examination reveals stigmata of chronic venous insufficiency and venous hypertension. Recent arterial study suggests relatively normal arterial status in the lower extremities bilaterally. A venous duplex examination reveals incompetence of the right great saphenous vein, the right small saphenous vein, the right accessory saphenous vein, and a veterinary technology instructor located 11 cm proximal to the right medial malleolus. The patient has undergone laboratory studies on 01/04/2018, the results of which have been reviewed. Are as follows: Glucose 87, BUN 16, creatinine 0.98, total protein 7.7, albumin 3.7, calcium 8.7, AST 29, alkaline phosphatase 72, ALT 33, total bilirubin 0.80, sodium 139, potassium 4.6, chloride 104, serum prealbumin 23.9, white blood count 6.8, hemoglobin 14.0, hematocrit 41.7, platelets 199,000. White, there is significant tightness affecting the right anterior tibial surface. This appears to be related to the patient's venous disease. Plan: Conservative treatment measures are to be continued, and the patient is to continue in his efforts at conservative treatment. Leg elevation has been encouraged. The patient has been advised to sleep on a flat mattress, with legs level with his heart. He has been encouraged to elevate his lower extremities as much as possible, even during daytime hours. His legs are to be elevated to heart level, or higher. Prolonged idle sitting has been discouraged. Activity has been encouraged. The patient's current weight appears to be reasonable. We are to implement the use of an Unna boot, which will be applied today. The Unna boot will provide compression, as well as zinc oxide as a means to address the dermatitis involving the distal right lower extremity. The Unna boot will be changed twice weekly. The patient will return in 1 week for reassessment. The patient is a candidate for endovenous ablation of the incompetent superficial veins in the right lower extremity. It appears as though he is a candidate for endovenous laser ablation of the right great saphenous vein, the right accessory saphenous vein, the right small saphenous vein, and a veterinary technology instructor vein located 11 cm proximal to the right medial malleolus. The nature of the procedure has been discussed with the patient in detail once again, including indications and risks, expectations, etc. The indications and risks of endovenous laser ablation of the incompetent superficial veins of the right lower extremity have been discussed with the patient thoroughly. The expected benefits have been thoroughly explained. The patient wishes to seek preauthorization, so scheduling of the endothermal ablation procedure can proceed at a convenient time in the [id number] future. Patient will return in 1 week for reassessment. Influenza vaccine was not administered today. The patient is not a smoker. The patient weighs 220 pounds. He stands 6 feet 1 inch tall. His BMI is 28.6. His places him in an overweight category. Mild weight loss has been recommended, with collaboration from his primary care physician.
== END 2018-05-19 23:59 ==
LOC: WC 08:00
PROVIDERS: Family Provider Family Medicine; PCP Family Medicine; Referring Provider Surgery; Visit Provider Surgery
DX: S80.811A Abrasion, right lower leg, initial encounter (principal); X58.XXXA Exposure to other specified factors, initial encounter; I10 Essential (primary) hypertension; I83.11 Varicose veins of right lower extremity with inflammation; E78.5 Hyperlipidemia, unspecified; Z95.2 Presence of prosthetic heart valve; R60.0 Localized edema; M79.89 Other specified soft tissue disorders; I48.2 Chronic atrial fibrillation
CPT/HCPCS: 29580; 97597; 99213; G0463

== ENCOUNTER 2018-06-07 08:00 | Outpatient (RCR) | payer BC, SELFPAY ==
[2018-05-20 01:02] VITALS: BP 151/92; PULSE 71; RESP 16; TEMP 36.5
[2018-05-20 09:07] VITALS: BP 151/81; PULSE 76; RESP 18; TEMP 36.5; BMI 28.6
[2018-05-24 08:16] VITALS: BP 143/85; PULSE 78; RESP 18; TEMP 36.9; BMI 28.6
--- NOTE | 2018-05-24 08:41 | HP.PCM_ITS ---
(1) Wound of right leg Status: Chronic Current Visit: Yes Qualifiers: Encounter type: subsequent encounter Code(s): S81.801A - Unspecified open wound, right lower leg, initial encounter (2) Chronic venous insufficiency Status: Chronic Current Visit: Yes Code(s): I87.2 - Venous insufficiency (chronic) (peripheral) (3) Venous hypertension of right lower extremity Status: Chronic Current Visit: Yes Code(s): I87.301 - Chronic venous hypertension (idiopathic) without complications of right lower extremity (4) Varicose veins with inflammation Status: Chronic Current Visit: Yes Code(s): I83.10 - Varicose veins of unspecified lower extremity with inflammation (5) Hypertension Status: Chronic Current Visit: No Code(s): I10 - Essential (primary) hypertension (6) Atrial fibrillation Status: Chronic Current Visit: No Code(s): I48.91 - Unspecified atrial fibrillation (7) Hyperlipidemia Status: Chronic Current Visit: No Code(s): E78.5 - Hyperlipidemia, unspecified (8) Swelling of right lower extremity Status: Chronic Current Visit: Yes Code(s): M79.89 - Other specified soft tissue disorders (9) Edema of right lower extremity Status: Chronic Current Visit: Yes Code(s): R60.0 - Localized edema (10) History of mitral valve replacement Status: Chronic Current Visit: No Code(s): Z95.2 - Presence of prosthetic heart valve (11) Hyperpigmentation Status: Chronic Current Visit: Yes Code(s): L81.9 - Disorder of pigmentation, unspecified (12) Venous hypertension, chronic, with ulcer and inflammation Status: Chronic Current Visit: Yes Qualifiers: Laterality: right Code(s): I87.339 - Chronic venous hypertension (idiopathic) with ulcer and inflammation of unspecified lower extremity; L97.909 - Non-pressure chronic ulcer of unspecified part of unspecified lower leg with unspecified severity (13) Venous stasis ulcer Status: Chronic Current Visit: Yes Qualifiers: Venous stasis ulcer site: calf Code(s): I83.009 - Varicose veins of unspecified lower extremity with ulcer of unspecified site; L97.909 - Non-pressure chronic ulcer of unspecified part of unspecified lower leg with unspecified severity (14) Varicose veins with ulcer and inflammation Status: Chronic Current Visit: Yes Code(s): I83.209 - Varicose veins of unspecified lower extremity with both ulcer of unspecified site and inflammation; L97.909 - Non-pressure chronic ulcer of unspecified part of unspecified lower leg with unspecified severity History of Present Illness Chief Complaint: Traumatic wound of the right anterior tibial surface, having occurred approximately 3-4 weeks prior to presentation History of Wound: This is a 63-year-old male who presented with a traumatic wound of the right anterior tibial surface. The patient indicates that he traumatized the right anterior tibial surface approximately 3-4 weeks prior to presentation, resulting in an open wound. He has been self treating. Approximately 4-5 days prior to presentation, very profuse bleeding occurred from the site, prompting him to seek medical attention at the emergency department at [facility]. The patient was placed on Keflex 500 mg p.o. 4 times daily, and referred for further evaluation and management. 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 He denies a history of thrombophlebitis in the past. He has previously been treated for an ulceration on the right anterior tibial surface. He claims to have swelling in his right lower extremity, worse at the end of the day. He sleeps in a chair, with his legs in a dependent position. He has stigmata of chronic venous insufficiency, with large, bulging varicosities in his right lower extremity, as well as areas of hyperpigmentation on the right anterior tibial surface and near the right medial malleolus. There is a healed venous ulceration near the right medial malleolus. Past Medical History Past Medical History: Chronic Problems Wound of right leg (Chronic) Chronic venous insufficiency (Chronic) Venous hypertension of right lower extremity (Chronic) Varicose veins with inflammation (Chronic) Hypertension (Chronic) Atrial fibrillation (Chronic) Hyperlipidemia (Chronic) Swelling of right lower extremity (Chronic) Edema of right lower extremity (Chronic) History of mitral valve replacement (Chronic) Hyperpigmentation (Chronic) Venous hypertension, chronic, with ulcer and inflammation (Chronic) Venous stasis ulcer (Chronic) Varicose veins with ulcer and inflammation (Chronic) Surgical History: - - Patient has previously undergone mitral valve replacement. Home Medications: Ambulatory Orders Medication Instructions Recorded Amoxicillin/Potassium Clav [Amox 1 each PO BID 06/20/14 Tr-K Clv 500-125 mg Tab] Losartan Potassium [Cozaar] 100 mg PO DAILY 06/20/14 - Family History Paternal - - The patient's father at the age of 74 with a history of chronic obstructive pulmonary disease. The patient's mother at age of 83 with a history of chronic obstructive pulmonary disease. Smoking Status: Never smoker Tobacco Use: Non-smoker Review of Systems Constitutional: Denies: Chills, Fever, Weight Change Eyes: Denies: Pain, Vision Change HEENT: Denies: Difficulty Hearing, Difficulty Swallowing, Sinus Congestion Cardiovascular: Denies: Chest Pain, Palpitations Respiratory: Denies: Cough, Shortness of Breath Gastrointestinal: Denies: Diarrhea, Nausea, Vomiting Genitourinary: Denies: Dysuria, Hematuria Endocrine: Denies: Heat/ Cold Intolerance, Polydipsia, Polyuria Hematologic/ Lymphatic: Denies: Easy Bruising, Easy Bleeding - Physical Exam Vital Signs Temp Pulse Resp BP 98.4 F 78 18 143/85 H 05/24/18 08:16 05/24/18 08:16 05/24/18 08:16 05/24/18 08:16 General: Alert, Oriented x3, Cooperative, No apparent distress, Well developed, Well nourished HEENT: Atraumatic, PERRLA, EOMI, Normocephalic Oral: Moist Mucosa Neck: No JVD Lungs: Normal air movement Abdomen: Non-Distended Extremities: No clubbing, No cyanosis, No edema, No Calf Tenderness, - - The swelling and edema in the right lower extremity appears to be well controlled. There is very little or no swelling or edema noted. The ulceration/wound of the right lower extremity appears to be essentially healed. The entire site is epithelialized. However, there is a shiny, reflective component to the epithelialized tissue, somewhat unusual in appearance. There is no obvious sign of infection or cellulitis. Dimensions are documented elsewhere. Wound Measurements and Assessment WC - Nurse 1 - General Ulcer Measurement Start: 05/20/18 09:06 Freq: Status: Active Protocol: Activity Type Activity Date Activity User E-Sign Co-Sign Detail Recorded Client Recorded Date Recorded By Document 05/24/18 08:16 DL [id number] 05/24/18 08:25 DL 05/24/18 08:16 Wound Center Nurse 1 [Ulcer Assessment] #3 Right Iyer -Current Size (cm) - Length 8 -Current Size (cm) - Width 8.5 -Current Size (cm) - Depth 0.1 -Total Square Cm 68.0 -Photo Taken No -Exudate Amt Small -Exudate Type Serosanguineous -Wound Margin Indistinct, Non -Visible -Granulation Amt Large (67-100%) -Granulation Quality Red -Necrosis Amt None Present (0 %) -Structure Exposed Fat Layer Exposed -Texture (Yaquelin-wound Skin Appearance) Excoriation Scarring -Moisture (Yaquelin-wound Skin Appearance Dry/Scaly ) -Color (Yaquelin-wound Skin Appearance) Erythema Rubor -Temperature (Yaquelin-wound Skin No Abnormality Appearance) (Pt Warm) -Tenderness on Palpation (Yaquelin-wound No Skin Appearance) -Ulcer Cleansing Wound Cleanser -Foul Odor after Cleansing No -Anesthetic Used 4% Lidocaine Solution [Edema Assessment] -Right Calf (cm) 39.3 -Right Ankle (cm) 24 Musculoskeletal: No Muscle Wasting Neurological: Cranial nerves II-XII grossly intact, Neuro grossly intact Psych/Mental Status: Normal Affect, Appropriate, Alert and oriented to time, place, person, mood and affect Debridement Note No debridement was completed today - The patient's ulceration/wound appears to be essentially healed, though there is a slightly shiny appearance to the epithelialized portion of the site. Because of the apparent healed nature of the area, a debridement was not performed. Assessment/Plan Active Problems Wound of right leg (Chronic) Chronic venous insufficiency (Chronic) Venous hypertension of right lower extremity (Chronic) Varicose veins with inflammation (Chronic) Swelling of right lower extremity (Chronic) Edema of right lower extremity (Chronic) Hyperpigmentation (Chronic) Venous hypertension, chronic, with ulcer and inflammation (Chronic) Venous stasis ulcer (Chronic) Varicose veins with ulcer and inflammation (Chronic) Assessment: This is a 63-year-old male with stigmata of chronic venous disease. He presented with a wound on the right anterior tibial surface, which appeared to be related to recent trauma. Physical examination reveals stigmata of chronic venous insufficiency and venous hypertension. He has a healed venous ulceration of the right medial malleolus, with scarring and hyperpigmentation in the area. Arterial study suggests relatively normal arterial status in the lower extremities bilaterally. A venous duplex examination reveals incompetence of the right great saphenous vein, the right small saphenous vein, the right accessory saphenous vein, and a shotblast operator located 11 cm proximal to the right medial malleolus. The patient has undergone laboratory studies on 01/04/2018, the results of which have been reviewed. Are as follows: Glucose 87, BUN 16, creatinine 0.98, total protein 7.7, albumin 3.7, calcium 8.7, AST 29, alkaline phosphatase 72, ALT 33, total bilirubin 0.80, sodium 139, potassium 4.6, c hloride 104, serum prealbumin 23.9, white blood count 6.8, hemoglobin 14.0, hematocrit 41.7, platelets 199,000. Plan: Conservative treatment measures are to be continued, and the patient is to continue in his efforts at conservative treatment. Leg elevation has been encouraged. The patient has been advised to sleep on a flat mattress, with legs level with his heart. He has been encouraged to elevate his lower extremities as much as possible, even during daytime hours. His legs are to be elevated to heart level, or higher. Prolonged idle sitting and standing has been discouraged. Activity has been encouraged. The patient's current weight appears to be reasonable. We are to implement the use of an a 3M 2 layer compression wrap to the right lower extremity. Will provide the adequate level of compression, which will remain in place 24 hours a day. The patient will return twice weekly for reapplication of his 2 layer compression wrap. Collagen hydrogel will be used topically on the healing/healed areas, as well as Wound Veil. The patient will return in 1 week for reassessment. The patient is a candidate for endovenous ablation of the incompetent superficial veins in the right lower extremity. It appears as though he is a candidate for endovenous laser ablation of the right great saphenous vein, the right accessory saphenous vein, the right small saphenous vein, and a shotblast operator vein located 11 cm proximal to the right medial malleolus. The nature of the procedure has been discussed with the patient in detail once again, including indications and risks, expectations, etc. The indications and risks of endovenous laser ablation of the incompetent superficial veins of the right lower extremity have been discussed with the patient thoroughly. The expected benefits have been thoroughly explained. The patient wishes to seek preauthorization, so scheduling of the endothermal ablation procedure can proceed at a convenient time in the [id number] future. Patient will return in 1 week for reassessment. Influenza vaccine was not administered today. The patient is not a smoker. The patient weighs 220 pounds. He stands 6 feet 1 inch tall. His BMI is 28.6. His places him in an overweight category. Mild weight loss has been recommended, with collaboration from his primary care physician.
[2018-05-31 08:03] VITALS: BP 134/81; PULSE 83; RESP 20; TEMP 36.9; BMI 28.6
--- NOTE | 2018-05-31 08:27 | PCM.WC.HP ---
(1) Wound of right leg Status: Chronic Current Visit: Yes Qualifiers: Encounter type: subsequent encounter Code(s): S81.801A - Unspecified open wound, right lower leg, initial encounter (2) Chronic venous insufficiency Status: Chronic Current Visit: Yes Code(s): I87.2 - Venous insufficiency (chronic) (peripheral) (3) Venous hypertension of right lower extremity Status: Chronic Current Visit: Yes Code(s): I87.301 - Chronic venous hypertension (idiopathic) without complications of right lower extremity (4) Varicose veins with inflammation Status: Chronic Current Visit: Yes Code(s): I83.10 - Varicose veins of unspecified lower extremity with inflammation (5) Hypertension Status: Chronic Current Visit: No Code(s): I10 - Essential (primary) hypertension (6) Atrial fibrillation Status: Chronic Current Visit: No Code(s): I48.91 - Unspecified atrial fibrillation (7) Hyperlipidemia Status: Chronic Current Visit: No Code(s): E78.5 - Hyperlipidemia, unspecified (8) Swelling of right lower extremity Status: Chronic Current Visit: Yes Code(s): M79.89 - Other specified soft tissue disorders (9) Edema of right lower extremity Status: Chronic Current Visit: Yes Code(s): R60.0 - Localized edema (10) History of mitral valve replacement Status: Chronic Current Visit: No Code(s): Z95.2 - Presence of prosthetic heart valve (11) Hyperpigmentation Status: Chronic Current Visit: Yes Code(s): L81.9 - Disorder of pigmentation, unspecified (12) Venous hypertension, chronic, with ulcer and inflammation Status: Chronic Current Visit: Yes Qualifiers: Laterality: right Code(s): I87.339 - Chronic venous hypertension (idiopathic) with ulcer and inflammation of unspecified lower extremity; L97.909 - Non-pressure chronic ulcer of unspecified part of unspecified lower leg with unspecified severity (13) Venous stasis ulcer Status: Chronic Current Visit: Yes Qualifiers: Venous stasis ulcer site: calf Code(s): I83.009 - Varicose veins of unspecified lower extremity with ulcer of unspecified site; L97.909 - Non-pressure chronic ulcer of unspecified part of unspecified lower leg with unspecified severity (14) Varicose veins with ulcer and inflammation Status: Chronic Current Visit: Yes Code(s): I83.209 - Varicose veins of unspecified lower extremity with both ulcer of unspecified site and inflammation; L97.909 - Non-pressure chronic ulcer of unspecified part of unspecified lower leg with unspecified severity History of Present Illness Chief Complaint: Traumatic wound of the right anterior tibial surface, having occurred approximately 3-4 weeks prior to presentation History of Wound: This is a 63-year-old male who presented with a traumatic wound of the right anterior tibial surface. The patient indicates that he traumatized the right anterior tibial surface approximately 3-4 weeks prior to presentation, resulting in an open wound. He has been self treating. Approximately 4-5 days prior to presentation, very profuse bleeding occurred from the site, prompting him to seek medical attention at the emergency department at [facility]. The patient was placed on Keflex 500 mg p.o. 4 times daily, and referred for further evaluation and management. 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 He denies a history of thrombophlebitis in the past. He has previously been treated for an ulceration on the right anterior tibial surface. He claims to have swelling in his right lower extremity, worse at the end of the day. He sleeps in a chair, with his legs in a dependent position. He has stigmata of chronic venous insufficiency, with large, bulging varicosities in his right lower extremity, as well as areas of hyperpigmentation on the right anterior tibial surface and near the right medial malleolus. There is a healed venous ulceration near the right medial malleolus. Past Medical History Past Medical History: Chronic Problems Wound of right leg (Chronic) Chronic venous insufficiency (Chronic) Venous hypertension of right lower extremity (Chronic) Varicose veins with inflammation (Chronic) Hypertension (Chronic) Atrial fibrillation (Chronic) Hyperlipidemia (Chronic) Swelling of right lower extremity (Chronic) Edema of right lower extremity (Chronic) History of mitral valve replacement (Chronic) Hyperpigmentation (Chronic) Venous hypertension, chronic, with ulcer and inflammation (Chronic) Venous stasis ulcer (Chronic) Varicose veins with ulcer and inflammation (Chronic) Surgical History: - - Patient has previously undergone mitral valve replacement. Home Medications: Ambulatory Orders Medication Instructions Recorded Amoxicillin/Potassium Clav [Amox 1 each PO BID 06/20/14 Tr-K Clv 500-125 mg Tab] Losartan Potassium [Cozaar] 100 mg PO DAILY 06/20/14 - Family History Paternal - - The patient's father at the age of 74 with a history of chronic obstructive pulmonary disease. The patient's mother at age of 83 with a history of chronic obstructive pulmonary disease. Smoking Status: Never smoker Tobacco Use: Non-smoker Review of Systems Constitutional: Denies: Chills, Fever, Weight Change Eyes: Denies: Pain, Vision Change HEENT: Denies: Difficulty Hearing, Difficulty Swallowing, Sinus Congestion Cardiovascular: Denies: Chest Pain, Palpitations Respiratory: Denies: Cough, Shortness of Breath Gastrointestinal: Denies: Diarrhea, Nausea, Vomiting Genitourinary: Denies: Dysuria, Hematuria Endocrine: Denies: Heat/ Cold Intolerance, Polydipsia, Polyuria Hematologic/ Lymphatic: Denies: Easy Bruising, Easy Bleeding - Physical Exam Vital Signs Temp Pulse Resp BP 98.4 F 83 20 H 134/81 H 05/31/18 08:03 05/31/18 08:03 05/31/18 08:03 05/31/18 08:03 General: Alert, Oriented x3, Cooperative, No apparent distress, Well developed, Well nourished HEENT: Atraumatic, PERRLA, EOMI, Normocephalic Oral: Moist Mucosa Neck: No JVD Lungs: Normal air movement Abdomen: Non-Distended Extremities: No clubbing, No cyanosis, No edema, No Calf Tenderness, - - Chronic changes persist near the right medial malleolus. There is no open wound at this site, but very pronounced varicosities and brown hyperpigmentation. The ulceration/wound on the right anterior tibial surface appears to be generally healed. However, there is a very intense erythematous appearance to this area, rather extensive in extent, with areas of both shiny and dull reflectivity. However, the entire area appears to be epithelialized. Wound Measurements and Assessment WC - Nurse 1 - General Ulcer Measurement Start: 05/20/18 09:06 Freq: Status: Active Protocol: Activity Type Activity Date Activity User E-Sign Co-Sign Detail Recorded Client Recorded Date Recorded By Document 05/31/18 08:03 DL [id number] 05/31/18 08:13 DL 05/31/18 08:03 Wound Center Nurse 1 [Ulcer Assessment] 2-right medial cook -Current Size (cm) - Length 0.1 -Current Size (cm) - Width 0.1 -Current Size (cm) - Depth 0.1 -Total Square Cm 0.01 -Photo Taken No -Exudate Amt None Present -Wound Margin Flat & Intact -Granulation Amt None Present (0 %) -Slough/Fibrin No -Necrosis Amt None Present (0 %) -Structure Exposed N/A -Texture (Yaquelin-wound Skin Appearance) No Abnormality Scarring -Moisture (Yaquelin-wound Skin Appearance No Abnormality ) -Color (Yaquelin-wound Skin Appearance) No Abnormality -Temperature (Yaquelin-wound Skin No Abnormality Appearance) (Pt Warm) -Tenderness on Palpation (Yaquelin-wound No Skin Appearance) -Ulcer Cleansing Wound Cleanser -Foul Odor after Cleansing No 1. R Pretibia -Photo Taken No [Edema Assessment] -Right Calf (cm) 39 -Right Ankle (cm) 24 Musculoskeletal: No Muscle Wasting Neurological: Cranial nerves II-XII grossly intact, Neuro grossly intact Psych/Mental Status: Normal Affect, Appropriate, Alert and oriented to time, place, person, mood and affect Debridement Note No debridement was completed today Assessment/Plan Active Problems Wound of right leg (Chronic) Chronic venous insufficiency (Chronic) Venous hypertension of right lower extremity (Chronic) Varicose veins with inflammation (Chronic) Swelling of right lower extremity (Chronic) Edema of right lower extremity (Chronic) Hyperpigmentation (Chronic) Venous hypertension, chronic, with ulcer and inflammation (Chronic) Venous stasis ulcer (Chronic) Varicose veins with ulcer and inflammation (Chronic) Assessment: This is a 63-year-old male with stigmata of chronic venous disease. He presented with a wound on the right anterior tibial surface, which appeared to be related to recent trauma. Physical examination reveals stigmata of chronic venous insufficiency and venous hypertension. He has a healed venous ulceration of the right medial malleolus, with scarring and hyperpigmentation in the area. Arterial study suggests relatively normal arterial status in the lower extremities bilaterally. A venous duplex examination reveals incompetence of the right great saphenous vein, the right small saphenous vein, the right accessory saphenous vein, and a rfid manager located 11 cm proximal to the right medial malleolus. The patient has undergone laboratory studies on 01/04/2018, the results of which have been reviewed. Are as follows: Glucose 87, BUN 16, creatinine 0.98, total protein 7.7, albumin 3.7, calcium 8.7, AST 29, alkaline phosphatase 72, ALT 33, total bilirubin 0.80, sodium 139, potassium 4.6, chloride 104, serum prealbumin 23.9, white blood count 6.8, hemoglobin 14.0, hematocrit 41.7, platelets 199,000. The patient now has a rather extensive area of erythema on the right anterior tibial surface, though his ulceration/wound appears to be completely healed and epithelialized. 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 The patient has related some exudative drainage from the area, which has saturated his multilayer compression wrap, recently applied on a twice weekly basis. Plan: Conservative treatment measures are to be continued, and the patient is to continue in his efforts at conservative treatment. Leg elevation has been encouraged. The patient has been advised to sleep on a flat mattress, with legs level with his heart. He has been encouraged to elevate his lower extremities as much as possible, even during daytime hours. His legs are to be elevated to heart level, or higher. Prolonged idle sitting and standing has been discouraged. Activity has been encouraged. The patient's current weight appears to be reasonable. We have prescribed Lotrisone cream 1%, which is to be applied topically on a twice daily basis. Patient is to continue using his graduated compression stockings of 20-30 mmHg compression. Patient has been instructed to contact our facility if the erythema worsens. Otherwise, he will return in 1 week for reassessment. The patient is a candidate for endovenous ablation of the incompetent superficial veins in the right lower extremity. It appears as though he is a candidate for endovenous laser ablation of the right great saphenous vein, the right accessory saphenous vein, the right small saphenous vein, and a rfid manager vein located 11 cm proximal to the right medial malleolus. The nature of the procedure has been discussed with the patient in detail once again, including indications and risks, expectations, etc. The indications and risks of endovenous laser ablation of the incompetent superficial veins of the right lower extremity have been discussed with the patient thoroughly. The expected benefits have been thoroughly explained. The patient wishes to seek preauthorization, so scheduling of the endothermal ablation procedure can proceed at a convenient time in the [id number] future. It is anticipated that we will proceed with endothermal ablation of his incompetent right lower extremity veins once the apparent dermatomycosis in the right lower extremity has resolved. Influenza vaccine was not administered today. The patient is not a smoker. The patient weighs 220 pounds. He stands 6 feet 1 inch tall. His BMI is 28.6. His places him in an overweight category. Mild weight loss has been recommended, with collaboration from his primary care physician.
[2018-06-07 08:04] VITALS: BP 153/94; PULSE 82; RESP 16; TEMP 36.4; BMI 28.6
--- NOTE | 2018-06-07 08:21 | PCM.WC.HP ---
(1) Wound of right leg Status: Chronic Current Visit: Yes Qualifiers: Encounter type: subsequent encounter Code(s): S81.801A - Unspecified open wound, right lower leg, initial encounter (2) Chronic venous insufficiency Status: Chronic Current Visit: Yes Code(s): I87.2 - Venous insufficiency (chronic) (peripheral) (3) Venous hypertension of right lower extremity Status: Chronic Current Visit: Yes Code(s): I87.301 - Chronic venous hypertension (idiopathic) without complications of right lower extremity (4) Varicose veins with inflammation Status: Chronic Current Visit: Yes Code(s): I83.10 - Varicose veins of unspecified lower extremity with inflammation (5) Hypertension Status: Chronic Current Visit: No Code(s): I10 - Essential (primary) hypertension (6) Atrial fibrillation Status: Chronic Current Visit: No Code(s): I48.91 - Unspecified atrial fibrillation (7) Hyperlipidemia Status: Chronic Current Visit: No Code(s): E78.5 - Hyperlipidemia, unspecified (8) Swelling of right lower extremity Status: Chronic Current Visit: Yes Code(s): M79.89 - Other specified soft tissue disorders (9) Edema of right lower extremity Status: Chronic Current Visit: Yes Code(s): R60.0 - Localized edema (10) History of mitral valve replacement Status: Chronic Current Visit: No Code(s): Z95.2 - Presence of prosthetic heart valve (11) Hyperpigmentation Status: Chronic Current Visit: Yes Code(s): L81.9 - Disorder of pigmentation, unspecified (12) Venous hypertension, chronic, with ulcer and inflammation Status: Chronic Current Visit: Yes Qualifiers: Laterality: right Code(s): I87.339 - Chronic venous hypertension (idiopathic) with ulcer and inflammation of unspecified lower extremity; L97.909 - Non-pressure chronic ulcer of unspecified part of unspecified lower leg with unspecified severity (13) Venous stasis ulcer Status: Chronic Current Visit: Yes Qualifiers: Venous stasis ulcer site: calf Code(s): I83.009 - Varicose veins of unspecified lower extremity with ulcer of unspecified site; L97.909 - Non-pressure chronic ulcer of unspecified part of unspecified lower leg with unspecified severity (14) Varicose veins with ulcer and inflammation Status: Chronic Current Visit: Yes Code(s): I83.209 - Varicose veins of unspecified lower extremity with both ulcer of unspecified site and inflammation; L97.909 - Non-pressure chronic ulcer of unspecified part of unspecified lower leg with unspecified severity History of Present Illness Chief Complaint: Traumatic wound of the right anterior tibial surface, having occurred approximately 3-4 weeks prior to presentation History of Wound: This is a 63-year-old male who presented with a traumatic wound of the right anterior tibial surface. The patient indicates that he traumatized the right anterior tibial surface approximately 3-4 weeks prior to presentation, resulting in an open wound. He has been self treating. Approximately 4-5 days prior to presentation, very profuse bleeding occurred from the site, prompting him to seek medical attention at the emergency department at [facility]. The patient was placed on Keflex 500 mg p.o. 4 times daily, and referred for further evaluation and management. 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 He denies a history of thrombophlebitis in the past. He has previously been treated for an ulceration on the right anterior tibial surface. He claims to have swelling in his right lower extremity, worse at the end of the day. He sleeps in a chair, with his legs in a dependent position. He has stigmata of chronic venous insufficiency, with large, bulging varicosities in his right lower extremity, as well as areas of hyperpigmentation on the right anterior tibial surface and near the right medial malleolus. There is a healed venous ulceration near the right medial malleolus. Past Medical History Past Medical History: Chronic Problems Wound of right leg (Chronic) Chronic venous insufficiency (Chronic) Venous hypertension of right lower extremity (Chronic) Varicose veins with inflammation (Chronic) Hypertension (Chronic) Atrial fibrillation (Chronic) Hyperlipidemia (Chronic) Swelling of right lower extremity (Chronic) Edema of right lower extremity (Chronic) History of mitral valve replacement (Chronic) Hyperpigmentation (Chronic) Venous hypertension, chronic, with ulcer and inflammation (Chronic) Venous stasis ulcer (Chronic) Varicose veins with ulcer and inflammation (Chronic) Surgical History: - - Patient has previously undergone mitral valve replacement. Home Medications: Ambulatory Orders Medication Instructions Recorded Amoxicillin/Potassium Clav [Amox 1 each PO BID 06/20/14 Tr-K Clv 500-125 mg Tab] Losartan Potassium [Cozaar] 100 mg PO DAILY 06/20/14 - Family History Paternal - - The patient's father at the age of 74 with a history of chronic obstructive pulmonary disease. The patient's mother at age of 83 with a history of chronic obstructive pulmonary disease. Smoking Status: Never smoker Tobacco Use: Non-smoker Review of Systems Constitutional: Denies: Chills, Fever, Weight Change Eyes: Denies: Pain, Vision Change HEENT: Denies: Difficulty Hearing, Difficulty Swallowing, Sinus Congestion Cardiovascular: Denies: Chest Pain, Palpitations Respiratory: Denies: Cough, Shortness of Breath Gastrointestinal: Denies: Diarrhea, Nausea, Vomiting Genitourinary: Denies: Dysuria, Hematuria Endocrine: Denies: Heat/ Cold Intolerance, Polydipsia, Polyuria Hematologic/ Lymphatic: Denies: Easy Bruising, Easy Bleeding - Physical Exam Vital Signs Temp Pulse Resp BP 97.5 F L 82 16 153/94 H 06/07/18 08:04 06/07/18 08:04 06/07/18 08:04 06/07/18 08:04 General: Alert, Oriented x3, Cooperative, No apparent distress, Well developed, Well nourished HEENT: Atraumatic, PERRLA, EOMI, Normocephalic Oral: Moist Mucosa Neck: No JVD Lungs: Normal air movement Abdomen: Non-Distended Extremities: No clubbing, No cyanosis, No edema, No Calf Tenderness, - - There is no significant swelling or edema in the right lower extremity. Chronic varicosities persist. A healed ulceration is again noted near the right medial malleolus, with brown hyperpigmentation. There is persisting erythema on the right anterior tibial surface, though markedly improved over that which was noted 1 week ago. There are no open wounds or ulcerations. The erythema does not appear to be cellulitic in nature. Wound Measurements and Assessment WC - Nurse 1 - General Ulcer Measurement Start: 05/20/18 09:06 Freq: Status: Active Protocol: Activity Type Activity Date Activity User E-Sign Co-Sign Detail Recorded Client Recorded Date Recorded By Document 06/07/18 08:04 BRITTNY [id number] 06/07/18 08:06 BRITTNY 06/07/18 08:04 Wound Center Nurse 1 [Ulcer Assessment] 2-right medial cook -Combined with other wound No -Current Size (cm) - Length 0 -Current Size (cm) - Width 0 -Current Size (cm) - Depth 0 -Total Square Cm 0 -Photo Taken Yes -Epithelialization Large 67-100% -Tunneling No -Undermining/Tunneling No -Circular Undermining No -Color (Yaquelin-wound Skin Appearance) Hemosiderin Staining -Temperature (Yaquelin-wound Skin No Abnormality Appearance) (Pt Warm) -Tenderness on Palpation (Yaquelin-wound No Skin Appearance) [Edema Assessment] -Lower Limb Edema Present Yes -Right Calf (cm) 41.6 -Right Ankle (cm) 25.6 Neurological: Cranial nerves II-XII grossly intact, Neuro grossly intact Psych/Mental Status: Normal Affect, Appropriate, Alert and oriented to time, place, person, mood and affect Debridement Note Post-Debridement Measurements/Treatment WC - Nurse 2 - General Ulcer CM Notes Start: 05/20/18 09:06 Freq: Status: Active Protocol: Activity Type Activity Date Activity User E-Sign Co-Sign Detail Recorded Client Recorded Date Recorded By Document 05/31/18 08:24 DV [id number] 05/31/18 08:30 DV 05/31/18 08:24 Wound Center Nurse 2 2-right medial cook -Time 08:25 -Correct Patient Yes -Correct Side, Site, Position Yes -Procedure Performed No -Post Debridement Size (cm) - Length 0.1 -Post Debridement Size (cm) - Width 0.1 -Post Debridement Size (cm) - Depth 0.1 -Total Square Cm 0.01 -Wound/Ulcer Outcome Not Healed -Ulcer Cleansing Rinsed/ Irrigated with Saline -Foul Odor after Cleansing No -Bioengineered Tissue No -Bleeding Controlled with Pressure -Treatment Response Procedure Tolerated Well Pain Scale: 0-10 Numeric Is Patient Pain Free? Yes All ulcerations of the right lower extremity are now completely healed and epithelialized. No debridement was completed today Assessment/Plan Active Problems Wound of right leg (Chronic) Chronic venous insufficiency (Chronic) Venous hypertension of right lower extremity (Chronic) Varicose veins with inflammation (Chronic) Swelling of right lower extremity (Chronic) Edema of right lower extremity (Chronic) Hyperpigmentation (Chronic) Venous hypertension, chronic, with ulcer and inflammation (Chronic) Venous stasis ulcer (Chronic) Varicose veins with ulcer and inflammation (Chronic) Assessment: This is a 63-year-old male with stigmata of chronic venous disease. He presented with a wound on the right anterior tibial surface, which appeared to be related to recent trauma. Physical examination reveals stigmata of chronic venous insufficiency and venous hypertension. He has a healed venous ulceration of the right medial malleolus, with scarring and hyperpigmentation in the area. Arterial study suggests relatively normal arterial status in the lower extremities bilaterally. A venous duplex examination reveals incompetence of the right great saphenous vein, the right small saphenous vein, the right accessory saphenous vein, and a duplicating machine servicer located 11 cm proximal to the right medial malleolus. The ulcerations in the right lower extremity are now completely healed. 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 As result, the erythema and skin changes have markedly diminished. Plan: The patient is now completely healed and epithelialized. He is to be discharged, to be followed up henceforth on a as needed basis. Conservative treatment measures are to be continued, and the patient is to continue in his efforts at conservative treatment. Leg elevation has been encouraged. The patient has been advised to sleep on a flat mattress, with legs level with his heart. He has been encouraged to elevate his lower extremities as much as possible, even during daytime hours. His legs are to be elevated to heart level, or higher. Prolonged idle sitting and standing has been discouraged. Activity has been encouraged. The patient's current weight appears to be reasonable. We have prescribed Lotrisone cream 1%, which is to be applied topically on a twice daily basis for 1 more week. Patient is to continue wearing his graduated compression stockings of 20-30 mmHg compression. The patient is a candidate for endovenous ablation of the incompetent superficial veins in the right lower extremity. It appears as though he is a candidate for endovenous laser ablation of the right great saphenous vein, the right accessory saphenous vein, the right small saphenous vein, and a duplicating machine servicer vein located 11 cm proximal to the right medial malleolus. The nature of the procedure has been discussed with the patient in detail once again, including indications and risks, expectations, etc. The indications and risks of endovenous laser ablation of the incompetent superficial veins of the right lower extremity have been discussed with the patient thoroughly. The expected benefits have been thoroughly explained. The patient wishes to seek preauthorization, so scheduling of the endothermal ablation procedure can proceed at a convenient time in the [id number] future. We will now move forward with the scheduling of the patient's right lower extremity endovenous thermal ablation procedure. Influenza vaccine was not administered today. The patient is not a smoker. The patient weighs 220 pounds. He stands 6 feet 1 inch tall. His BMI is 28.6. His places him in an overweight category. Mild weight loss has been recommended, with collaboration from his primary care physician.
--- NOTE | 2018-06-26 11:21 | HP.PCM_ITS ---
Problem List (1) Wound of right leg Status: Chronic Qualifiers: Encounter type: subsequent encounter (2) Chronic venous insufficiency Status: Chronic (3) Venous hypertension of right lower extremity Status: Chronic (4) Varicose veins with inflammation Status: Chronic (5) Hypertension Status: Chronic (6) Atrial fibrillation Status: Chronic (7) Hyperlipidemia Status: Chronic (8) Swelling of right lower extremity Status: Chronic (9) Edema of right lower extremity Status: Chronic (10) History of mitral valve replacement Status: Chronic (11) Hyperpigmentation Status: Chronic (12) Venous hypertension, chronic, with ulcer and inflammation Status: Chronic Qualifiers: Laterality: right (13) Venous stasis ulcer Status: Chronic Qualifiers: Venous stasis ulcer site: calf (14) Varicose veins with ulcer and inflammation Status: Chronic History of Present Illness Date of Admission: 06/30/18 Chief Complaint: Chronic venous insufficiency, chronic venous hypertension, varicose veins with inflammation, swelling, edema, history of venous ulceration?right lower extremity The patient is a 63 year old M who has a long-standing history of chronic venous insufficiency, venous hypertension with inflammation, records veins with inflammation, swelling, edema, and prior venous stasis ulceration in the right lower extremity. Initially presented many months ago with a venous stasis ulceration in his right lower extremity, and was treated at the [facility] by conservative means, in an effort to minimize the swelling and edema in the right lower extremity, as well as to heal the ulceration in the right distal lower extremity. Healing of his venous ulceration was subsequently achieved approximately 1 month ago, and the patient has been discharged, with advisement to continue the conservative treatment measures which were previously implemented and treatment for his venous stasis ulceration. These measures have included, but are not limited to, leg elevation, avoidance of vital standing and sitting, graduated compression stockings of at least 20-30 mmHg compression, active lifestyle, weight control measures, and the use of anti-inflammatory medications as necessary. During the course of the patient's treatment, venous duplex examination was performed, which revealed incompetence of the right great saphenous vein, the right small saphenous vein, the right anterior accessory saphenous vein, and a right calf concaving machine operator vein located approximately 11 cm proximal to the right medial malleolus. In discussing the short and long-term management options with the patient, endothermal laser ablation of the incompetent superficial/concaving machine operator veins in the right lower extremity was discussed with the patient on many occasions, including the potential benefits, indications and risks, expectations, etc. While the patient has continued the conservative treatment measures which were recommended, he has elected to proceed with endovenous laser ablation of the incompetent superficial/concaving machine operator veins in the right lower extremity. His venous disease has had severe in adverse consequences relative to the patient's daily activities, quality of life, and job functions.] Past Medical History Past Medical History (Chronic Problems): Chronic Problems Wound of right leg (Chronic) Chronic venous insufficiency (Chronic) Venous hypertension of right lower extremity (Chronic) Varicose veins with inflammation (Chronic) Hypertension (Chronic) Atrial fibrillation (Chronic) Hyperlipidemia (Chronic) Swelling of right lower extremity (Chronic) Edema of right lower extremity (Chronic) History of mitral valve replacement (Chronic) Hyperpigmentation (Chronic) Venous hypertension, chronic, with ulcer and inflammation (Chronic) Venous stasis ulcer (Chronic) Varicose veins with ulcer and inflammation (Chronic) Allergies No Known Allergies Allergy (Verified 06/23/18 08:57) Home Medications: Ambulatory Orders Medication Instructions Recorded Losartan Potassium [Cozaar] 100 mg PO QHS 06/20/14 Amlodipine [Norvasc] 5 mg PO QHS 06/23/18 Rivaroxaban [Xarelto] 20 mg PO QHS 06/23/18 Sotalol HCl [Betapace AF (Beta 40 mg PO DAILY 06/23/18 Elizabeth)] Sotalol HCl [Betapace AF (Beta 80 mg PO QHS 06/23/18 Elizabeth)] Surgical History: - - Patient has previously undergone mitral valve replacement. Psychiatric History: No pertinent psych hx Lives: Spouse/ Significant Other Smoking Status: Never smoker Tobacco Use: Non-smoker Drugs: None - *Family History Paternal History Items: - - The patient's father at the age of 74 with a history of chronic obstructive pulmonary disease. The patient's mother at age of 83 with a history of chronic obstructive pulmonary disease. Review of Systems Constitutional: Denies: Chills, Fever, Weight Change HEENT: Denies: Head Aches, Sinus Congestion, Sinus Drainage Cardiovascular: Denies: Chest Pain, Palpitations Respiratory: Denies: Cough, Shortness of breath at rest, Sputum production Gastrointestinal: Denies: Abdominal Pain, Nausea, Vomiting Genitourinary: Denies: Dysuria Musculoskeletal: Denies: Joint Pain, Joint Tenderness Skin: Denies: Rash, Wounds Neurological: Denies: Numbness, Tingling, Focal weakness Psychiatric: Denies: Anxiety, Depression, Homicidal Ideations, Suicidal Ideations Hematologic/ Lymphatic: Denies: Easy Bruising, Easy Bleeding VTE Information - Inpt Only VTE Present on Admission: No VTE Mechan Device Prophylaxis: SCD's - Left VTE Pharm Prophylaxis ordered?: Yes - Physical Exam General: Alert, Oriented x3, Cooperative, No apparent distress, Well developed, Well nourished, - - The patient is of relatively normal body habitus HEENT: Atraumatic, PERRLA, EOMI, Normocephalic Oral: Moist Mucosa, No Gingival or Mucosal Lesions/ Ulcerations Neck: Supple, No JVD, Negative Carotid Bruits, Negative Hepatojugular Reflux, No Nodes, No Nuchal Rigidity, Trachea Midline Lungs: Clear to auscultation, Normal air movement, No rhonchi, No wheeze, No rales Cardiovascular: Normal S1, Normal S2, No murmurs Abdomen: Bowel Sounds Present, Soft, Non Tender, Non-Distended Extremities: No clubbing, No cyanosis, No edema, Capillary Refill Less than 3 Seconds, No Calf Tenderness - Chronic varicose veins are noted in the right lower extremity. A healed ulceration is noted near the right medial malleolus, with associated brown hyperpigmentation. There are currently no open wounds or ulcerations in the right lower extremity. Skin: No rashes, No breakdown Musculoskeletal: No Tenderness to Palpation of Joints or Extremities, No Muscle Wasting Neurological: Cranial nerves II-XII grossly intact, Neuro grossly intact Psych/Mental Status: Normal Affect, Appropriate, Alert and oriented to time, place, person, mood and affect Vital Signs Temp Pulse Resp BP 97.5 F L 82 16 153/94 H 06/07/18 08:04 06/07/18 08:04 06/07/18 08:04 06/07/18 08:04 Weight: 220 lb Body Mass Index (BMI) 28.6 Assessment/Plan This is a 63-year-old male with a long-standing history of chronic venous insufficiency, chronic venous hypertension, varicose veins with inflammation, swelling, and edema in the right lower extremity. He has a history of several venous stasis ulcerations in the right lower extremity. Most recently, the patient has been treated in the [facility] for a venous stasis ulceration in the distal right lower extremity. Healing was achieved over a several month. Using conservative treatment measures. During the course of the patient's treatment, venous duplex examination was performed, revealing incompetence of the right great saphenous vein, the right small saphenous vein, and accessory saphenous vein at the level of the sapheno-femoral junction, and an incompetent concaving machine operator vein approximately 11 cm proximal to the right medial malleolus. The patient has elected to proceed with endovenous laser ablation of the incompetent superficial/concaving machine operator veins in the right lower extremity. The indications and risks, expectations, and potential benefits have been discussed with the patient thoroughly on numerous occasions. The appropriate preprocedure consent process has been undertaken.
== END 2018-06-19 23:59 ==
LOC: WC 08:00
PROVIDERS: Family Provider Family Medicine; PCP Family Medicine; Referring Provider Surgery; Visit Provider Surgery
DX: S80.811A Abrasion, right lower leg, initial encounter (principal); X58.XXXA Exposure to other specified factors, initial encounter; I10 Essential (primary) hypertension; E78.5 Hyperlipidemia, unspecified; Z95.2 Presence of prosthetic heart valve; R60.0 Localized edema; M79.89 Other specified soft tissue disorders; I48.2 Chronic atrial fibrillation
CPT/HCPCS: 29580; 29581; 99212; 99213; G0463

== ENCOUNTER 2018-06-30 09:46 | Day surgery (SDC) | payer BC, SELFPAY ==
[2018-06-23 09:10] VITALS: BP 149/89; PULSE 66; RESP 16; TEMP 36.4; O2SAT 100; BMI 28.8
[2018-06-23 09:38] LABS: Hematocrit 44.3 % (40-54); Hemoglobin 14.7 g/dl (13.0-16.5); Mean Corp Hgb Conc 33.2 g/gl (32-36); Mean Corpuscular Hgb 30.8 pg (27.0-32.0); Mean Corpuscular Volume 92.7 fL (80-94); Mean Platelet Vol. 9.9 fl (6.2-12.0); Platelet Count 186 K/mm3 (150-450); RBC Distribution Width CV 12.7 % (11.6-14.6); RBC Distribution Width SD 42.7 fl (35.1-43.9); Red Blood Count 4.78 M/mm3 (4.6-6.2); Scan Indicated on CBC? Y/N NO; White Blood Count 4.6 K/mm3 (4.4-11.0)
[2018-06-23 09:49] LABS: Anion Gap 4 (5-15); BUN 18 mg/dL (7-18); BUN/Creat Ratio 15.4 RATIO (10-20); Chloride 104 mmol/L (98-107); Creatinine, Serum 1.17 mg/dL (0.70-1.30); EST Glomerular Filtration Rate 67 mL/min (>60); Est Glom Filt Rate - Afr Amer 81 mL/min (>60); Estimated Creatinine Clearance 73.98 ml/min; Glucose 100 mg/dL (74-106); Potassium 4.5 mmol/L (3.5-5.1); Sodium Level 138 mmol/L (136-145)
[2018-06-30] VITALS (7 sets, daily range): BP systolic 114–139; BP diastolic 71–94; PULSE 70–81; RESP 14–16; TEMP 36.4–36.6; O2SAT 92–100; BMI 28.8
[2018-06-30] MEDS: Cefazolin 2 GM in 0.9% Normal Saline 100 ML IV (11:11)
--- NOTE | 2018-06-30 13:34 | DCINST_ITS ---
Discharge Diet: No Restrictions Discharge Activity: May Not Drive May shower in (days): 2 Weight Bearing Status: Weight bearing as tolerated Lifting Restrictions: 10 pounds Keep extremity elevated above heart level: Right Leg Call your doctor if you observe: Inability to urinate, Shortness of breath, Fainting spells, Chest pain, Prolonged hiccoughing, Increased palpitations (irregular heartbeat), Uncontrolled pain Suture Line Care: Avoid Pulling/Pushing Remove Dressing in (days):: 2 - Then rewrap daily with William wrap from base of toes to upper thigh. Allergies/Adverse Reactions: Allergies No Known Allergies Allergy (Verified 06/23/18 08:57) Medications to take at Discharge Losartan Potassium [Cozaar] 100 mg PO QHS 06/20/14 Amlodipine [Norvasc] 5 mg PO QHS 06/23/18 Rivaroxaban [Xarelto] 20 mg PO QHS 06/23/18 Sotalol HCl [Betapace AF (Beta Elizabeth)] 40 mg PO DAILY 06/23/18 Sotalol HCl [Betapace AF (Beta Elizabeth)] 80 mg PO QHS 06/23/18 Primary Care Physician: Lavon Mc MD [Primary Care Provider] - Test Results: Test results from this visit will be discussed in further detail at your follow- up appointment, if applicable. Please Follow Up With: Dominick Gonzalez MD When: 10-14 days
--- NOTE | 2018-07-04 06:37 | PCM.OPRPT ---
Problem List (1) Venous hypertension, chronic, with inflammation Status: Chronic Qualifiers: Laterality: right Qualified Code(s): I87.321 - Chronic venous hypertension (idiopathic) with inflammation of right lower extremity (2) History of venous ulceration Status: Chronic (3) Chronic venous insufficiency Status: Chronic (4) Edema of right lower extremity Status: Chronic (5) Swelling of right lower extremity Status: Chronic (6) Varicose veins with inflammation Status: Chronic Report of Operation Date of Procedure: 06/30/18 Pre-Operative Diagnosis: Chronic venous insufficiency, chronic venous hypertension with inflammation, varicose veins with inflammation, swelling, edema, history of venous ulceration - Right lower extremity Post-Operative Diagnosis: Chronic venous insufficiency, chronic venous hypertension with inflammation, varicose veins with inflammation, swelling, edema, history of venous ulceration - Right lower extremity Surgery/Procedure Performed:: 1. Endovenous laser ablation of right great saphenous vein. 2. Endovenous laser ablation of right small saphenous vein. 3. Endovenous laser ablation of right anterior accessory saphenous vein. 4. 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 As a result of many months of conservative treatment measures, the patient's right lower extremity venous stasis ulceration eventually healed. Nonetheless, the patient continued to have profound symptoms related to his chronic right lower extremity venous disease, and manifestations of venous stasis dermatitis, lipodermatosclerosis, and hyperpigmentation. A preoperative venous duplex examination revealed segmental valvular incompetence involving the right great saphenous vein, right small saphenous vein, right anterior accessory saphenous vein, and an incompetent right calf bowling ball grader vein located 11 cm proximal to the right medial malleolus. The implications of the patient's diagnosis were discussed with the patient in detail. The options of management were fully explained. Conservative treatment measures had been implemented, but failed to alleviate the patient's symptoms and manifestations, which adversely affected his daily activities, quality of life, and job functions. The indications and risks of endovenous laser ablation of the right great saphenous vein, the right small saphenous vein, the right anterior accessory saphenous vein, and the incompetent right calf bowling ball grader vein were discussed with patient in detail. The appropriate preprocedure consent process was undertaken. The patient underwent ultrasound marking of the right great saphenous vein, the right small saphenous vein, right anterior accessory saphenous vein, and the right incompetent calf bowling ball grader vein preoperatively. He was then brought to the operating suite, placed supine upon the operating table, where general anesthesia was administered by the anesthesia staff. The patient's right lower extremity and right groin were prepped and draped in the appropriate sterile manner. The patient was placed in reverse Trendelenburg position. Ultrasonography was used to image the right great saphenous vein in the distal calf. The micropuncture technique was used to access the right great saphenous vein percutaneously in the distal calf, in the supramalleolar area. In this manner, a 0.018 inch guidewire was advanced intraluminally into the right great saphenous vein, and was visualized by ultrasonography. A micropuncture sheath was advanced over the guidewire. A 0.018 inch guidewire was exchanged for a 0.035 inch guidewire, which was then advanced intraluminally to a level just distal to the right sapheno?femoral junction, as confirmed by ultrasound imaging. A long 4 Filipino sheath was then advanced over the guidewire, and its tip was positioned approximately 2 cm distal to the right sapheno-femoral junction. Attention was then directed to the incompetent right small saphenous vein. To enhance exposure, the right lower extremity was placed in an externally rotated position with the right knee flexed. Using ultrasound imaging and the micropuncture technique, a micropuncture sheath was introduced intraluminally into the right small saphenous vein near the inferior border of the right gastrocnemius muscle, and was left in place, capped, for subsequent access purposes. Attention was then directed to the incompetent right anterior accessory saphenous vein. Using ultrasound imaging and the micropuncture technique, a micropuncture sheath was introduced intraluminally, and was left in place, capped, for subsequent access purposes. Attention was then directed to the incompetent right calf bowling ball grader vein, located approximately 11 cm proximal to the right medial malleolus. Using ultrasound imaging and the micropuncture technique, a micropuncture sheath was introduced into the incompetent bowling ball grader vein. The micropuncture sheath introduced was a 5 Filipino sheath, allowing for direct placement of the AngioDynamics laser fiber. With a micropuncture sheath in place, perivenous tumescent anesthesia was injected under ultrasound imaging. The patient was placed in Trendelenburg position, and the AngioDynamics laser fiber was introduced into the 5 Filipino sheath, intraluminally within the incompetent bowling ball grader vein. Ultrasound imaging was used to position the tip of the laser fiber in the desired location, superficial to the fascial level, and well away from the deep venous system. Under direct ultrasound visualization, the laser fiber was activated, and the laser fiber was slowly withdrawn, thereby ablating the incompetent bowling ball grader vein. The laser fiber was then removed, and manual pressure was used to achieve hemostasis. Attention was then redirected to the long 4 Filipino sheath which had been previously placed intraluminally within the right great saphenous vein. Perivenous tumescent anesthesia was injected from the 4 Filipino sheath exit site up to the right sapheno?femoral junction. This was performed segmentally using ultrasound imaging. The AngioDynamics laser fiber was then introduced into the 4 Filipino sheath and coupled appropriately. Ultrasonography was used to confirm that the tip of the laser fiber was positioned within the right great saphenous vein approximately 2-1/2 cm distal to the right sapheno?femoral junction. The patient was placed in Trendelenburg position and the laser fiber was activated. The AngioDynamics laser was slowly withdrawn at a constant rate throughout the length of the right great saphenous vein, thereby ablating the right great saphenous vein segmentally. The energy applied was approximately 60-80 J/cm. Following the laser ablation, the laser fiber and sheath were removed, and manual pressure was briefly applied to the percutaneous access site to achieve hemostasis. Attention was then directed to the incompetent right small saphenous vein, into which a micropuncture sheath had been previously placed. A 0.035 inch guidewire was introduced intraluminally, and its tip was positioned within the proximal portion of the right small saphenous vein. The long 4 Filipino sheath was then advanced over the guidewire, and into position intraluminally within the right small saphenous vein. Perivenous tumescent anesthesia was injected from the 4 Filipino sheath exit site up to the tip of the sheath within the proximal portion of the right small saphenous vein. This was performed segmentally using ultrasound imaging. The AngioD[employer] laser fiber was then introduced into the 4 Filipino sheath and coupled appropriately. Ultrasonography was used to confirm that the tip of the laser fiber was positioned within the proximal right small saphenous vein, several centimeters distal to its junction with the deep venous system, and remaining within the superficial portion of the right small saphenous vein. The patient was placed in Trendelenburg position and the laser fiber was activated. The AngioDynamics laser was slowly withdrawn at a constant rate throughout the length of the right small saphenous vein, thereby ablating the right small saphenous vein segmentally. The energy applied was approximately 60-80 J/cm. Following the laser ablation, the laser fiber and sheath were removed, and manual pressure was briefly applied to the percutaneous access site to achieve hemostasis. Attention was then redirected to the micropuncture sheath which had been previously placed intraluminally within the right anterior accessory saphenous vein. A 0.035 inch guidewire was introduced intraluminally over which the long 4 Filipino sheath was advanced. Perivenous tumescent anesthesia was then injected from the 4 Filipino sheath exit site up to the tip of the sheath in the proximal right anterior accessory saphenous vein. The AngioDynamics laser fiber was then introduced into the 4 Filipino sheath and coupled appropriately. Ultrasonography was used to confirm that the tip of the laser fiber was positioned within the proximal portion of the right anterior accessory saphenous vein, approximately 2 cm distal to its junction with the deep venous system. The patient was placed in Trendelenburg position and the laser fiber was activated. The AngioDynamics laser was slowly withdrawn at a constant rate throughout the length of the right anterior accessory saphenous vein, thereby ablating the vein segmentally. The energy applied was approximately 60-80 J/cm. Following the laser ablation, the laser fiber and sheath were removed, manual pressure was briefly applied to the percutaneous access site to achieve hemostasis. After assuring satisfactory hemostasis, the access sites were approximated using [place] and Steri-Strips. Dry sterile gauze dressings were applied over each of the access sites, and the leg was wrapped from the base of the toes to the upper thigh with Kerlix, followed by William wrap. The blood loss for the procedure was minimal. The sponge, needle, and instrument counts at the end of the procedure were correct. The patient tolerated the procedure well and was transported from the operating room to the postanesthesia care unit in stable condition. The amount of tumescent anesthesia utilized, number of joules applied, and treatment times were recorded elsewhere. - Complications None - Admit VTE Documentation VTE Present on Admission: No VTE Mechan Device Prophylaxis: SCD's - Left VTE Pharm Prophylaxis ordered?: Yes
--- NOTE | 2018-07-04 06:41 | OP.PCM_ITS ---
Problem List (1) Venous hypertension, chronic, with inflammation Status: Chronic Qualifiers: Laterality: right Qualified Code(s): I87.321 - Chronic venous hypertension (idiopathic) with inflammation of right lower extremity (2) History of venous ulceration Status: Chronic (3) Chronic venous insufficiency Status: Chronic (4) Edema of right lower extremity Status: Chronic (5) Swelling of right lower extremity Status: Chronic (6) Varicose veins with inflammation Status: Chronic Report of Operation Date of Procedure: 06/30/18 Pre-Operative Diagnosis: Chronic venous insufficiency, chronic venous hypertension with inflammation, varicose veins with inflammation, swelling, edema, history of venous ulceration - Right lower extremity Post-Operative Diagnosis: Chronic venous insufficiency, chronic venous hypertension with inflammation, varicose veins with inflammation, swelling, edema, history of venous ulceration - Right lower extremity Surgery/Procedure Performed:: 1. Endovenous laser ablation of right great saphenous vein. 2. Endovenous laser ablation of right small saphenous vein. 3. Endovenous laser ablation of right anterior accessory saphenous vein. 4. 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 As a result of many months of conservative treatment measures, the patient's right lower extremity venous stasis ulceration eventually healed. Nonetheless, the patient continued to have profound symptoms related to his chronic right lower extremity venous disease, and manifestations of venous stasis dermatitis, lipodermatosclerosis, and hyperpigmentation. A preoperative venous duplex examination revealed segmental valvular incompetence involving the right great saphenous vein, right small saphenous vein, right anterior accessory saphenous vein, and an incompetent right calf delicatessen department manager vein located 11 cm proximal to the right medial malleolus. The implications of the patient's diagnosis were discussed with the patient in detail. The options of management were fully explained. Conservative treatment measures had been implemented, but failed to alleviate the patient's symptoms and manifestations, which adversely affected his daily activities, quality of life, and job functions. The indications and risks of endovenous laser ablation of the right great saphenous vein, the right small saphenous vein, the right anterior accessory saphenous vein, and the incompetent right calf delicatessen department manager vein were discussed with patient in detail. The appropriate preprocedure consent process was undertaken. The patient underwent ultrasound marking of the right great saphenous vein, the right small saphenous vein, right anterior accessory saphenous vein, and the right incompetent calf delicatessen department manager vein preoperatively. He was then brought to the operating suite, placed supine upon the operating table, where general anesthesia was administered by the anesthesia staff. The patient's right lower extremity and right groin were prepped and draped in the appropriate sterile manner. The patient was placed in reverse Trendelenburg position. Ultrasonography was used to image the right great saphenous vein in the distal calf. The micropuncture technique was used to access the right great saphenous vein percutaneously in the distal calf, in the supramalleolar area. In this manner, a 0.018 inch guidewire was advanced intraluminally into the right great saphenous vein, and was visualized by ultrasonography. A micropuncture sheath was advanced over the guidewire. A 0.018 inch guidewire was exchanged for a 0.035 inch guidewire, which was then advanced intraluminally to a level just distal to the right sapheno?femoral junction, as confirmed by ultrasound imaging. A long 4 Estonian sheath was then advanced over the guidewire, and its tip was positioned approximately 2 cm distal to the right sapheno-femoral junction. Attention was then directed to the incompetent right small saphenous vein. To enhance exposure, the right lower extremity was placed in an externally rotated position with the right knee flexed. Using ultrasound imaging and the micropuncture technique, a micropuncture sheath was introduced intraluminally into the right small saphenous vein near the inferior border of the right gastrocnemius muscle, and was left in place, capped, for subsequent access purposes. Attention was then directed to the incompetent right anterior accessory saphenous vein. Using ultrasound imaging and the micropuncture technique, a micropuncture sheath was introduced intraluminally, and was left in place, capped, for subsequent access purposes. Attention was then directed to the incompetent right calf delicatessen department manager vein, located approximately 11 cm proximal to the right medial malleolus. Using ultrasound imaging and the micropuncture technique, a micropuncture sheath was introduced into the incompetent delicatessen department manager vein. The micropuncture sheath introduced was a 5 Estonian sheath, allowing for direct placement of the AngioDynamics laser fiber. With a micropuncture sheath in place, perivenous tumescent anesthesia was injected under ultrasound imaging. The patient was placed in Trendelenburg position, and the AngioDynamics laser fiber was introduced into the 5 Estonian sheath, intraluminally within the incompetent delicatessen department manager vein. Ultrasound imaging was used to position the tip of the laser fiber in the desired location, superficial to the fascial level, and well away from the deep venous system. Under direct ultrasound visualization, the laser fiber was activated, and the laser fiber was slowly withdrawn, thereby ablating the incompetent delicatessen department manager vein. The laser fiber was then removed, and manual pressure was used to achieve hemostasis. Attention was then redirected to the long 4 Estonian sheath which had been previously placed intraluminally within the right great saphenous vein. Perivenous tumescent anesthesia was injected from the 4 Estonian sheath exit site up to the right sapheno?femoral junction. This was performed segmentally using ultrasound imaging. The AngioDynamics laser fiber was then introduced into the 4 Estonian sheath and coupled appropriately. Ultrasonography was used to confirm that the tip of the laser fiber was positioned within the right great saphenous vein approximately 2-1/2 cm distal to the right sapheno?femoral junction. The patient was placed in Trendelenburg position and the laser fiber was activated. The AngioDynamics laser was slowly withdrawn at a constant rate throughout the length of the right great saphenous vein, thereby ablating the right great saphenous vein segmentally. The energy applied was approximately 60-80 J/cm. Following the laser ablation, the laser fiber and sheath were removed, and manual pressure was briefly applied to the percutaneous access site to achieve hemostasis. Attention was then directed to the incompetent right small saphenous vein, into which a micropuncture sheath had been previously placed. A 0.035 inch guidewire was introduced intraluminally, and its tip was positioned within the proximal portion of the right small saphenous vein. The long 4 Estonian sheath was then advanced over the guidewire, and into position intraluminally within the right small saphenous vein. Perivenous tumescent anesthesia was injected from the 4 Estonian sheath exit site up to the tip of the sheath within the proximal portion of the right small saphenous vein. This was performed segmentally using ultrasound imaging. The AngioDynamics laser fiber was then introduced into the 4 Estonian sheath and coupled appropriately. Ultrasonography was used to confirm that the tip of the laser fiber was positioned within the proximal right small saphenous vein, several centimeters distal to its junction with the deep venous system, and remaining within the superficial portion of the right small saph enous vein. The patient was placed in Trendelenburg position and the laser fiber was activated. The AngioDynamics laser was slowly withdrawn at a constant rate throughout the length of the right small saphenous vein, thereby ablating the right small saphenous vein segmentally. The energy applied was approximately 60-80 J/cm. Following the laser ablation, the laser fiber and sheath were removed, and manual pressure was briefly applied to the percutaneous access site to achieve hemostasis. Attention was then redirected to the micropuncture sheath which had been previously placed intraluminally within the right anterior accessory saphenous vein. A 0.035 inch guidewire was introduced intraluminally over which the long 4 Estonian sheath was advanced. Perivenous tumescent anesthesia was then injected from the 4 Estonian sheath exit site up to the tip of the sheath in the proximal right anterior accessory saphenous vein. The AngioDynamics laser fiber was then introduced into the 4 Estonian sheath and coupled appropriately. Ultrasonography was used to confirm that the tip of the laser fiber was positioned within the proximal portion of the right anterior accessory saphenous vein, approximately 2 cm distal to its junction with the deep venous system. The patient was placed in Trendelenburg position and the laser fiber was activated. The AngioDynamics laser was slowly withdrawn at a constant rate throughout the length of the right anterior accessory saphenous vein, thereby ablating the vein segmentally. The energy applied was approximately 60-80 J/cm. Following the laser ablation, the laser fiber and sheath were removed, manual pressure was briefly applied to the percutaneous access site to achieve hemostasis. After assuring satisfactory hemostasis, the access sites were approximated using [place] and Steri-Strips. Dry sterile gauze dressings were applied over each of the access sites, and the leg was wrapped from the base of the toes to the upper thigh with Kerlix, followed by William wrap. The blood loss for the procedure was minimal. The sponge, needle, and instrument counts at the end of the procedure were correct. The patient tolerated the procedure well and was transported from the operating room to the postanesthesia care unit in stable condition. The amount of tumescent anesthesia utilized, number of joules applied, and treatment times were recorded elsewhere. - Complications None - Admit VTE Documentation VTE Present on Admission: No VTE Mechan Device Prophylaxis: SCD's - Left VTE Pharm Prophylaxis ordered?: Yes
== END 2018-06-30 15:28 | disposition home or self-care (01) ==
LOC: SDC 09:46 → AC 09:47
PROVIDERS: Family Provider Family Medicine; PCP Family Medicine; Referring Provider Surgery; Visit Provider Surgery
PROC: (CPT 36478; principal; 2018-06-30 11:15)
DX: I87.321 Chronic venous hypertension (idiopathic) with inflammation of right lower extremity (principal); M79.89 Other specified soft tissue disorders; R60.0 Localized edema; I27.20 Pulmonary hypertension, unspecified; I48.91 Unspecified atrial fibrillation; Z95.2 Presence of prosthetic heart valve
CPT/HCPCS: 36478; 36479; 80048; 85027; J7040; J7120; C1894; J2405

== ENCOUNTER → 2018-10-05 07:44 | Outpatient (CLI) | payer BC, SELFPAY ==
[2018-06-30 10:03] VITALS: BMI 28.8
--- NOTE | 2018-10-05 07:46 | VDLE_ITS ---
Reason For Study: Pain, s/p EVLA RIGHT LEFT CFV is compressible, spontaneous, phasic, CFV is compressible, spontaneous, phasic, competent and demonstrates normal competent, and demonstrates normal augmentation. augmentation. FV is compressible, spontaneous, phasic, competent and demonstrates normal augmentation. POP V is compressible, spontaneous, phasic, competent and demonstrates normal augmentation. T/P Trunk is compressible. PTV is compressible. RT PerV is compressible. Rt GSV, Rt ASV, and Rt SSV are occluded s/p EVLA Rt GSV in the distal/mid calf is compressible with no flow noted Rt Perf noted 11cm proximal to the medial malleolus is Incompetent with reflux greater than 0.5sec Varicosities in the calf and thigh are partially compressible with bright intraluminal echoes consistent with chronic SVT. Procedure Exam performed in department. A preliminary report was called and/or faxed to Dr. Gonzalez. Interpretation Summary Deep veins of the right lower extremity are patent and compressible segmentally. There is no evidence of right lower extremity deep vein thrombosis. Valvular competence appears intact within the proximal deep venous system on the right . The right greater saphenous vein, small saphenous vein, and accessory saphenous vein are occluded, consistent with a prior endovenous ablation procedure. An incompetent commercial lines insurance agent vein is noted in the right calf, located 11 centimeters proximal to the right medial malleolus. Chronic venous changes are noted in superficial varicosities in the right thigh and calf, which are partially compressible and demonstrate bright intraluminal echogenicity. Ordering Physician: Dominick Gonzalez Referring Physician: Lavon Mc Performed By: Cathie Mcnamara, RDCS, RVT
== END ==
PROVIDERS: Family Provider Family Medicine; PCP Family Medicine; Referring Provider Surgery; Visit Provider Surgery
DX: I83.10 Varicose veins of unspecified lower extremity with inflammation (principal); M79.609 Pain in unspecified limb
CPT/HCPCS: 93971